=== PATIENT | female | born 1975 | race Caucasian/White ===

== ENCOUNTER 2017-06-13 23:24 | Emergency (ER) | payer SELFPAY ==
[2017-06-13 23:30] VITALS: BP 138/72; PULSE 87; RESP 20; TEMP 37.2; O2SAT 96; BMI 51.5
--- NOTE | 2017-06-14 00:02 | HMH.EDHA ---
ED Disposition Clinical Impression: Migraine Qualifiers: Migraine type: unspecified Status migrainosus presence: with status migrainosus Intractability: intractable Qualified Code(s): G43.911 - Migraine, unspecified, intractable, with status migrainosus Disposition: Home, Self-Care Condition on Discharge: Good Instructions: DI for Migraine Additional Instructions: Additional instructions for HEADACHE: See your physician as soon as possible for further evaluation. Return immediately if worsening headache, vomiting, problems with vision or speech, fever, numbness or weakness of the extremities, neck pain or stiffness. - Critical Care Critical Care Time: No Attestation: On 06/13/17, the high probability of a clinically significant, sudden or life threatening deterioration of the following system(s) required my full and direct attention, intervention and personal management. The time I documented below is in addition to time spent performing reported procedures but includes the following listed in this critical care notation. Medical Decision Making Vital Signs: 06/13/17 23:30 Temperature 98.9 F Temperature Source Oral Pulse Rate [Left Radial] 87 Respiratory Rate 20 Blood Pressure [Left Arm] 138/72 Blood Pressure Mean [Left Arm] 94 02 Sat by Pulse Oximetry 96 Oxygen Delivery Method Room Air Orders (Tests/Meds): ED MEDICATIONS Discontinued Medications Generic Name Dose Route Start Last Admin Trade Name Freq PRN Reason Stop Dose Admin Hydromorphone HCl 2 mg 06/14/17 00:12 06/14/17 00:22 Dilaudid 2mg/Ml Syringe IM 06/14/17 00:13 2 mg ONCE ONE Administration Promethazine HCl 25 mg 06/14/17 00:12 06/14/17 00:22 Phenergan 25mg/Ml 1ml Vial IM 06/14/17 00:13 25 mg ONCE ONE Administration - Noble Inquiry Pt receiving controlled substance: Yes Noble was queried for this patient: Yes Reference #:: [id number] Risks and benefits of using a controlled substance: were not discussed with pt by me (no rx given) Comment: 9 rxs. last rx xanax on 05/24/17. Medical Decision Making Narrative: CTs of brain 2016 and 2015X2. MRI brain 2015. All negative. 1:00 AM: Patient states the medicine has worked she feels better and would like to be discharged. Headache HPI - General Chief Complaint: Headache Stated Complaint: Migraine Headache Mode of Arrival: Wheelchair Limitations: No Limitations Description of Symptoms (Recalled from ER Triage Doc. by RN): Pt reports migraine, with nausea and blurred vision - History of Present Illness HPI Narrative: She has a long history of migraines since the age of 16. She now presents with what she describes as a typical migraine that started yesterday. She describes pain that goes from the back of her head all the way up to both temples and the top of her head. She has nausea, but took Phenergan and therefore has not had any vomiting. She has blurred vision and photophobia. She says when she comes to the emergency room she gets a shot of Dilaudid and Phenergan, which is the only thing that works. She says that she has had other medications such as Toradol and Compazine and others which do not work. She is on Inderal. She does not have any rescue medications at home. She has been on medications that have caused interactions with her other meds. She says she took 800 mg ibuprofen yesterday evening without improvement. - Related Data Home Medications Medication Instructions Recorded Confirmed Duloxetine HCl 20 mg PO BID 06/13/17 06/13/17 Furosemide [Lasix 20mg tab] 20 mg PO DAILY 06/13/17 06/13/17 Levothyroxine Sodium [Synthroid 125 mcg PO DAILY 06/13/17 06/13/17 125mcg (0.125mg) tablet] Promethazine HCl [Phenergan 25mg 25 mg PO NEEDED PRN 06/13/17 06/13/17 tab] Propranolol HCl 10 mg PO BID 06/13/17 06/13/17 Allergies Allergy/AdvReac Type Severity Reaction Status Date / Time sulfamethazine Allergy Mild I-HIVES Verifie
[2017-06-14 01:05] VITALS: BP 138/84
== END 2017-06-14 01:07 | disposition home or self-care (01) ==
PROVIDERS: Emergency Provider Emergency Medicine; Family Provider Internal Medicine Adolescent Medicine
DX: G43.911 Migraine, unspecified, intractable, with status migrainosus (principal); F17.210 Nicotine dependence, cigarettes, uncomplicated; E11.9 Type 2 diabetes mellitus without complications; Z91.041 Radiographic dye allergy status; Z88.5 Allergy status to narcotic agent; Z88.2 Allergy status to sulfonamides; Z79.899 Other long term (current) drug therapy; Z91.09 Other allergy status, other than to drugs and biological substances
CPT/HCPCS: 96372; 99282

== ENCOUNTER 2017-06-30 10:04 | Emergency (ER) | payer OTHER, SELFPAY ==
[2017-06-30 10:04] VITALS: BP 113/64; PULSE 90; RESP 24; TEMP 36.4; O2SAT 98; BMI 51.5
[2017-06-30 10:37] LABS: POC Glucose,Bedside 226 mg/dL
--- NOTE | 2017-06-30 10:40 | HMH.EDGENADL ---
ED Disposition Clinical Impression: Anxiety state, Muscle spasms of both lower extremities Migraine Qualifiers: Migraine type: unspecified Status migrainosus presence: with status migrainosus Intractability: not intractable Qualified Code(s): G43.901 - Migraine, unspecified, not intractable, with status migrainosus Disposition: Home, Self-Care Condition on Discharge: Good Instructions: Migraine -- Adult, DI for Anxiety -- Adult Additional Instructions: Follow-up with Dr. Bass for refill of Xanax. Additional instructions for HEADACHE: See your physician as soon as possible for further evaluation. Return immediately if worsening headache, vomiting, problems with vision or speech, fever, numbness or weakness of the extremities, neck pain or stiffness. Prescriptions: Cyclobenzaprine HCl [Flexeril 10mg tablet] 10 mg PO TIDP PRN #10 tab PRN Reason: Muscle Spasm Referrals: Conrad Bass MD [Primary Care Provider] - Forms: Work/School Release - Critical Care Critical Care Time: No Attestation: On 06/30/17, the high probability of a clinically significant, sudden or life threatening deterioration of the following system(s) required my full and direct attention, intervention and personal management. The time I documented below is in addition to time spent performing reported procedures but includes the following listed in this critical care notation. Medical Decision Making Vital Signs: 06/30/17 10:04 Temperature 97.6 F Temperature Source Temporal Artery Scan Pulse Rate [Right Radial] 90 Respiratory Rate 24 Blood Pressure [Right Arm] 113/64 Blood Pressure Mean [Right Arm] 80 Blood Pressure Source [Right Arm] Automatic Cuff Blood Pressure Position [Right Arm] Sitting 02 Sat by Pulse Oximetry 98 Oxygen Delivery Method Room Air - Lab Data Lab Results 06/30/17 10:29: POC Glucose 226 06/30/17 10:33: Influenza Type A Ag Negative, Influenza Type B Ag Negative 06/30/17 11:10: WBC 11.2 H, RBC 4.90, Hgb 14.1, Hct 42.5, MCV 86.7, MCH 28.7, MCHC 33.2, RDW 14.1, Plt Count 288, MPV 9.6, Neut % (Auto) 72.4, Lymph % (Auto) 19.7, [place] % (Auto) 5.0, Eos % (Auto) 2.4, Baso % (Auto) 0.5, Neut # (Auto) 8.1 H, Lymph # (Auto) 2.2, [place] # (Auto) 0.6, Eos # (Auto) 0.3, Baso # (Auto) 0.1 06/30/17 11:10: Sodium 138, Potassium 3.7, Chloride 101, Carbon Dioxide 28, Anion Gap 12.7, BUN 13, Creatinine 0.94, Estimated Creat Clear 66, Estimated GFR 65, Est GFR ( Amer) 78, Glucose 197 H, Calcium 8.7, Total Bilirubin 0.6, AST 27, ALT 41, Alkaline Phosphatase 107, Total Protein 7.2, Albumin 3.1 L, Globulin 4.1 H, Albumin/Globulin Ratio 0.8 L Result diagrams: 06/30/17 11:10 06/30/17 11:10 Orders (Tests/Meds): ED MEDICATIONS Discontinued Medications Generic Name Dose Route Start Last Admin Trade Name Freq PRN Reason Stop Dose Admin Alprazolam 2 mg 06/30/17 11:00 06/30/17 11:50 Xanax 1mg Tablet PO 06/30/17 11:01 2 mg ONCE ONE Administration Morphine Sulfate 4 mg 06/30/17 10:57 06/30/17 11:20 Morphine 4mg/Ml Syringe IV 06/30/17 10:58 4 mg ONCE ONE Administration Promethazine HCl 12.5 mg 06/30/17 10:58 06/30/17 11:20 Phenergan 25mg/Ml 1ml Vial IV 06/30/17 10:59 12.5 mg ONCE ONE Administration Sodium Chloride 25 ml 06/30/17 10:58 06/30/17 12:08 Sod Chlor 0.9% 25ml Bag IV 06/30/17 10:59 25 ml ONCE ONE Administration ORDERS Category Date Time Status POC Glucose,Bedside Stat Lab 06/30/17 10:22 Ordered - CT Data CT Scan: Head Time Received: 12:[address] Reviewed: Yes: I have viewed the radiologist's interpretation Preliminary Findings: Normal/NAD - Noble Inquiry Pt receiving controlled substance: Yes Noble was queried for this patient: Yes Reference #:: [id number] Risks and benefits of using a controlled substance: were not discussed with pt by me (not given rx for home) Comment: 9 rxs. last rx 30 xanax 2 mg on 05/24/17 Medical Decision Making N
--- NOTE | 2017-06-30 10:57 | CT_ITS ---
CT head/brain wo con HISTORY: ITS.REASON: headache, dizziness ORDERING PHYSICIAN: Josemanuel Patrick MD PATIENT AGE: 42 years COMPARISON: None TECHNIQUE: Axial images obtained without contrast. Brain and bone windows reviewed. FINDINGS: No midline shift, mass effect, intracranial hemorrhage, hydrocephalus, or extra-axial fluid collection is evident. There is a mildly prominent cisterna magna as a normal variant The calvarium has an unremarkable appearance. No mastoid effusion. No sinus air-fluid levels.. IMPRESSION: No acute intracranial findings.
[2017-06-30 11:27] LABS: Basophils # 0.1 K/mm3 (0-0.2); Basophils % 0.5 % (0.1-2.0); Eosinophils # 0.3 K/mm3 (0.0-0.4); Eosinophils % 2.4 % (0.1-12.0); Hematocrit 42.5 % (37.0-47.0); Hemoglobin 14.1 g/dL (12.2-16.2); Lymphocytes # 2.2 K/mm3 (0.7-4.5); Lymphocytes % 19.7 K/mm3 (10-50); Mean Corpuscular HGB Conc 33.2 g/dL (31.8-35.4); Mean Corpuscular Hemoglobin 28.7 pg (27.0-31.2); Mean Corpuscular Volume 86.7 fl (81-99); Mean Platelet Volume 9.6 fl (7.4-10.4); Monocytes # 0.6 K/mm3 (0.1-1.0); Neutrophils # 8.1 K/mm3 (1.8-7.8); Neutrophils % 72.4 % (37.0-80.0); Platelet Count 288 K/mm3 (142-424); Red Cell Distribution Width 14.1 % (11.5-17.5); White Blood Count 11.2 K/mm3 (4.8-10.8)
[2017-06-30 11:32] LABS: Alanine Aminotransferase 41 U/L (12-78); Albumin Level 3.1 gm/dL (3.4-5.0); Albumin/Globulin Ratio 0.8 (1.1-1.8); Alkaline Phosphatase 107 U/L (46-116); Anion Gap 12.7 mEq/L (5-15); Aspartate Amino Transferase 27 U/L (15-37); Bilirubin,Total 0.6 mg/dL (0.2-1.0); Blood Urea Nitrogen 13 mg/dL (7-18); Calcium 8.7 mg/dL (8.5-10.1); Carbon Dioxide 28 mmol/L (21.0-32.0); Chloride 101 mmol/L (98-107); Creatinine Clearance Estimated 66 mL/min (0-300); Creatinine,Serum 0.94 mg/dL (0.55-1.02); Estimated Glomerular Filt Rate 65 ml/min (>60); GFR (African American) 78 ML/MIN (>60); Globulin 4.1 gm/dl (1.3-3.2); Glucose 197 mg/dL (74-106); Potassium 3.7 mmoL/L (3.5-5.1); Sodium 138 mmol/L (136-145); Total Protein,Serum 7.2 gm/dL (6.4-8.2)
[2017-06-30 12:52] VITALS: BP 122/75; PULSE 65; RESP 18; TEMP 36.7; O2SAT 99
== END 2017-06-30 12:52 | disposition home or self-care (01) ==
PROVIDERS: Emergency Provider Emergency Medicine; Family Provider Internal Medicine Adolescent Medicine; PCP Internal Medicine Adolescent Medicine
DX: M62.838 Other muscle spasm (principal); F41.9 Anxiety disorder, unspecified; G43.901 Migraine, unspecified, not intractable, with status migrainosus; Z79.899 Other long term (current) drug therapy; Z88.2 Allergy status to sulfonamides; Z88.6 Allergy status to analgesic agent; E11.9 Type 2 diabetes mellitus without complications; F17.210 Nicotine dependence, cigarettes, uncomplicated
CPT/HCPCS: 70450; 80053; 82962; 85025; 87275; 87276; 99282

== ENCOUNTER → 2017-07-23 11:43 | Outpatient (CLI) | payer OTHER, SELFPAY ==
[2017-07-23 12:14] LABS: Basophils # 0.1 K/mm3 (0-0.2); Basophils % 0.6 % (0.1-2.0); Eosinophils # 0.3 K/mm3 (0.0-0.4); Hematocrit 44.7 % (37.0-47.0); Hemoglobin 14.9 g/dL (12.2-16.2); Lymphocytes # 2.4 K/mm3 (0.7-4.5); Lymphocytes % 21.3 K/mm3 (10-50); Mean Corpuscular HGB Conc 33.3 g/dL (31.8-35.4); Mean Corpuscular Hemoglobin 29.8 pg (27.0-31.2); Mean Corpuscular Volume 89.5 fl (81-99); Mean Platelet Volume 10.1 fl (7.4-10.4); Monocytes # 0.5 K/mm3 (0.1-1.0); Monocytes % 4.4 % (1.7-9.3); Neutrophils # 7.8 K/mm3 (1.8-7.8); Neutrophils % 70.7 % (37.0-80.0); Platelet Count 324 K/mm3 (142-424); Red Blood Count 4.99 M/mm3 (4.20-5.40); Red Cell Distribution Width 14.3 % (11.5-17.5)
[2017-07-23 12:46] LABS: Alanine Aminotransferase 38 U/L (12-78); Albumin Level 3.2 gm/dL (3.4-5.0); Albumin/Globulin Ratio 0.7 (1.1-1.8); Alkaline Phosphatase 135 U/L (46-116); Aspartate Amino Transferase 24 U/L (15-37); Bilirubin,Total 0.3 mg/dL (0.2-1.0); Blood Urea Nitrogen 18 mg/dL (7-18); Calcium 8.8 mg/dL (8.5-10.1); Carbon Dioxide 27 mmol/L (21.0-32.0); Chloride 102 mmol/L (98-107); Creatine Kinase 36 U/L (26-192); Creatinine,Serum 1.16 mg/dL (0.55-1.02); Estimated Glomerular Filt Rate 51 ml/min (>60); GFR (African American) 61 ML/MIN (>60); Globulin 4.5 gm/dl (1.3-3.2); Glucose 246 mg/dL (74-106); Magnesium 1.6 mg/dL (1.4-2.2); Sodium 136 mmol/L (136-145); Thyroid Stimulating Hormone 4.57 uIU/ml (0.358-3.740); Total Protein,Serum 7.7 gm/dL (6.4-8.2)
[2017-07-23 12:49] LABS: Hemoglobin A1C 7.6 % (0.0-7.0)
[2017-07-23 12:56] LABS: Erythrocyte Sedimentation Rate 29 mm/hr (0-20)
[2017-07-24 18:36] LABS: Vitamin D 25 Hydroxy 15.6 ng/mL (30.0-100.0)
[2017-07-27 06:06] LABS: Antinuclear Antibodies, IFA Negative (.)
== END ==
PROVIDERS: Visit Provider Nurse Practitioner Family
DX: M79.1 Myalgia (principal); E03.9 Hypothyroidism, unspecified; E55.9 Vitamin D deficiency, unspecified; E11.69 Type 2 diabetes mellitus with other specified complication
CPT/HCPCS: 36415; 80053; 82550; 82652; 83036; 83735; 84443; 85025; 85651; 86038

== ENCOUNTER 2017-08-11 18:39 | Emergency (ER) | payer OTHER, SELFPAY ==
[2017-08-11 19:11] VITALS: BP 142/93; PULSE 96; RESP 20; TEMP 36.9; O2SAT 96; BMI 51.5
--- NOTE | 2017-08-11 19:52 | HMH.EDUTC ---
[facility] [place] Impression: Sinusitis Qualifiers: Sinusitis location: other Chronicity: unspecified Qualified Code(s): J32.9 - Chronic sinusitis, unspecified Disposition: Home, Self-Care Condition on Discharge: Good Instructions: Sinusitis, Sinus Headache, DI for Sinusitis Additional Instructions: Start antibiotic. Sinus infections may take 2-3 days to notice much improvement so be sure to use conservative measures as discussed for symptoms Flonase 2 spray in each nostril daily to help with nasal congestion, sinus an ear pressure/inflammation Lots of Fluids Sleep elevated Humidifer/vaporizer Augmentin can cause GI effects. Probiotics may help to prevent these symptoms * Monitor Temp. Tylenol and/or Ibuprofen as needed. ER if fever is no less than 101 despite alternating Tylenol and Ibuprofen * Encourage fluids, water, Gatorade, powerade, pedialyte if /toddler/or child * Warm salt water gargles for throat irritation *Warm fluids *Sore throat lozenges *Sleep elevated *humidifier or vaporizer Lots of rest Increase fluids, water, Gatorade, powerade Prescriptions: Azithromycin [Z-Pierre 250mg Tab] 250 mg PO UD DOSE PK #6 tab Dextromethorphan Polistirex [Delsym] 10 ml PO Q12 PRN #350 unruly.er.12h PRN Reason: Cough Fluticasone Propionate [Flonase 50mcg nasal spray 16gm] 2 spr NS DAILY #1 bottle Referrals: Conrad Bass MD [Primary Care Provider] - Time of Disposition: 19:58 Medical Decision Making - Medical Records Medical records reviewed: Yes: I reviewed the patient's medical records. - Noble Inquiry Pt receiving controlled substance: No Noble was queried for this patient: No Vital Signs: 08/11/17 19:11 Temperature 98.5 F Temperature Source Temporal Artery Scan Pulse Rate [Right] 96 H Respiratory Rate 20 Blood Pressure [Right Arm] 142/93 Blood Pressure Mean [Right Arm] 109 Blood Pressure Source [Right Arm] Automatic Cuff Blood Pressure Position [Right Arm] Sitting 02 Sat by Pulse Oximetry 96 Oxygen Delivery Method Room Air - Lab Data Lab results reviewed: Yes: I reviewed the patient's lab results. [facility] [place] - General Stated complaint: left ear,abd pain Time Seen by Provider: 08/11/17 19:35 Mode of Arrival: Ambulatory Source of Information: Patient Limitations: No Limitations Description of Symptoms (Recalled from Triage Doc. by RN): EAR ACHE, CONGESTION HEENT Symptoms (Recalled from RN notes): Yes Resp Symptoms (Recalled from RN notes): No Skin Symptoms (Recalled from RN notes): No MS Symptoms (Recalled from RN notes): No Functional Status (Recalled from RN notes): N - History of Present Illness Provider Complaint: Patient states that she has been having sinus pain and pressure along with pain in her ears States that earlier today she had some nausea however did not have any vomiting State that she feel pressure like feeling in her teeth and feels like her nose is stopped all the way up - Related Data Home Medications Medication Instructions Recorded Confirmed Duloxetine HCl 20 mg PO BID 06/13/17 06/30/17 Furosemide [Lasix 20mg tab] 20 mg PO DAILY PRN 06/13/17 06/30/17 Levothyroxine Sodium [Synthroid 125 mcg PO DAILY 06/13/17 06/30/17 125mcg (0.125mg) tablet] Promethazine HCl [Phenergan 25mg 25 mg PO NEEDED PRN 06/13/17 06/30/17 tab] Propranolol HCl 10 mg PO BID 06/13/17 06/30/17 ALPRAZolam [Xanax 0.5mg tab] 0.5 mg PO DAILY PRN 06/30/17 06/30/17 Glimepiride 4 mg PO BID 06/30/17 06/30/17 Previous Rx's Medication Instructions Recorded Cyclobenzaprine HCl [Flexeril 10mg 10 mg PO TIDP PRN #10 tab 06/30/17 tablet] Azithromycin [Z-Pierre 250mg Tab] 250 mg PO UD DOSE PK #6 tab 08/11/17 Dextromethorphan Polistirex 10 ml PO Q12 PRN #350 unruly.er.12h 08/11/17 [Delsym] Fluticasone Propionate [Flonase 2 spr NS DAILY #1 bottle 08/11/17 50mcg nasal spray 16gm] Allergies Allergy/AdvReac Type Severity Reaction Status Date / Time sulf
--- NOTE | 2017-08-11 19:55 | ED_ITS ---
[facility] [place] Disposition Clinical Impression: Sinusitis Qualifiers: Sinusitis location: other Chronicity: unspecified Qualified Code(s): J32.9 - Chronic sinusitis, unspecified Disposition: Home, Self-Care Condition on Discharge: Good Instructions: Sinusitis, Sinus Headache, DI for Sinusitis Additional Instructions: Start antibiotic. Sinus infections may take 2-3 days to notice much improvement so be sure to use conservative measures as discussed for symptoms Flonase 2 spray in each nostril daily to help with nasal congestion, sinus an ear pressure/inflammation Lots of Fluids Sleep elevated Humidifer/vaporizer Augmentin can cause GI effects. Probiotics may help to prevent these symptoms * Monitor Temp. Tylenol and/or Ibuprofen as needed. ER if fever is no less than 101 despite alternating Tylenol and Ibuprofen * Encourage fluids, water, Gatorade, powerade, pedialyte if /toddler/or child * Warm salt water gargles for throat irritation *Warm fluids *Sore throat lozenges *Sleep elevated *humidifier or vaporizer Lots of rest Increase fluids, water, Gatorade, powerade Prescriptions: Azithromycin [Z-Pierre 250mg Tab] 250 mg PO UD DOSE PK #6 tab Dextromethorphan Polistirex [Delsym] 10 ml PO Q12 PRN #350 unruly.er.12h PRN Reason: Cough Fluticasone Propionate [Flonase 50mcg nasal spray 16gm] 2 spr NS DAILY #1 bottle Referrals: Conrad Bass MD [Primary Care Provider] - Time of Disposition: 19:58 Medical Decision Making - Medical Records Medical records reviewed: Yes: I reviewed the patient's medical records. - Noble Inquiry Pt receiving controlled substance: No Noble was queried for this patient: No Vital Signs: 08/11/17 19:11 Temperature 98.5 F Temperature Source Temporal Artery Scan Pulse Rate [Right] 96 H Respiratory Rate 20 Blood Pressure [Right Arm] 142/93 Blood Pressure Mean [Right Arm] 109 Blood Pressure Source [Right Arm] Automatic Cuff Blood Pressure Position [Right Arm] Sitting 02 Sat by Pulse Oximetry 96 Oxygen Delivery Method Room Air - Lab Data Lab results reviewed: Yes: I reviewed the patient's lab results. [facility] [place] HPI - General Stated complaint: left ear,abd pain Time Seen by Provider: 08/11/17 19:35 Mode of Arrival: Ambulatory Source of Information: Patient Limitations: No Limitations Description of Symptoms (Recalled from Triage Doc. by RN): EAR ACHE, CONGESTION HEENT Symptoms (Recalled from RN notes): Yes Resp Symptoms (Recalled from RN notes): No Skin Symptoms (Recalled from RN notes): No MS Symptoms (Recalled from RN notes): No Functional Status (Recalled from RN notes): N - History of Present Illness Provider Complaint: Patient states that she has been having sinus pain and pressure along with pain in her ears States that earlier today she had some nausea however did not have any vomiting State that she feel pressure like feeling in her teeth and feels like her nose is stopped all the way up - Related Data Home Medications Medication Instructions Recorded Confirmed Duloxetine HCl 20 mg PO BID 06/13/17 06/30/17 Furosemide [Lasix 20mg tab] 20 mg PO DAILY PRN 06/13/17 06/30/17 Levothyroxine Sodium [Synthroid 125 mcg PO DAILY 06/13/17 06/30/17 125mcg (0.125mg) tablet] Promethazine HCl [Phenergan 25mg 25 mg PO NEEDED PRN 06/13/17 06/30/17 tab] Propranolol HCl 10 mg PO BID 06/13/17 06/30/17 ALP
[2017-08-11 19:59] VITALS: BP 140/90; PULSE 90; RESP 20; TEMP 36.9
== END 2017-08-11 20:08 | disposition home or self-care (01) ==
PROVIDERS: Emergency Provider Nurse Practitioner; Family Provider Internal Medicine Adolescent Medicine; PCP Internal Medicine Adolescent Medicine
DX: J32.9 Chronic sinusitis, unspecified (principal); E11.9 Type 2 diabetes mellitus without complications; F17.210 Nicotine dependence, cigarettes, uncomplicated; Z88.2 Allergy status to sulfonamides; Z88.6 Allergy status to analgesic agent
CPT/HCPCS: 99201

== ENCOUNTER → 2018-04-21 11:28 | Outpatient (CLI) | payer MEDICAID, SELFPAY ==
[2018-04-21 12:11] LABS: Basophils % 0.3 % (0.1-2.0); Eosinophils # 0.2 K/mm3 (0.0-0.4); Eosinophils % 1.7 % (0.1-12.0); Hematocrit 42.6 % (37.0-47.0); Hemoglobin 13.7 g/dL (12.2-16.2); Lymphocytes # 1.9 K/mm3 (0.7-4.5); Lymphocytes % 16.2 % (10-50); Mean Corpuscular HGB Conc 32.1 g/dL (31.8-35.4); Mean Corpuscular Hemoglobin 28.1 pg (27.0-31.2); Mean Corpuscular Volume 87.5 fl (81-99); Mean Platelet Volume 9.1 fl (7.4-10.4); Monocytes # 0.6 K/mm3 (0.1-1.0); Monocytes % 4.8 % (1.7-9.3); Neutrophils # 9.1 K/mm3 (1.8-7.8); Neutrophils % 76.8 % (37.0-80.0); Platelet Count 298 K/mm3 (142-424); Red Blood Count 4.87 M/mm3 (4.20-5.40); Red Cell Distribution Width 14.3 % (11.5-17.5); White Blood Count 11.8 K/mm3 (4.8-10.8)
[2018-04-21 12:32] LABS: Hemoglobin A1C 6.9 % (0.0-7.0)
[2018-04-21 14:16] LABS: Alanine Aminotransferase 33 U/L (12-78); Albumin Level 3.6 gm/dL (3.4-5.0); Albumin/Globulin Ratio 0.9 (1.1-1.8); Alkaline Phosphatase 126 U/L (46-116); Anion Gap 17.4 mEq/L (5-15); Aspartate Amino Transferase 17 U/L (15-37); Bilirubin,Total 0.3 mg/dL (0.2-1.0); Blood Urea Nitrogen 15 mg/dL (7-18); Calcium 8.8 mg/dL (8.5-10.1); Carbon Dioxide 23 mmol/L (21.0-32.0); Chloride 101 mmol/L (98-107); Chol/HDL Ratio 3.8 (1-3.5); Cholesterol 141 mg/dL (140-200); Creatinine,Serum 0.83 mg/dL (0.55-1.02); Estimated Glomerular Filt Rate 74 ml/min (>60); Free Thyroxine Index 2.8 ug/dL (5.93-13.13); GFR (African American) 90 ML/MIN (>60); Globulin 3.8 gm/dl (1.3-3.2); Glucose 153 mg/dL (74-106); HDL Cholesterol 37 mg/dL (29-89); LDL Cholesterol 78 mg/dL (0-130); Potassium 4.4 mmoL/L (3.5-5.1); Sodium 137 mmol/L (136-145); T4 (Thyroxine) 8.8 ug/dl (4.7-13.3); Thyroid Stimulating Hormone 9.44 uIU/ml (0.358-3.740); Total Protein,Serum 7.4 gm/dL (6.4-8.2); Triglycerides 128 mg/dL (30-200); Triiodothryronine (T3) Uptake 32 % (31-39); VLDL Cholesterol 26 mg/dL (0-40)
== END ==
PROVIDERS: PCP Internal Medicine Adolescent Medicine; Visit Provider Internal Medicine Adolescent Medicine
DX: E11.69 Type 2 diabetes mellitus with other specified complication (principal); E03.9 Hypothyroidism, unspecified; E55.9 Vitamin D deficiency, unspecified
CPT/HCPCS: 36415; 80053; 80061; 83036; 84436; 84443; 84479; 85025

== ENCOUNTER → 2018-10-05 11:54 | Outpatient (CLI) | payer MEDICAID, SELFPAY ==
[2018-10-05 12:28] LABS: Basophils # 0.1 K/mm3 (0-0.2); Basophils % 0.7 % (0.1-2.0); Eosinophils # 0.4 K/mm3 (0.0-0.4); Eosinophils % 2.9 % (0.1-12.0); Hemoglobin 15.5 g/dL (12.2-16.2); Lymphocytes # 1.8 K/mm3 (0.7-4.5); Lymphocytes % 15.2 % (10-50); Mean Corpuscular HGB Conc 33.6 g/dL (31.8-35.4); Mean Corpuscular Hemoglobin 29.4 pg (27.0-31.2); Mean Corpuscular Volume 87.4 fl (81-99); Mean Platelet Volume 9.7 fl (7.4-10.4); Monocytes # 0.6 K/mm3 (0.1-1.0); Monocytes % 4.9 % (1.7-9.3); Neutrophils # 9.1 K/mm3 (1.8-7.8); Neutrophils % 76.3 % (37.0-80.0); Platelet Count 305 K/mm3 (142-424); Red Blood Count 5.26 M/mm3 (4.20-5.40); Red Cell Distribution Width 13.5 % (11.5-17.5)
[2018-10-05 12:43] LABS: Hemoglobin A1C 10.2 % (0.0-7.0)
[2018-10-05 13:04] LABS: Alanine Aminotransferase 61 U/L (12-78); Albumin Level 3.5 gm/dL (3.4-5.0); Albumin/Globulin Ratio 1.1 (1.1-1.8); Alkaline Phosphatase 127 U/L (46-116); Anion Gap 15.2 mEq/L (5-15); Aspartate Amino Transferase 46 U/L (15-37); Bilirubin,Total 0.8 mg/dL (0.2-1.0); Blood Urea Nitrogen 12 mg/dL (7-18); Calcium 8.5 mg/dL (8.5-10.1); Carbon Dioxide 24 mmol/L (21.0-32.0); Chloride 99 mmol/L (98-107); Chol/HDL Ratio 5.1 (1-3.5); Cholesterol 149 mg/dL (140-200); Creatinine,Serum 0.75 mg/dL (0.55-1.02); Estimated Glomerular Filt Rate 84 ml/min (>60); Free Thyroxine Index 3.8 ug/dL (5.93-13.13); GFR (African American) 101 ML/MIN (>60); Globulin 3.3 gm/dl (1.3-3.2); Glucose 242 mg/dL (74-106); HDL Cholesterol 29 mg/dL (29-89); LDL Cholesterol 89 mg/dL (0-130); Potassium 4.2 mmoL/L (3.5-5.1); Sodium 134 mmol/L (136-145); T4 (Thyroxine) 11.5 ug/dl (4.7-13.3); Thyroid Stimulating Hormone 3.96 uIU/ml (0.358-3.740); Total Protein,Serum 6.8 gm/dL (6.4-8.2); Triglycerides 157 mg/dL (30-200); Triiodothryronine (T3) Uptake 33 % (31-39); VLDL Cholesterol 31 mg/dL (0-40)
[2018-10-06 12:34] LABS: Rapid Plasma Reagin Ab Titer Non Reactive (NonRea<1:1)
[2018-10-06 12:35] LABS: Vitamin B12 710 pg/mL (232-1245); Vitamin D 25 Hydroxy 9.7 ng/mL (30.0-100.0)
== END ==
PROVIDERS: PCP Internal Medicine Adolescent Medicine; Visit Provider Internal Medicine Adolescent Medicine
DX: E11.69 Type 2 diabetes mellitus with other specified complication (principal); E03.9 Hypothyroidism, unspecified; G62.9 Polyneuropathy, unspecified; E55.9 Vitamin D deficiency, unspecified
CPT/HCPCS: 36415; 80053; 80061; 82607; 82652; 83036; 84436; 84443; 84479; 85025; 86592

== ENCOUNTER → 2018-12-13 12:33 | Outpatient (CLI) | payer MEDICAID, SELFPAY ==
--- NOTE | 2018-12-13 12:37 | MR_ITS ---
MR orbits face neck wo/w con CLINICAL INDICATION: ITS.REASON: CONSTANT EXOPHTHALMOS, HEADACHE DISORDER ORDERING PHYSICIAN: Conrad Bass MD PATIENT AGE: 43 years Comparison: 12/06/2018 TECHNIQUE: Coronal T2 STIR, axial 5 T1 pre- and postenhanced and sagittal T2-weighted images. FINDINGS: There is bilateral exophthalmos slightly greater on the left. No retro-orbital mass evident. The extraocular muscles are symmetric and normal in size.. The optic nerves VII unremarkable appearance. No obvious ocular mass. No enhancing lesions are evident. IMPRESSION: Bilateral exophthalmos otherwise negative MRI of the orbits
--- NOTE | 2018-12-13 12:38 | MR_ITS ---
MR head/brain wo/w con HISTORY: ITS.REASON: CONSTANT EXOPHTHALMOS, HEADACHE DISORDER ORDERING PHYSICIAN: Conrad Bass MD PATIENT AGE: 43 years Comparison: 12/06/2018 TECHNIQUE: Standard multiplanar multiecho sequences are performed without and with gadolinium enhancement . FINDINGS: No midline shift, mass effect, intracranial hemorrhage, or hydrocephalus. The cerebellopontine angles, cerebellum, and brainstem have an unremarkable appearance. No evidence of acute infarction. There is normal dow-white matter differentiation. No enhancing lesions are evident. The optic chiasm, pituitary, corpus callosum, and craniocervical junction have an unremarkable appearance. There is mild bilateral exophthalmos left more so than right. Please see MRI of the orbits for further description. No obvious retrobulbar mass. No sinus air-fluid level or mastoid effusion. IMPRESSION: 1. No acute intracranial findings. 2. Mild bilateral exophthalmos left more so than right.
--- NOTE | 2018-12-13 14:45 | XR_ITS ---
XR tibia fibula RT 2V CLINICAL INDICATION: ITS.REASON: RT HIP AND LEG PAIN ORDERING PHYSICIAN: Conrad Bass MD PATIENT AGE: 43 years Comparison: None FINDINGS: No fracture or dislocation. No lytic or blastic change. There are mild osteoarthritic changes of the knee and ankle. Soft tissue calcifications noted in the pretibial region. IMPRESSION: No acute finding
--- NOTE | 2018-12-13 14:45 | XR_ITS ---
XR hip RT 2-3V w/pelvis HISTORY: ITS.REASON: RT HIP AND LEG PAIN ORDERING PHYSICIAN: Conrad Bass MD PATIENT AGE: 43 years COMPARISON: None FINDINGS: An AP view of the pelvis shows mild to moderate osteoarthritic changes of the hips right greater than left. No fracture or dislocation. No lytic or blastic change. IMPRESSION Osteoarthritis of the hips
== END ==
PROVIDERS: PCP Internal Medicine Adolescent Medicine; Visit Provider Internal Medicine Adolescent Medicine
DX: R51 Headache (principal); H05.242 Constant exophthalmos, left eye; M79.604 Pain in right leg; M25.551 Pain in right hip
CPT/HCPCS: 70543; 70553; 73502; 73590; A9576

== ENCOUNTER → 2019-04-27 10:06 | Outpatient (CLI) | payer MEDICAID, SELFPAY ==
[2019-04-27 12:05] LABS: Free Thyroxine Index 3.4 ug/dL (5.93-13.13); T4 (Thyroxine) 11.1 ug/dl (4.7-13.3); Thyroid Stimulating Hormone 9.72 uIU/ml (0.358-3.740); Triiodothryronine (T3) Uptake 31 % (31-39)
[2019-04-27 18:45] LABS: Hemoglobin A1C 8.5 % (0.0-7.0)
[2019-04-28 11:40] LABS: Thyroid Peroxidase Antibodies 30 IU/mL (0-34)
== END ==
PROVIDERS: Visit Provider Internal Medicine Adolescent Medicine
DX: H05.20 Unspecified exophthalmos (principal); E11.69 Type 2 diabetes mellitus with other specified complication; Z79.84 Long term (current) use of oral hypoglycemic drugs
CPT/HCPCS: 36415; 83036; 84436; 84443; 84479; 86376

== ENCOUNTER 2019-09-15 23:24 | Emergency (ER) | payer OTHER, SELFPAY ==
--- NOTE | 2019-09-15 23:14 | ECG_ITS ---
APPROVED REPORT Exam: Resting ECG HR:93 bpm ECG Measurements Heart Rate 93 AXES SD 176 P 45 QRSd 96 QRS -46 QT 374 T 52 QTc 465 <Conclusion> Normal sinus rhythm Incomplete right bundle branch block Left anterior fascicular block Minimal voltage criteria for LVH, may be normal variant Abnormal ECG Electronically signed by : Blaise Spann, 09/16/2019 12:42:58
[2019-09-15 23:24] VITALS: BP 125/75; PULSE 92; RESP 15; TEMP 36.8; O2SAT 95; BMI 51.5
--- NOTE | 2019-09-15 23:38 | XR_ITS ---
PROCEDURE: XR CHEST PORTABLE CLINICAL HISTORY: chest pain Chest pain, smoker COMPARISON: [facility] CT CHEST W/O CONTRAST from 07/05/2016 CXR1 CHEST-PORTABLE from 07/05/2016 CXR CHEST(2 VIEWS-NOT PORTABLE) from 07/09/2016 XR CHEST 2V from 07/20/2019 FINDINGS: The cardiomediastinal silhouette and pulmonary vascularity are within normal limits. The lungs are clear without infiltrates, suspicious nodules, or pleural effusions. No acute bony abnormalities. IMPRESSION: No acute findings. Dictated by: Nehemiah Bryan MD 09/16/2019 07:23 Electronically signed by Nehemiah Bryan MD in [place] 09/16/2019 07:23
[2019-09-15 23:46] LABS: Appearance,Urine CLEAR (Clear); Bilirubin,Urine Negative (Negative); Blood, Urine Negative (Negative); Color,Urine YELLOW (Yellow); Glucose,Urine (UA) Negative (Negative); Ketones,Urine Negative (Negative); Leukocyte Esterase,Urine Negative (Negative); Microscopic, Urine URINE MICROSCOPIC (MICROSCOPIC); Nitrate,Urine Negative (Negative); PH,Urine 6.5 (5.0-8.5); Protein,Urine Negative (Negative); Specific Gravity, Urine 1.025 (1.005-1.030); Urobilinogen,Urine 0.2 EU/dl (0.2)
[2019-09-15 23:47] LABS: Basophils # 0.1 K/mm3 (0-0.2); Basophils % 0.7 % (0.1-2.0); Eosinophils # 0.4 K/mm3 (0.0-0.4); Eosinophils % 3.6 % (0.1-12.0); Hematocrit 42.1 % (37.0-47.0); Hemoglobin 14.1 g/dL (12.2-16.2); Lymphocytes # 1.8 K/mm3 (0.7-4.5); Lymphocytes % 16.7 % (10-50); Mean Corpuscular HGB Conc 33.4 g/dL (31.8-35.4); Mean Corpuscular Hemoglobin 28.7 pg (27.0-31.2); Mean Corpuscular Volume 86.1 fl (81-99); Mean Platelet Volume 9.8 fl (7.4-10.4); Monocytes # 0.6 K/mm3 (0.1-1.0); Monocytes % 5.2 % (1.7-9.3); Neutrophils # 8.1 K/mm3 (1.8-7.8); Neutrophils % 73.8 % (37.0-80.0); Platelet Count 327 K/mm3 (142-424); Red Blood Count 4.89 M/mm3 (4.20-5.40); Red Cell Distribution Width 13.7 % (11.5-17.5)
[2019-09-15 23:50] LABS: Chloride 98 mmol/L (98-107); Sodium 135 mmol/L (136-145)
[2019-09-15 23:53] LABS: Blood Urea Nitrogen 16 mg/dl (7-17); Calcium 9.7 mg/dl (8.4-10.2); Carbon Dioxide 27 mmol/L (22.0-30.0); Creatinine Clearance Estimated 67 mL/min (50-200); Estimated Glomerular Filt Rate 67 ml/min (>60); GFR (African American) 82 ML/MIN (>60); Glucose 230 mg/dl (74-100)
[2019-09-16 00:06] LABS: Troponin I < 0.01 ng/ml (0.00-0.034)
[2019-09-16 00:24] VITALS: BP 117/79; PULSE 81; RESP 16; O2SAT 95
--- NOTE | 2019-09-16 00:24 | HMH.EDCP ---
ED Disposition Clinical Impression: Atypical chest pain Disposition: Home, Self-Care Condition on Discharge: Good Instructions: DI for Atypical Chest Pain Additional Instructions: see pcp for follow up Prescriptions: Ketorolac Tromethamine [Toradol 10mg tablet] 10 mg PO TID 5 Days #9 tab Transmission Status: Pending to [facility] #[id number] Referrals: Jasen Muhammad MD [Primary Care Provider] - - Critical Care Critical Care Time: No Attestation: On 09/15/19, the high probability of a clinically significant, sudden or life threatening deterioration of the following system(s) required my full and direct attention, intervention and personal management. The time I documented below is in addition to time spent performing reported procedures but includes the following listed in this critical care notation. Medical Decision Making - Medical Records Medical records reviewed: Yes: I reviewed the patient's medical records. - Noble Inquiry Pt receiving controlled substance: No Vital Signs: 09/15/19 23:24 Temperature 98.2 F Temperature Source Oral Pulse Rate [Left Radial] 92 H Respiratory Rate 15 Blood Pressure [Right Arm] 125/75 Blood Pressure Mean [Right Arm] 91 Blood Pressure Source [Right Arm] Automatic Cuff Blood Pressure Position [Right Arm] Sitting 02 Sat by Pulse Oximetry 95 Oxygen Delivery Method Room Air - Lab Data Lab results reviewed: Yes: I reviewed the patient's lab results. Lab Results 09/15/19 23:36: Urine Color Yellow, Urine Appearance Clear, Urine pH 6.5, Ur Specific Fisher 1.025, Urine Protein Negative, Urine Glucose (UA) Negative, Urine Ketones Negative, Urine Blood Negative, Urine Nitrate Negative, Urine Bilirubin Negative, Urine Urobilinogen 0.2, Ur Leukocyte Esterase Negative, Ur Squamous Epith Cells 10-20 09/15/19 23:36: Troponin I < 0.01 09/15/19 23:36: WBC 11.0 H, RBC 4.89, Hgb 14.1, Hct 42.1, MCV 86.1, MCH 28.7, MCHC 33.4, RDW 13.7, Plt Count 327, MPV 9.8, Neut % (Auto) 73.8, Lymph % (Auto) 16.7, [place] % (Auto) 5.2, Eos % (Auto) 3.6, Baso % (Auto) 0.7, Neut # (Auto) 8.1 H, Lymph # (Auto) 1.8, [place] # (Auto) 0.6, Eos # (Auto) 0.4, Baso # (Auto) 0.1 09/15/19 23:36: Sodium 135 L, Potassium 4.0, Chloride 98, Carbon Dioxide 27, Anion Gap 14.0, BUN 16, Creatinine 0.90, Estimated Creat Clear 67, Estimated GFR 67, Est GFR ( Amer) 82, Glucose 230 H, Calcium 9.7 09/16/19 01:30: Troponin I < 0.01 Result diagrams: 09/15/19 23:36 09/15/19 23:36 Orders (Tests/Meds): ED MEDICATIONS Generic Name Dose Route Start Last Admin Trade Name Freq PRN Reason Stop Dose Admin Aspirin 243 mg 09/16/19 23:30 Aspirin 81mg Chewable Tablet PO 09/16/19 23:31 ONCE ONE Sodium Chloride 1,000 mls @ 999 mls/hr 09/16/19 23:30 Sod Chlor 0.9% 1000ml Bag IV 09/17/19 00:30 .Q1H1M GRETCHEN Sodium Chloride 1,000 mls @ 999 mls/hr 09/15/19 23:30 09/15/19 23:32 Sod Chlor 0.9% 1000ml Bag IV 09/16/19 00:30 999 mls/hr .Q1H1M GRETCHEN Administration Ketorolac Tromethamine 30 mg 09/16/19 23:30 Toradol 30mg/Ml Vial IV 09/16/19 23:31 ONCE ONE Ondansetron HCl 4 mg 09/16/19 23:30 Zofran 4mg/2ml Vial IV 09/16/19 23:31 ONCE ONE Discontinued Medications Generic Name Dose Route Start Last Admin Trade Name Freq PRN Reason Stop Dose Admin Aspirin 243 mg 09/15/19 23:30 09/15/19 23:32 Aspirin 81mg Chewable Tablet PO 09/15/19 23:31 243 mg ONCE ONE Administration Ketorolac Tromethamine 30 mg 09/15/19 23:30 09/15/19 23:32 Toradol 30mg/Ml Vial IV 09/15/19 23:31 30 mg ONCE ONE Administration Methylprednisolone Sodium Succinate 125 mg 09/16/19 01:05 09/16/19 01:22 Solu-Medrol 125mg/2ml Vial IV 09/16/19 01:06 125 mg ONCE ONE Administration Morphine Sulfate 4 mg 09/16/19 01:05 09/16/19 01:22 Morphine 4mg/Ml Syringe IV 09/16/19 01:06 4 mg ONCE ONE Administration Ondansetron HCl 4 mg 09/15/19 23:30 09/15/19 23:32 Z
[2019-09-16 01:54] VITALS: BP 103/72; PULSE 79; RESP 15; O2SAT 96
[2019-09-16 01:55] LABS: Troponin I < 0.01 ng/ml (0.00-0.034)
[2019-09-16 02:40] VITALS: BP 93/61; PULSE 77; RESP 15; TEMP 36.7; O2SAT 93
== END 2019-09-16 02:44 | disposition home or self-care (01) ==
PROVIDERS: Emergency Provider Emergency Medicine; PCP Emergency Medicine
DX: R07.89 Other chest pain (principal); E11.65 Type 2 diabetes mellitus with hyperglycemia; Z79.84 Long term (current) use of oral hypoglycemic drugs; F17.210 Nicotine dependence, cigarettes, uncomplicated; Z90.49 Acquired absence of other specified parts of digestive tract; Z88.2 Allergy status to sulfonamides; Z88.5 Allergy status to narcotic agent; Z79.899 Other long term (current) drug therapy
CPT/HCPCS: 71045; 80048; 81001; 84484; 85025; 93005; 96365; 96375; 99284; J2405

== ENCOUNTER → 2019-10-16 07:55 | Outpatient (POV) | payer OTHER, SELFPAY | PROVIDERS: PCP Emergency Medicine; Visit Provider Specialist | DX: M79.605 Pain in left leg (principal); M79.604 Pain in right leg; R20.0 Anesthesia of skin; R20.2 Paresthesia of skin | CPT/HCPCS: 95886; 95909 ==

== ENCOUNTER 2019-10-28 22:56 | Emergency (ER) | payer OTHER, SELFPAY ==
--- NOTE | 2019-10-28 23:06 | HMH.EDGENADL ---
ED Disposition Clinical Impression: Left otitis media Qualifiers: Otitis media type: unspecified Qualified Code(s): H66.92 - Otitis media, unspecified, left ear Disposition: Home, Self-Care Condition on Discharge: Good Instructions: DI for Middle Ear Infection-Adult Additional Instructions: Augmentin as prescribed. Clair[place] as needed for pain. Follow-up with primary care provider next week. Additional instructions for CONTROLLED SUBSTANCES: You have been prescribed a medication that is a controlled substance. Controlled substances include pain medications known as opiates and sedative nerve medications known as benzodiazepines. Tramadol, fioricet, and gabapentin are also controlled substances. Some common opiates include: Codeine (such as Tylenol #3) Hydrocodone (Vicodin, Lortab, Lorcet, Clair[place]) Oxycodone (Percocet, Percodan, Oxycodone, Oxy IR) Some common benzodiazepines include: Diazepam (Valium) Lorazepam (Ativan) Alprazolam (Xanax) Clonazepam (Klonopin) Oxazepam (Serax) All of these controlled substances are highly addictive and frequently abused. Misuse can and frequently does lead to addiction as well as overdose and . Medication should be stored in a locked cabinet or other secure storage unit. Do not store the medication in a motor vehicle. Short term supplies, 3 days or less, are prescribed because of the highly addictive nature of the medication. Any of the controlled substance medication NOT taken should be disposed of properly and NOT SAVED. The recommended method of disposing of unused medications is: Place the medicines in a sealable plastic bag. If the medicine is a solid, crush it or add water to dissolve it. Add something undesirable (cat litter, coffee grounds, etc.) Dispose of sealed bag in household trash Do not flush or pour unused medicines down a sink or drain. Controlled substances should not be shared, given away or sold. Because of the addictive nature and frequent abuse, these medications are sometimes stolen. These medications should be kept in a safe place where they cannot be stolen. Do not keep them in your car or purse. Lost or stolen prescriptions for controlled substances WILL NOT BE REFILLED in this emergency department, regardless of whether a police report was filed. Prescriptions: Hydrocod/Acet 5/325 mg [Clair[place] 5/325mg tablet] 1 tab PO Q6HP PRN #8 tab PRN Reason: Pain Transmission Status: Sent to [facility] # Amoxicillin/Potassium Clav [Augmentin 875-125 Tablet] 1 tab PO Q12H #20 tab Transmission Status: Pending to [facility] # Referrals: Conrad Bass MD [Primary Care Provider] - - Critical Care Critical Care Time: No Attestation: On 10/28/19, the high probability of a clinically significant, sudden or life threatening deterioration of the following system(s) required my full and direct attention, intervention and personal management. The time I documented below is in addition to time spent performing reported procedures but includes the following listed in this critical care notation. Medical Decision Making - Noble Inquiry Pt receiving controlled substance: Yes Noble was queried for this patient: Yes Reference #:: [id number] Risks and benefits of using a controlled substance: were discussed with pt by me Comment: 8 rxs. last rx alprazolam Orders (Tests/Meds): ED MEDICATIONS Discontinued Medications Generic Name Dose Route Start Last Admin Trade Name Freq PRN Reason Stop Dose Admin Hydrocodone Bitart/Acetaminophen 1 tab 10/28/19 23:14 [place]air[place] 5/325mg Tablet PO 10/28/19 23:15 ONCE ONE Amoxicillin/Clavulanate Potassium 1 each 10/28/19 23:14 Augmentin 500mg Tablet PO 10/28/19 23:15 ONCE ONE Protocol General Adult HPI - General Stated complaint: lEFT EAR AND jAW PAIN,suazo Time Seen by Provider: 10/28/19 23:10 - History of Present Illness HPI narrative: 3-day
[2019-10-28 23:08] VITALS: BP 154/98; PULSE 98; RESP 20; TEMP 36.9; O2SAT 97; BMI 44.3
[2019-10-28 23:34] VITALS: BP 154/88; PULSE 92; RESP 18; TEMP 36.9; O2SAT 99
== END 2019-10-28 23:36 | disposition home or self-care (01) ==
PROVIDERS: Emergency Provider Emergency Medicine; PCP Internal Medicine Adolescent Medicine
DX: H92.02 Otalgia, left ear (principal); E11.9 Type 2 diabetes mellitus without complications; Z79.899 Other long term (current) drug therapy; F17.210 Nicotine dependence, cigarettes, uncomplicated; Z90.49 Acquired absence of other specified parts of digestive tract; Z88.2 Allergy status to sulfonamides; Z88.5 Allergy status to narcotic agent
CPT/HCPCS: 99281

== ENCOUNTER 2020-04-21 17:28 | Emergency (ER) | payer OTHER, SELFPAY ==
[2020-04-21] VITALS (7 sets, daily range): BP systolic 121–142; BP diastolic 85–100; PULSE 89–116; RESP 17–18; TEMP 36.5–36.7; O2SAT 95–98; BMI 54.9
--- NOTE | 2020-04-21 17:52 | ECG_ITS ---
APPROVED REPORT Exam: Resting ECG HR:106 bpm ECG Measurements Heart Rate 106 AXES ME 168 P 46 QRSd 98 QRS -49 QT 344 T 48 QTc 456 Conclusion Sinus tachycardia Possible Left atrial enlargement Incomplete right bundle branch block Left anterior fascicular block Left ventricular hypertrophy Abnormal ECG Electronically signed by : Conrad Bass, 04/21/2020 19:53:41
--- NOTE | 2020-04-21 17:52 | XR_ITS ---
PROCEDURE: XR CHEST 2V CLINICAL HISTORY: chest donato Chest pain COMPARISON: CT [facility] CT CHEST W/O CONTRAST from 07/05/2016 CR CXR CHEST(2 VIEWS-NOT PORTABLE) from 07/09/2016 CR XR CHEST 2V from 07/20/2019 CR XR CHEST PORTABLE from 09/16/2019 FINDINGS: The cardiomediastinal silhouette and pulmonary vascularity are within normal limits. The lungs are clear without infiltrates, suspicious nodules, or pleural effusions. Degenerative changes in the AC joints and thoracic spine. IMPRESSION: No acute findings. Dictated by: Nehemiah Bryan MD 04/22/2020 05:01 Nehemiah Bryan MD in [facility] 04/22/2020 05:01
[2020-04-21 18:00] LABS: Basophils # 0.2 K/mm3 (0-0.2); Basophils % 1.7 % (0.1-2.0); Eosinophils # 0.4 K/mm3 (0.0-0.4); Eosinophils % 3.6 % (0.1-12.0); Hematocrit 46.6 % (37.0-47.0); Lymphocytes # 1.5 K/mm3 (0.7-4.5); Lymphocytes % 14.8 % (10-50); Mean Corpuscular HGB Conc 32.2 g/dL (31.8-35.4); Mean Corpuscular Hemoglobin 29.9 pg (27.0-31.2); Mean Corpuscular Volume 92.8 fl (81-99); Mean Platelet Volume 9.9 fl (7.4-10.4); Monocytes # 0.5 K/mm3 (0.1-1.0); Monocytes % 4.8 % (1.7-9.3); Neutrophils # 7.5 K/mm3 (1.8-7.8); Neutrophils % 75.1 % (37.0-80.0); Platelet Count 290 K/mm3 (142-424); Red Blood Count 5.02 M/mm3 (4.20-5.40); Red Cell Distribution Width 13.9 % (11.5-17.5)
[2020-04-21 18:02] LABS: Chloride 96 mmol/L (98-107); Potassium 4.3 mmoL/L (3.5-5.1); Sodium 133 mmol/L (136-145)
[2020-04-21 18:05] LABS: Alanine Aminotransferase 56 U/L (12-78); Albumin Level 4.4 g/dl (3.5-5.0); Albumin/Globulin Ratio 1.3 (1.1-1.8); Alkaline Phosphatase 198 U/L (38-126); Anion Gap 14.3 mEq/L (5-15); Aspartate Amino Transferase 59 U/L (14-36); Bilirubin,Total 0.5 mg/dl (0.2-1.3); Blood Urea Nitrogen 18 mg/dl (7-17); Carbon Dioxide 27 mmol/L (22.0-30.0); Creatinine Clearance Estimated 67 mL/min (50-200); Estimated Glomerular Filt Rate 67 ml/min (>60); GFR (African American) 81 ML/MIN (>60); Globulin 3.3 g/dL (1.3-3.2); Total Protein,Serum 7.7 g/dl (6.3-8.2)
[2020-04-21 18:06] LABS: Calcium 9.9 mg/dl (8.4-10.2)
[2020-04-21 18:07] LABS: Glucose 525 mg/dl (74-100)
[2020-04-21 18:20] LABS: Troponin I < 0.01 ng/ml (0.00-0.034)
[2020-04-21 18:21] LABS: VBG Base Excess -1.5 mmol/L (-2.4-2.3); VBG HCO3 23.5 mmol/L (23-30); VBG Oxygen Saturation 76.4 % (50-70); VBG PCO2 40.1 mmol/L (35-51); VBG PH 7.39 mmol/L (7.31-7.41); VBG PO2 39.3 mmol/L (28-40); VBG Total CO2 24.7 mmol/L (23-27)
[2020-04-21 18:27] LABS: Acetone, Serum (Rapid) None Detected (None Detect)
[2020-04-21 18:42] LABS: Microscopic, Urine URINE MICROSCOPIC (MICROSCOPIC)
[2020-04-21 18:55] LABS: Appearance,Urine CLEAR (Clear); Bilirubin,Urine Negative (Negative); Blood, Urine Negative (Negative); Color,Urine YELLOW (Yellow); Glucose,Urine (UA) 3+ (Negative); Ketones,Urine Negative (Negative); Leukocyte Esterase,Urine Negative (Negative); Nitrate,Urine Negative (Negative); Protein,Urine Negative (Negative); Specific Gravity, Urine 1.015 (1.005-1.030); Urobilinogen,Urine 0.2 EU/dl (0.2)
--- NOTE | 2020-04-21 19:24 | PC.NURSE ---
report received from day nurse. pt up in . no complaints offered at this time.
--- NOTE | 2020-04-21 19:29 | HMH.EDGENADL ---
ED Disposition Condition on Discharge: Fair - Critical Care Critical Care Time: No <Josemanuel Patrick - Last Filed: 04/21/20 20:36> <Jasen Muhammad - Last Filed: 04/21/20 21:52> Clinical Impression: Atypical chest pain, Hyperglycemia, Anxiety state Obesity Qualifiers: Obesity type: due to excess calories Obesity classification: adult class 3 (BMI >= 40) Serious obesity comorbidity presence: with serious comorbidity Body mass index: BMI 50.0-59.9 Qualified Code(s): E66.01 - Morbid (severe) obesity due to excess calories; Z68.43 - Body mass index [BMI] 50.0-59.9, adult Disposition: Home, Self-Care Instructions: DI for Acute Pain -- Adult Additional Instructions: call pcp in am for follow up Referrals: Conrad Bass MD [Primary Care Provider] - Attestation: On 04/21/20, the high probability of a clinically significant, sudden or life threatening deterioration of the following system(s) required my full and direct attention, intervention and personal management. The time I documented below is in addition to time spent performing reported procedures but includes the following listed in this critical care notation. Medical Decision Making - Medical Records Medical records reviewed: Yes: I reviewed the patient's medical records. MR Comment: Reviewed prior cardiac catheter result, below - Noble Inquiry Pt receiving controlled substance: Yes Noble was queried for this patient: No Reason not queried -: Emergent pt cond-no time Risks and benefits of using a controlled substance: were not discussed with pt by me - Lab Data Result diagrams: 04/21/20 17:45 04/21/20 17:45 <Josemanuel Patrick - Last Filed: 04/21/20 20:36> - Lab Data Result diagrams: 04/21/20 17:45 04/21/20 17:45 <Jasen Muhammad - Last Filed: 04/21/20 21:52> Vital Signs: 04/21/20 17:45 04/21/20 19:29 04/21/20 20:00 Temperature 97.7 F Temperature Source Oral Pulse Rate [Right Radial] 116 H 98 H 101 H Respiratory Rate 18 17 Blood Pressure [Right Arm] 142/100 H 121/92 H 142/85 H Blood Pressure Mean [Right Arm] 114 101 104 Blood Pressure Source [Right Arm] Automatic Cuff Blood Pressure Position [Right Arm] Sitting Sitting 02 Sat by Pulse Oximetry 95 96 95 Oxygen Delivery Method Room Air Room Air Room Air 04/21/20 20:30 04/21/20 21:00 04/21/20 21:30 Temperature Temperature Source Pulse Rate [Right Radial] 107 H 108 H 104 H Respiratory Rate Blood Pressure [Right Arm] 139/90 138/93 H 132/95 H Blood Pressure Mean [Right Arm] 106 108 107 Blood Pressure Source [Right Arm] Automatic Cuff Automatic Cuff Automatic Cuff Blood Pressure Position [Right Arm] Sitting Sitting Sitting 02 Sat by Pulse Oximetry 95 Oxygen Delivery Method - Lab Data Lab Results 04/21/20 17:45: WBC 10.0, RBC 5.02, Hgb 15.0, Hct 46.6, MCV 92.8, MCH 29.9, MCHC 32.2, RDW 13.9, Plt Count 290, MPV 9.9, Neut % (Auto) 75.1, Lymph % (Auto) 14.8, Ritchie % (Auto) 4.8, Eos % (Auto) 3.6, Baso % (Auto) 1.7, Neut # (Auto) 7.5, Lymph # (Auto) 1.5, Ritchie # (Auto) 0.5, Eos # (Auto) 0.4, Baso # (Auto) 0.2 04/21/20 17:45: Sodium 133 L, Potassium 4.3, Chloride 96 L, Carbon Dioxide 27, Anion Gap 14.3, BUN 18 H, Creatinine 0.90, Estimated Creat Clear 67, Estimated GFR 67, Est GFR ( Amer) 81, Glucose 525 H*, Calcium 9.9, Total Bilirubin 0.5, AST 59 H, ALT 56, Alkaline Phosphatase 198 H, Troponin I < 0.01, Total Protein 7.7, Albumin 4.4, Globulin 3.3 H, Albumin/Globulin Ratio 1.3 04/21/20 17:45: Acetone Level None detected 04/21/20 17:45: D-Dimer 0.57 04/21/20 17:45: Hemoglobin A1c 10.9 H 04/21/20 18:20: Urine Color Yellow, Urine Appearance Clear, Urine pH 6.0, Ur Specific [place] 1.015, Urine Protein Negative, Urine Glucose (UA) 3+, Urine Ketones Negative, Urine Blood Negative, Urine Nitrate Negative, Urine Bilirubin Negative, Urine Urobilinogen 0.2, Ur Leukocyte Esterase Negative, Urine WBC 3-5, Ur Squamous Epith Cells 3-5 04/21/20 18:20: VBG pH 7.39, VBG pCO2
[2020-04-21 20:03] LABS: D-Dimer 0.57 ug/mL (0.15-8.0)
[2020-04-21 20:08] LABS: Hemoglobin A1C 10.9 % (4.0-6.0)
[2020-04-21 21:11] LABS: POC Glucose,Bedside 474 (70-110)
[2020-04-21 21:11] LABS: POC Glucose,Bedside 312 (70-110)
[2020-04-21 21:46] LABS: Troponin I < 0.01 ng/ml (0.00-0.034)
== END 2020-04-21 22:03 | disposition home or self-care (01) ==
PROVIDERS: Emergency Medicine; Emergency Provider Emergency Medicine; PCP Internal Medicine Adolescent Medicine
DX: R07.89 Other chest pain (principal); E66.01 Morbid (severe) obesity due to excess calories; Z68.43 Body mass index [BMI] 50.0-59.9, adult; E11.65 Type 2 diabetes mellitus with hyperglycemia; F17.210 Nicotine dependence, cigarettes, uncomplicated; Z79.899 Other long term (current) drug therapy; Z88.2 Allergy status to sulfonamides; Z88.8 Allergy status to other drugs, medicaments and biological substances
CPT/HCPCS: 36415; 71046; 80053; 81001; 82009; 82803; 82962; 83036; 84484; 85025; 85378; 93005; 96365; 96375; 99283; J2405

== ENCOUNTER → 2020-07-16 09:39 | Outpatient (CLI) | payer OTHER, SELFPAY ==
[2020-07-16 10:19] LABS: Basophils # 0.1 K/mm3 (0-0.2); Basophils % 0.7 % (0.1-2.0); Eosinophils # 0.4 K/mm3 (0.0-0.4); Eosinophils % 3.1 % (0.1-12.0); Hemoglobin 14.3 g/dL (12.2-16.2); Lymphocytes # 2.2 K/mm3 (0.7-4.5); Lymphocytes % 18.9 % (10-50); Mean Corpuscular HGB Conc 32.4 g/dL (31.8-35.4); Mean Corpuscular Hemoglobin 28.9 pg (27.0-31.2); Mean Corpuscular Volume 89.2 fl (81-99); Mean Platelet Volume 9.9 fl (7.4-10.4); Monocytes # 0.6 K/mm3 (0.1-1.0); Monocytes % 5.5 % (1.7-9.3); Neutrophils # 8.3 K/mm3 (1.8-7.8); Neutrophils % 71.8 % (37.0-80.0); Platelet Count 273 K/mm3 (142-424); Red Blood Count 4.93 M/mm3 (4.20-5.40); Red Cell Distribution Width 14.6 % (11.5-17.5); White Blood Count 11.6 K/mm3 (4.8-10.8)
[2020-07-16 11:31] LABS: Alanine Aminotransferase 40 U/L (12-78); Albumin Level 3.8 g/dl (3.5-5.0); Albumin/Globulin Ratio 1.2 (1.1-1.8); Alkaline Phosphatase 130 U/L (38-126); Anion Gap 9.8 mEq/L (5-15); Aspartate Amino Transferase 48 U/L (14-36); Bilirubin,Total 0.3 mg/dl (0.2-1.3); Blood Urea Nitrogen 28 mg/dl (7-17); Calcium 9.5 mg/dl (8.4-10.2); Carbon Dioxide 28 mmol/L (22.0-30.0); Chloride 102 mmol/L (98-107); Chol/HDL Ratio 5.4 (1-3.5); Cholesterol 163 mg/dl (140-200); Estimated Glomerular Filt Rate 53 ml/min (>60); GFR (African American) 64 ML/MIN (>60); Globulin 3.1 g/dL (1.3-3.2); Glucose 282 mg/dl (74-100); HDL Cholesterol 30 mg/dl (40-60); Potassium 4.8 mmoL/L (3.5-5.1); Sodium 135 mmol/L (136-145); Total Protein,Serum 6.9 g/dl (6.3-8.2); Triglycerides 339 mg/dl (30-150); VLDL Cholesterol 68 mg/dL (0-40)
[2020-07-16 11:41] LABS: Direct LDL Cholesterol 77.33 mg/dL (100-129)
[2020-07-16 11:58] LABS: Hemoglobin A1C 10.6 % (4.0-6.0)
[2020-07-16 12:01] LABS: Thyroid Stimulating Hormone 5.61 uIU/mL (0.465-4.68)
== END ==
PROVIDERS: Visit Provider Internal Medicine Adolescent Medicine
DX: E11.69 Type 2 diabetes mellitus with other specified complication (principal); E03.9 Hypothyroidism, unspecified; Z79.84 Long term (current) use of oral hypoglycemic drugs
CPT/HCPCS: 36415; 80053; 80061; 83036; 84443; 85025

== ENCOUNTER 2021-01-24 19:09 | Emergency (ER) | payer OTHER, SELFPAY ==
[2021-01-24 20:31] VITALS: PULSE 119; RESP 18; TEMP 36.4; O2SAT 100; BMI 51.5
--- NOTE | 2021-01-24 20:50 | HMH.EDUTC ---
[facility] [place] Disposition Clinical Impression: Sinusitis Qualifiers: Sinusitis location: unspecified location Chronicity: acute Recurrence: non-recurrent Qualified Code(s): J01.90 - Acute sinusitis, unspecified Otitis media Qualifiers: Otitis media type: suppurative Chronicity: acute Laterality: right Recurrence: non-recurrent Spontaneous tympanic membrane rupture: without spontaneous rupture Qualified Code(s): H66.001 - Acute suppurative otitis media without spontaneous rupture of ear drum, right ear Disposition: Home, Self-Care Condition on Discharge: Good Instructions: Middle Ear Infection, Shoulder Tendinopathy, DI for Sinusitis, DI for Shoulder Tendinopathy Additional Instructions: Drink plenty of fluids. Take tylenol or ibuprofen for pain or fever. Take the medications as directed. Follow up with your regular doctor. GO TO THE ER FOR ANY WORSENING SYMPTOMS Quarantine until you know the results of your covid-19 test. If it is positive, the health department should call you and give you further instructions about your length of Quarantine and other things. Notify your school or workplace of your results and follow their instructions regarding return to work/school. Rest your shoulder and arm. Follow up with orthopedics or your primary care physician if this keeps hurting you. I put in a referral to Dr. Marley for orthopedics. He would be very good for you to follow up with have your arm pain evaluated further if it continues. His office number will be on this paperwork. I put in a referral to him, but you would still need to call his office and schedule an appointment. Prescriptions: Amoxicillin/Potassium Clav [Augmentin 875-125 Tablet] 1 tab PO Q12H 10 Days #20 tab Transmission Status: Received by [facility] #[id number] Ciprofloxacin HCl/Dexameth [Cipro 0.3%-Dex 0.1% Otic Susp 7.5mL] 2 drops EAR-RIGHT BID 7 Days #1 ml Transmission Status: Received by [facility] #[id number] Referrals: Conrad Bass MD [Primary Care Provider] - Arron Marley MD [Staff Physician] - Time of Disposition: 21:13 Medical Decision Making - Medical Records Medical records reviewed: No: I reviewed the patient's medical records. - Noble Inquiry Pt receiving controlled substance: No Vital Signs: 01/24/21 20:31 01/24/21 21:20 Temperature 97.6 F 0 F L Temperature Source Oral Pulse Rate 0 L Pulse Rate [Left] 119 H Respiratory Rate 18 0 L Blood Pressure 0/0 L 02 Sat by Pulse Oximetry 100 [facility] UTC HPI - General Stated complaint: possible sinus and ear infection inured L arm Time Seen by Provider: 01/24/21 20:50 Mode of Arrival: Ambulatory Source of Information: Patient Limitations: No Limitations Description of Symptoms (Recalled from Triage Doc. by RN): pt c/o R ear infection and sinus infection HEENT Symptoms (Recalled from RN notes): Yes (ear and sinus pressure/pain) Resp Symptoms (Recalled from RN notes): No Skin Symptoms (Recalled from RN notes): No MS Symptoms (Recalled from RN notes): No Functional Status (Recalled from RN notes): na - History of Present Illness Provider Complaint: She has had right ear pain and right sided facial swelling and pressure. She has a history of getting sinus and ear infections kind of often. She denies any exposure to covid. She also has some left arm pain when she raises her right arm up. Her pain is located in her mid humerus region on the arm. She does not have pain unless she is trying to raise her arm up. She denies other mucsculoskelatal pain. - Related Data Home Medications Medication Instructions Recorded Confirmed Furosemide [Lasix 20mg tab] 20 mg PO DAILY PRN 06/13/17 07/20/19 Levothyroxine Sodium [Synthroid 125 mcg PO DAILY 06/13/17 07/20/19 125mcg (0.125mg) tablet] Promethazine HCl [Phenergan 25mg 25 mg PO NEEDED PRN 06/13/17 07/20/19 tab] Propranolol HCl 10 mg PO BID 06/13/17 07/20/19 Glimepiride 4 mg PO BID 06/30/17
[2021-01-24 21:20] VITALS: BP 0/0; PULSE 0; RESP 0; TEMP -17.7; TEMP 0
== END 2021-01-24 21:20 | disposition home or self-care (01) ==
LOC: UTC 19:14
PROVIDERS: Emergency Provider Nurse Practitioner Family; PCP Internal Medicine Adolescent Medicine
DX: J01.90 Acute sinusitis, unspecified (principal); H66.001 Acute suppurative otitis media without spontaneous rupture of ear drum, right ear; E11.9 Type 2 diabetes mellitus without complications; F17.210 Nicotine dependence, cigarettes, uncomplicated
CPT/HCPCS: 99202; G0463

== ENCOUNTER 2021-02-23 15:16 | Emergency (ER) | payer OTHER, SELFPAY ==
[2021-02-23 15:18] VITALS: BP 139/103; PULSE 96; RESP 18; TEMP 36.7; O2SAT 97; BMI 45.6
--- NOTE | 2021-02-23 15:37 | XR_ITS ---
PROCEDURE INFORMATION: Exam: XR Left Shoulder Exam date and time: 02/23/2021 3:37 PM Age: 46 years old Clinical indication: Shoulder; Left; Patient HX: Pain for 2 days, no known injury. TECHNIQUE: Imaging protocol: XR Left shoulder. Views: 2 or more views. COMPARISON: ADI SHOU3L [id number] VIEWS 07/01/2016 7:47 PM FINDINGS: Bones/joints: No acute fracture or dislocation. Normal bone mineralization. Spurring at the margins of the AC joint. Glenohumeral joint is normal. Included ribs are unremarkable. Soft tissues: No soft tissue swelling or radiopaque foreign body. IMPRESSION: AC joint degenerative change.
--- NOTE | 2021-02-23 15:37 | XR_ITS ---
PROCEDURE INFORMATION: Exam: XR Left Humerus Exam date and time: 02/23/2021 3:37 PM Age: 46 years old Clinical indication: Pain; Upper arm; Left TECHNIQUE: Imaging protocol: XR Left humerus. Views: 2 or more views. COMPARISON: CR XR SHOULDER LT MIN 2V 02/23/2021 3:38 PM FINDINGS: Bones/joints: No acute fracture or dislocation. Bone mineralization is normal. No lytic or sclerotic osseous lesions. Soft tissues: Normal. IMPRESSION: No acute findings.
[2021-02-23 15:43] VITALS: BP 135/102; PULSE 103; RESP 18; O2SAT 93
--- NOTE | 2021-02-23 16:01 | HMH.EDGENADL ---
ED Disposition Clinical Impression: Migraine Qualifiers: Migraine type: unspecified Status migrainosus presence: without status migrainosus Intractability: not intractable Qualified Code(s): G43.909 - Migraine, unspecified, not intractable, without status migrainosus Rotator cuff strain Qualifiers: Encounter type: initial encounter Laterality: left Qualified Code(s): S46.012A - Strain of muscle(s) and tendon(s) of the rotator cuff of left shoulder, initial encounter Disposition: Home, Self-Care Condition on Discharge: Good Instructions: Migraine -- Adult Referrals: Conrad Bass MD [Primary Care Provider] - - Critical Care Critical Care Time: No Attestation: On 02/23/21, the high probability of a clinically significant, sudden or life threatening deterioration of the following system(s) required my full and direct attention, intervention and personal management. The time I documented below is in addition to time spent performing reported procedures but includes the following listed in this critical care notation. Medical Decision Making - Medical Records Medical records reviewed: Yes: I reviewed the patient's medical records. - Noble Inquiry Pt receiving controlled substance: No Vital Signs: 02/23/21 15:18 02/23/21 15:43 Temperature 98.1 F Temperature Source Oral Pulse Rate 103 H Pulse Rate [Right Radial] 96 H Respiratory Rate 18 18 Blood Pressure 135/102 H Blood Pressure [Right Arm] 139/103 H Blood Pressure Mean [Right Arm] 115 Blood Pressure Source [Right Arm] Automatic Cuff Blood Pressure Position [Right Arm] Sitting 02 Sat by Pulse Oximetry 97 93 L Oxygen Delivery Method Room Air Room Air Orders (Tests/Meds): ED MEDICATIONS Generic Name Dose Route Start Last Admin Trade Name Freq PRN Reason Stop Dose Admin Sodium Chloride 1,000 mls @ 999 mls/hr 02/23/21 15:45 02/23/21 15:53 Sod Chlor 0.9% 1000ml Bag IV 02/23/21 16:45 999 mls/hr .Q1H1M GRETCHEN Administration Discontinued Medications Generic Name Dose Route Start Last Admin Trade Name Freq PRN Reason Stop Dose Admin Diphenhydramine HCl 25 mg 02/23/21 15:37 02/23/21 15:53 Diphenhydramine 50mg/Ml Vial IV 02/23/21 15:38 25 mg ONCE ONE Administration Ketorolac Tromethamine 30 mg 02/23/21 15:37 02/23/21 15:53 Ketorolac 30mg/Ml Vial IV 02/23/21 15:38 30 mg ONCE ONE Administration Ondansetron HCl 4 mg 02/23/21 15:53 02/23/21 15:55 Ondansetron 4mg/2ml Vial IV 02/23/21 15:54 4 mg ONCE ONE Administration ORDERS Category Date Time Status XR humerus LT Stat Exams 02/23/21 15:37 Taken XR shoulder LT min 2V Stat Exams 02/23/21 15:37 Taken - Radiology Data #1 Image(s): Shoulder, Humerus Image Reviewed: Yes I reviewed the patient's radiology results, Yes I reviewed the patient's radiology image Preliminary Findings: Normal/NAD, No Fracture Seen - Reevaluation(s) Time: 17:10 Reevaluation #1: On reevaluation, patient is feeling much better. Headache is improved. Patient is tolerating oral intake without any significant difficulties. Repeat examination of the upper arm did not show any abnormality. Patient is to follow-up with PCP in 48 hours. Given strict return precautions. Verbalized understanding. Medical Decision Narrative: 46-year-old female presented to the emergency department with some left shoulder discomfort. Symptoms consistent with a rotator cuff sprain. Patient has full range of motion. Symptoms are also consistent with a migraine. Work-up initiated. General Adult HPI - General Chief complaint: Headache Stated complaint: [id number] l arm injured WITT Time Seen by Provider: 02/23/21 15:30 Mode of Arrival: Wheelchair Limitations: No Limitations Description of Symptoms (Recalled from ER Triage Doc. by RN): pt to ed per pvt car. Pt states approx 2 weeks ago she fell into her fridge at home and caught her body weight with her left arm. Pt states being evaluate
[2021-02-23 18:04] VITALS: BP 141/91; PULSE 89; RESP 18; TEMP 36.9; O2SAT 93
== END 2021-02-23 18:06 | disposition home or self-care (01) ==
PROVIDERS: Emergency Provider Emergency Medicine; PCP Internal Medicine Adolescent Medicine
DX: G43.909 Migraine, unspecified, not intractable, without status migrainosus (principal); S46.012A Strain of muscle(s) and tendon(s) of the rotator cuff of left shoulder, initial encounter
CPT/HCPCS: 73030; 73060; 96365; 96375; 99282; J2405

== ENCOUNTER 2021-03-14 10:43 | Outpatient (RCR) | payer OTHER, SELFPAY ==
--- NOTE | 2021-03-14 11:30 | HMH.OTOPEV ---
OT Inpatient Evaluation Rehab OT Outpatient Eval Start: 03/14/21 11:15 Freq: Status: Active Protocol: Document 03/14/21 11:19 RMJOSHUA (Rec: 03/14/21 11:30 [id number] Electronically Signed By Sekou Pendleton OT 03/14/21 11:19 Outpatient Therapy Subjective History Subjective History Pt is a 46 year old female who reports to therapy for initial evaluation to left shoulder. Pt has a past medical history of Migraines, HTN, Anxiety, Fibromyalgia, Neuropathy, and DM type 2. Pt reports ~2 months ago she fell and tried to catch herself with L arm. Since this accident she has had constant pain and limited AROM /strength. At this time, she has not had a MRI. She did have x-rays with no acute findings. Pt does demonstrate with significant decline in AROM and strength. Pt will continue to be seen to address deficits. Chief Complaint Pain,Stiff,Weakness Symptom Type Ache,Throb,Sharp,Dull Symptoms Relieved By Nothing Symptoms Aggravated By Physical Activity,Lifting Prior Functional Limitations None Current Functional Limitations Reaching,Lifting,Housework, Dressing,Sleeping,Recreation Activity Symptom Description Constant but Variable Level of pain today (0-10) 6 Pain scale - at its best (0-10) 5 Pain scale - at its worst (0-10) 10 Shoulder/Elbow Eval Shoulder Objective Measurements Shoulder ROM Left Shoulder Abduction Active Range of 70 degrees Motion (degrees) Shoulder Flexion Active Range of Motion 80 degrees (degrees) Query Text: Shoulder External Rotation Active Range 25 degrees of Motion (degrees) Shoulder Internal Rotation Active Range 30 degrees of Motion (degrees) pain with active ROM shoulder exam left standard pain with passive ROM shoulder exam left standard decreased ROM shoulder exam standard left Shoulder MMT Shoulder Abduction Strength Grade 2 Poor Shoulder Extension Strength Grade 2 Poor Shoulder Flexion Strength Grade 2 Poor Shoulder External Rotation Strength 2 Poor Grade Shoulder Internal Rota
== END 2021-03-14 10:45 | disposition home or self-care (01) ==
LOC: OT 10:43
PROVIDERS: PCP Internal Medicine Adolescent Medicine; Visit Provider Nurse Practitioner Family
DX: M25.512 Pain in left shoulder (principal)
CPT/HCPCS: 97166

== ENCOUNTER 2021-06-23 16:53 | Emergency (ER) | payer OTHER, SELFPAY ==
--- NOTE | 2021-06-23 16:47 | ECG_ITS ---
APPROVED REPORT Exam: Resting ECG HR:98 bpm ECG Measurements Heart Rate 98 AXES AK 179 P 56 QRSd 92 QRS -54 QT 342 T 58 QTc 398 Conclusion SINUS RHYTHM POSSIBLE LEFT ATRIAL ENLARGEMENT [-0.1mV P-WAVE IN V1/V2] PATTERN CONSISTENT WITH PULMONARY DISEASE INCOMPLETE RIGHT BUNDLE BRANCH BLOCK [90+ ms QRS DURATION, TERMINAL R IN V1/V2, 40+ ms S IN I/aVL/V4/V5/V6] LEFT ANTERIOR FASCICULAR BLOCK [QRS AXIS <= -45, QR IN I, RS IN II] POSSIBLE LEFT VENTRICULAR HYPERTROPHY [VOLTAGE CRITERIA PLUS LAE OR QRS WIDENING] MINIMAL ST DEPRESSION [0.025+ mV ST DEPRESSION] ABNORMAL ECG UNCONFIRMED REPORT Electronically signed by : Conrad Bass MD 06/23/2021 20:33:03
[2021-06-23 16:53] VITALS: BP 136/91; PULSE 104; RESP 22; TEMP 36.8; O2SAT 98; BMI 51.5
--- NOTE | 2021-06-23 17:02 | XR_ITS ---
PROCEDURE INFORMATION: Exam: XR Chest Exam date and time: 06/23/2021 5:02 PM Age: 46 years old Clinical indication: Pain; Chest pressure; Patient HX: Smoker; Additional info: Cp TECHNIQUE: Imaging protocol: XR of the chest. Views: 1 view. Other contrast: Oral; COMPARISON: CR XR CHEST 2V 04/21/2020 6:12 PM FINDINGS: Lungs: Unremarkable. No consolidation. Pleural spaces: Unremarkable. No pleural effusion. No pneumothorax. Heart/Mediastinum: Unremarkable. No cardiomegaly. Diaphragm: Slight elevation of the right hemidiaphragm. Bones/joints: Unremarkable. IMPRESSION: No acute process.
--- NOTE | 2021-06-23 17:03 | HMH.EDGENADL ---
ED Disposition Condition on Discharge: Good - Critical Care Critical Care Time: No <Adria Sen - Last Filed: 06/23/21 17:55> Condition on Discharge: Good - Critical Care Critical Care Time: No <Swathi Downey - Last Filed: 06/23/21 18:43> Clinical Impression: Panic attack Chest pain Qualifiers: Chest pain type: other chest pain Qualified Code(s): R07.89 - Other chest pain Disposition: Home, Self-Care Instructions: DI for Atypical Chest Pain Additional Instructions: You have been evaluated for chest pain and panic attack. Your work-up today does not show evidence of a heart attack. It is very important that you take all medications as prescribed. Follow-up with your primary care doctor in 1 to 2 days for symptom recheck. Return to the emergency department Referrals: Provider,Referral, [Referring] - Attestation: On 06/23/21, the high probability of a clinically significant, sudden or life threatening deterioration of the following system(s) required my full and direct attention, intervention and personal management. The time I documented below is in addition to time spent performing reported procedures but includes the following listed in this critical care notation. Medical Decision Making - Medical Records Medical records reviewed: Yes: I reviewed the patient's medical records. - Noble Inquiry Pt receiving controlled substance: No - Lab Data Result diagrams: 06/23/21 17:02 06/23/21 17:02 <Adria Sen - Last Filed: 06/23/21 17:55> - Lab Data Result diagrams: 06/23/21 17:02 06/23/21 17:02 <Swathi Downey - Last Filed: 06/23/21 18:43> Vital Signs: 06/23/21 16:53 06/23/21 17:15 Temperature 98.3 F Temperature Source Oral Pulse Rate 94 H Pulse Rate [Right Radial] 104 H Respiratory Rate 22 Blood Pressure 111/87 Blood Pressure [Right Arm] 136/91 H Blood Pressure Mean [Right Arm] 106 Blood Pressure Source [Right Arm] Automatic Cuff Blood Pressure Position [Right Arm] Sitting 02 Sat by Pulse Oximetry 98 95 Oxygen Delivery Method Room Air - Lab Data Lab Results 06/23/21 17:02: WBC 11.5 H, RBC 5.65 H, Hgb 16.0, Hct 48.7 H, MCV 86.2, MCH 28.4, MCHC 32.9, RDW 13.9, Plt Count 358, MPV 11.1 H, Neut % (Auto) 69.2, Lymph % (Auto) 20.1, Wythe % (Auto) 6.7, Eos % (Auto) 2.3, Baso % (Auto) 1.7, Neut # (Auto) 7.9 H, Lymph # (Auto) 2.3, Wythe # (Auto) 0.8, Eos # (Auto) 0.3, Baso # (Auto) 0.2 06/23/21 17:02: Sodium 132 L, Potassium 4.5, Chloride 102, Carbon Dioxide 20 L, Anion Gap 14.5, BUN 20 H, Creatinine 1.00, Estimated Creat Clear 59, Estimated GFR 59, Est GFR ( Amer) 72, Glucose 247 H, Calcium 11.0 H, Total Bilirubin 0.7, AST 65 H, ALT 48, Alkaline Phosphatase 131 H, Troponin I < 0.01, Total Protein 7.6, Albumin 4.1, Globulin 3.5 H, Albumin/Globulin Ratio 1.2 Orders (Tests/Meds): ED MEDICATIONS Generic Name Dose Route Start Last Admin Trade Name Freq PRN Reason Stop Dose Admin Sodium Chloride 10 ml 06/23/21 17:02 Sodium Chloride 0.9% 10ml Vial IV 07/23/21 17:01 NEEDED PRN to Dilute Lorazepam inj Discontinued Medications Generic Name Dose Route Start Last Admin Trade Name Freq PRN Reason Stop Dose Admin Aspirin 325 mg 06/23/21 17:01 06/23/21 17:14 Aspirin 325mg Tablet PO 06/23/21 17:02 325 mg ONCE ONE Administration Lorazepam 0.5 mg 06/23/21 17:02 06/23/21 17:13 Lorazepam 2mg/Ml Vial IV 06/23/21 17:03 0.5 mg ONCE ONE Administration ORDERS Category Date Time Status Troponin I Q3H Lab 06/23/21 20:15 Ordered Troponin I Q3H Lab 06/23/21 23:15 Ordered Medical Decision Narrative: ekg by me nsr, lae, baseline artifactual, no st elev (Adria Sen) I took over care of this patient at shift change at 6:00pm. I was asked to follow up on second troponin and help disposition accordingly. Initial troponin was undetectable. EKG shows sinus rhythm without ST segment elevations. On my initi
--- NOTE | 2021-06-23 17:14 | PC.NURSE ---
Rad at bedside
[2021-06-23 17:15] VITALS: BP 111/87; PULSE 94; O2SAT 95
[2021-06-23 17:28] LABS: Basophils # 0.2 K/mm3 (0-0.2); Basophils % 1.7 % (0.1-2.0); Chloride 102 mmol/L (98-107); Eosinophils # 0.3 K/mm3 (0.0-0.4); Eosinophils % 2.3 % (0.1-12.0); Hematocrit 48.7 % (37.0-47.0); Lymphocytes # 2.3 K/mm3 (0.7-4.5); Lymphocytes % 20.1 % (10-50); Mean Corpuscular HGB Conc 32.9 g/dL (31.8-35.4); Mean Corpuscular Hemoglobin 28.4 pg (27.0-31.2); Mean Corpuscular Volume 86.2 fl (81-99); Mean Platelet Volume 11.1 fl (7.4-10.4); Monocytes # 0.8 K/mm3 (0.1-1.0); Monocytes % 6.7 % (1.7-9.3); Neutrophils # 7.9 K/mm3 (1.8-7.8); Neutrophils % 69.2 % (37.0-80.0); Platelet Count 358 K/mm3 (142-424); Red Blood Count 5.65 M/mm3 (4.20-5.40); Red Cell Distribution Width 13.9 % (11.5-17.5); White Blood Count 11.5 K/mm3 (4.8-10.8)
[2021-06-23 17:29] LABS: Potassium 4.5 mmoL/L (3.5-5.1); Sodium 132 mmol/L (136-145)
[2021-06-23 17:31] LABS: Alanine Aminotransferase 48 U/L (12-78); Aspartate Amino Transferase 65 U/L (14-36); Blood Urea Nitrogen 20 mg/dl (7-17); Creatinine Clearance Estimated 59 mL/min (50-200); Estimated Glomerular Filt Rate 59 ml/min (>60); GFR (African American) 72 ML/MIN (>60)
[2021-06-23 17:32] LABS: Albumin Level 4.1 g/dl (3.5-5.0); Albumin/Globulin Ratio 1.2 (1.1-1.8); Alkaline Phosphatase 131 U/L (38-126); Anion Gap 14.5 mEq/L (5-15); Bilirubin,Total 0.7 mg/dl (0.2-1.3); Carbon Dioxide 20 mmol/L (22.0-30.0); Globulin 3.5 g/dL (1.3-3.2); Glucose 247 mg/dl (74-100); Total Protein,Serum 7.6 g/dl (6.3-8.2)
[2021-06-23 17:52] LABS: Troponin I < 0.01 ng/ml (0.00-0.034)
[2021-06-23 19:37] LABS: Troponin I < 0.01 ng/ml (0.00-0.034)
[2021-06-23 20:12] VITALS: BP 121/72; PULSE 89; RESP 18; TEMP 36.8; O2SAT 97
== END 2021-06-23 20:13 | disposition home or self-care (01) ==
PROVIDERS: Emergency Provider Emergency Medicine; PCP Internal Medicine Adolescent Medicine
DX: F41.0 Panic disorder [episodic paroxysmal anxiety] (principal); R07.89 Other chest pain; E11.65 Type 2 diabetes mellitus with hyperglycemia; F17.210 Nicotine dependence, cigarettes, uncomplicated; Z88.2 Allergy status to sulfonamides
CPT/HCPCS: 71045; 80053; 84484; 85025; 93005; 96375; 99282

== ENCOUNTER 2021-08-10 17:00 | Emergency (ER) | payer OTHER, SELFPAY ==
[2021-08-10 17:23] VITALS: BP 112/66; PULSE 121; RESP 16; TEMP 36.7; O2SAT 96; BMI 49.8
[2021-08-10 17:37] VITALS: BMI 49.8
--- NOTE | 2021-08-10 17:39 | CT_ITS ---
PROCEDURE INFORMATION: Exam: CT Head Without Contrast Exam date and time: 08/10/2021 6:43 PM Age: 46 years old Clinical indication: Dizziness; Additional info: Migraine, with vomiting and nausea and dizziness TECHNIQUE: Imaging protocol: Computed tomography of the head without contrast. Radiation optimization: All CT scans at this facility use at least one of these dose optimization techniques: automated exposure control; mA and/or kV adjustment per patient size (includes targeted exams where dose is matched to clinical indication); or iterative reconstruction. COMPARISON: FINDINGS: Brain: Normal. No hemorrhage. Unremarkable white matter. No mass effect. Cerebral ventricles: No ventriculomegaly. Paranasal sinuses: Visualized sinuses are unremarkable. No fluid levels. Mastoid air cells: Visualized mastoid air cells are well aerated. Bones/joints: Unremarkable. No acute fracture. Soft tissues: Unremarkable. IMPRESSION: No acute intracranial abnormality.
--- NOTE | 2021-08-10 17:54 | HMH.ITSTN ---
called the ER and spoke to Marcie and advised I need a test on this patient before we can do the CT scan
--- NOTE | 2021-08-10 18:04 | PC.NURSE ---
SEnt urine for UPT
--- NOTE | 2021-08-10 18:20 | HMH.EDGENADL ---
ED Disposition Clinical Impression: Status migrainosus Disposition: Home, Self-Care Condition on Discharge: Good Additional Instructions: Go home to rest in a dark room. Continue Tylenol, Phenergan, and Benadryl as needed. Additional instructions for HEADACHE: See your physician as soon as possible for further evaluation. Return immediately if worsening headache, vomiting, problems with vision or speech, fever, numbness or weakness of the extremities, neck pain or stiffness. Referrals: Conrad Bass MD [Primary Care Provider] - - Critical Care Critical Care Time: No Attestation: On 08/10/21, the high probability of a clinically significant, sudden or life threatening deterioration of the following system(s) required my full and direct attention, intervention and personal management. The time I documented below is in addition to time spent performing reported procedures but includes the following listed in this critical care notation. Medical Decision Making - Noble Inquiry Pt receiving controlled substance: Yes Noble was queried for this patient: Yes Risks and benefits of using a controlled substance: were not discussed with pt by me Vital Signs: 08/10/21 17:23 Temperature 98.1 F Temperature Source Oral Pulse Rate [Right Radial] 121 H Respiratory Rate 16 Blood Pressure [Right Arm] 112/66 Blood Pressure Mean [Right Arm] 81 02 Sat by Pulse Oximetry 96 - Lab Data Lab Results 08/10/21 17:45: WBC 12.2 H, RBC 5.29, Hgb 15.2, Hct 45.2, MCV 85.5, MCH 28.7, MCHC 33.6, RDW 14.6, Plt Count 346, MPV 9.9, Neut % (Auto) 74.4, Lymph % (Auto) 15.5, Carter % (Auto) 6.0, Eos % (Auto) 2.5, Baso % (Auto) 1.6, Neut # (Auto) 9.1 H, Lymph # (Auto) 1.9, Carter # (Auto) 0.7, Eos # (Auto) 0.3, Baso # (Auto) 0.2 08/10/21 17:45: Sodium 135 L, Potassium 4.5, Chloride 107, Carbon Dioxide 19 L, Anion Gap 13.5, BUN 22 H, Creatinine 1.00, Estimated Creat Clear 59, Estimated GFR 59, Est GFR ( Amer) 72, Glucose 225 H, Calcium 9.0, Total Bilirubin 0.9, AST 55 H, ALT 38, Alkaline Phosphatase 132 H, Total Protein 7.5, Albumin 3.9, Globulin 3.6 H, Albumin/Globulin Ratio 1.1 08/10/21 17:55: Urine HCG, Qual Negative Result diagrams: 08/10/21 17:45 08/10/21 17:45 Orders (Tests/Meds): ED MEDICATIONS Generic Name Dose Route Start Last Admin Trade Name Freq PRN Reason Stop Dose Admin Sodium Chloride 1,000 mls @ 999 mls/hr 08/10/21 17:45 08/10/21 17:50 Sod Chlor 0.9% 1000ml Bag IV 08/10/21 18:45 999 mls/hr .Q1H1M GRETCHEN Administration Sodium Chloride 10 ml 08/10/21 17:38 Sodium Chloride 0.9% 10ml Flush Syringe IV 09/09/21 17:37 NEEDED PRN Maintain IV Site Discontinued Medications Generic Name Dose Route Start Last Admin Trade Name Freq PRN Reason Stop Dose Admin Butorphanol Tartrate 1 mg 08/10/21 18:40 08/10/21 18:57 Butorphanol Tartrate 1 Mg/Ml Vial IV 08/10/21 18:41 1 mg ONCE ONE Administration Ketorolac Tromethamine 30 mg 08/10/21 17:40 08/10/21 17:50 Ketorolac 30mg/Ml Vial IV 08/10/21 17:41 30 mg ONCE ONE Administration Ondansetron HCl 4 mg 08/10/21 17:40 08/10/21 17:49 Ondansetron 4mg/2ml Vial IV 08/10/21 17:41 4 mg ONCE ONE Administration Prochlorperazine Edisylate 5 mg 08/10/21 18:40 08/10/21 18:57 Prochlorperazine 10mg/2ml Vial IV 08/10/21 18:41 5 mg ONCE ONE Administration - CT Data CT Scan: Head Time Received: 19:[address] Reviewed: Yes: I have viewed the radiologist's interpretation Findings Narrative: PROCEDURE INFORMATION: Exam: CT Head Without Contrast Exam date and time: 08/10/2021 6:43 PM Age: 46 years old Clinical indication: Dizziness; Additional info: Migraine, with vomiting and nausea and dizziness TECHNIQUE: Imaging protocol: Computed tomography of the head without contrast. Radiation optimization: All CT scans at this facility use at least one of these dose optimization techniques: automated expos
[2021-08-10 18:21] LABS: Basophils # 0.2 K/mm3 (0-0.2); Basophils % 1.6 % (0.1-2.0); Eosinophils # 0.3 K/mm3 (0.0-0.4); Eosinophils % 2.5 % (0.1-12.0); Hematocrit 45.2 % (37.0-47.0); Hemoglobin 15.2 g/dL (12.2-16.2); Lymphocytes # 1.9 K/mm3 (0.7-4.5); Lymphocytes % 15.5 % (10-50); Mean Corpuscular HGB Conc 33.6 g/dL (31.8-35.4); Mean Corpuscular Hemoglobin 28.7 pg (27.0-31.2); Mean Corpuscular Volume 85.5 fl (81-99); Mean Platelet Volume 9.9 fl (7.4-10.4); Monocytes # 0.7 K/mm3 (0.1-1.0); Neutrophils # 9.1 K/mm3 (1.8-7.8); Neutrophils % 74.4 % (37.0-80.0); Platelet Count 346 K/mm3 (142-424); Red Blood Count 5.29 M/mm3 (4.20-5.40); Red Cell Distribution Width 14.6 % (11.5-17.5); White Blood Count 12.2 K/mm3 (4.8-10.8)
[2021-08-10 18:22] LABS: Chloride 107 mmol/L (98-107); Sodium 135 mmol/L (136-145)
[2021-08-10 18:23] LABS: Potassium 4.5 mmoL/L (3.5-5.1)
[2021-08-10 18:25] LABS: Alanine Aminotransferase 38 U/L (12-78); Alkaline Phosphatase 132 U/L (38-126); Anion Gap 13.5 mEq/L (5-15); Aspartate Amino Transferase 55 U/L (14-36); Bilirubin,Total 0.9 mg/dl (0.2-1.3); Blood Urea Nitrogen 22 mg/dl (7-17); Carbon Dioxide 19 mmol/L (22.0-30.0); Creatinine Clearance Estimated 59 mL/min (50-200); Estimated Glomerular Filt Rate 59 ml/min (>60); GFR (African American) 72 ML/MIN (>60)
[2021-08-10 18:26] LABS: Albumin Level 3.9 g/dl (3.5-5.0); Albumin/Globulin Ratio 1.1 (1.1-1.8); Globulin 3.6 g/dL (1.3-3.2); Glucose 225 mg/dl (74-100); Total Protein,Serum 7.5 g/dl (6.3-8.2)
[2021-08-10 18:37] LABS: Urine Pregnancy, HCG Qual. Negative (Negative)
[2021-08-10 19:01] VITALS: BP 108/69; PULSE 99; O2SAT 94
[2021-08-10 19:30] VITALS: BP 117/79; PULSE 100; O2SAT 95
[2021-08-10 20:09] VITALS: BP 123/77; PULSE 104; RESP 18; TEMP 36.7; O2SAT 97
== END 2021-08-10 20:11 | disposition home or self-care (01) ==
PROVIDERS: Emergency Provider Emergency Medicine; PCP Internal Medicine Adolescent Medicine
DX: G43.111 Migraine with aura, intractable, with status migrainosus (principal); E11.9 Type 2 diabetes mellitus without complications; Z88.2 Allergy status to sulfonamides
CPT/HCPCS: 70450; 80053; 81025; 85025; 96365; 96375; 99284; J0595; J2405

== ENCOUNTER → 2022-08-20 14:17 | Outpatient (CLI) | payer OTHER, SELFPAY ==
--- NOTE | 2022-08-20 14:26 | XR_ITS ---
FINAL REPORT CLINICAL HISTORY: Low back and hip pain COMPARISON: None FINDINGS: LUMBOSACRAL SPINE SERIES Five views of the lumbosacral spine were obtained. There is no fracture present. There is no malalignment. There is moderate anterior osteophyte formation at L3-4. IMPRESSION: No acute bony abnormality. Reviewed, Interpreted and Dictated by Modesto Lou MD Transcribed by Caitlin Luke Authenticated and [facility]
--- NOTE | 2022-08-20 14:27 | XR_ITS ---
FINAL REPORT CLINICAL HISTORY: Right hip pain COMPARISON: None FINDINGS: RIGHT HIP Two views of the right hip demonstrate no acute fracture or dislocation. There are advanced hypertrophic changes of osteoarthritis at the right hip. There is moderate joint space narrowing. There is moderate acetabular hypertrophy. IMPRESSION: Moderately advanced osteoarthritis. Reviewed, Interpreted and Dictated by Modesto Lou MD Transcribed by Caitlin Luke Authenticated and . [facility]
--- NOTE | 2022-08-20 14:35 | XR_ITS ---
FINAL REPORT CLINICAL HISTORY: Left hip pain COMPARISON: None FINDINGS: LEFT HIP: Two views of the left hip demonstrate no acute fracture or dislocation. Advanced hypertrophic changes of osteoarthritis at the left hip. There is mild hip joint space narrowing. Femoral head has a smooth contour. There is mild osteophyte along the lateral acetabular margin. IMPRESSION: Mild to moderate osteoarthritis. Reviewed, Interpreted and Dictated by Modesto Lou MD Transcribed by Caitlin Luke Authenticated and [facility]
== END ==
PROVIDERS: PCP Internal Medicine Adolescent Medicine; Visit Provider Internal Medicine Adolescent Medicine
DX: M54.50 Low back pain, unspecified (principal); M25.551 Pain in right hip; M25.552 Pain in left hip; M79.651 Pain in right thigh
CPT/HCPCS: 72110; 73502

== ENCOUNTER 2022-10-14 08:09 | Day surgery (SDC) | payer OTHER, SELFPAY ==
--- NOTE | 2022-10-14 | FL_ITS ---
FINAL REPORT CLINICAL HISTORY: rt hip injection in OR FINDINGS: FLUOROSCOPY LESS THAN 1 HOUR HISTORY: Fluoroscopy guided injection. FINDINGS: Fluoroscopic guidance was provided for right hip injection. A single spot film was obtained. Six seconds of fluoroscopy time were used. IMPRESSION: As above. Reviewed, Interpreted and Dictated by Modesto Lou MD Transcribed by Caitlin Luke Authenticated and [facility]
[2022-10-14 08:10] VITALS: BP 137/80; PULSE 98; RESP 18; TEMP 36.4; O2SAT 98; BMI 47.9
[2022-10-14 08:17] VITALS: BMI 47.9
[2022-10-14 08:31] LABS: HCG Qualitative, Serum Negative (Negative)
[2022-10-14 09:11] VITALS: BP 111/69; PULSE 101; RESP 14; TEMP 36.6; O2SAT 95
--- NOTE | 2022-10-14 09:17 | EXP.OP.NOTE ---
Date of procedure: 10/14/22 Pre-op Diagnosis:: Right hip osteoarthritis Post-op Diagnosis:: Same Procedure performed:: Right hip injection with x-ray guidance for needle placement Surgeon:: Juan Francisco Hilton DO Anesthesia: other Estimated blood loss (mL): 0 Operative findings:: See dictation Operative note:: Patient was identified preoperatively. Right hip marked with yes my initials. Taken to operating suite. Placed upon on the radiolucent operating table. Given sedation. Right hip was prepped and draped normal sterile fashion. Once prepped and draped final operative timeout performed to identify proper patient procedure and extremity. Everyone involved the case agreed. No counter indications to beginning. X-ray was brought in to identify the hip joint. Because of her allergy of contrast media we did not do arthrogram but did use the x-ray machine for confirmation of needle placement within the hip capsule. 18-gauge spinal needle was introduced into the hip capsule and confirmed on the x-ray. And then injection of 80 mg of triamcinolone 3 cc of 1% lidocaine injected to the hip patient tolerated procedure well was awakened from sedation taken recovery in stable condition. Condition: stable Disposition: PACU Complications:: None apparent
[2022-10-14 09:21] VITALS: BP 108/74; PULSE 108; RESP 16; O2SAT 93
[2022-10-14 09:31] VITALS: BP 120/74; PULSE 104; RESP 16; O2SAT 95
[2022-10-14 09:52] VITALS: BP 103/52; PULSE 99; RESP 17; O2SAT 95
--- NOTE | 2022-10-14 09:58 | P.PN_ITS ---
[facility] Disclaimer: The information contained in this section may have been updated after the patient was seen, as this information can be updated by other users. Medical History (Updated 10/14/22 @ 08:09 by Brice Ruiz RN) Anxiety Depression Diabetes Fibromyalgia Hypothyroid IBS (irritable bowel syndrome) Migraines Surgical History (Updated 10/14/22 @ 08:08 by Brice Ruiz RN) History of section History of D&C History of tubal ligation Family History (Updated 10/14/22 @ 08:09 by Brice Ruiz RN) Other Family history of cardiac disorder Family history of depression Family history of diabetes mellitus Family history of liver disease Social History (Updated 10/14/22 @ 08:10 by Brice Ruiz RN) Smoking Status: Current every day smoker tobacco type: cigarettes packs per day: 1 second hand exposure: Yes alcohol intake: never substance use type: denies use current occupational status: employed Travel in the last 8 weeks: None household members: spouse housing: house [facility] Anesthesia Checklist Patient Identification Patient Identification: Verbal (Name & ) Structural Data Admitted From: Home Planned Operative Procedure/s: r hip injection Consent for Planned Operative Procedure(s) Verified: Yes NPO Status Verified Time NPO: 00:00 Additional verifications Anesthesia Reactions: No ( mean ) Hx Blood Transfusions: No Blood Transfusion Reaction: No Airway Assessment C-Spine Mobility Assessed: Yes TMJ Mobility Assessed: Yes Dentition: Good Dentition Neurological Assessment Level of Consciousness: Awake, Alert and Appropriate Anesthesia Plan Anesthesia Risk discussed: Yes Anesthesia Plan: Verified ASA Class: III Anesthesia Type: MAC
== END 2022-10-14 09:55 | disposition home or self-care (01) ==
PROVIDERS: PCP Internal Medicine Adolescent Medicine; Visit Provider Orthopaedic Surgery
PROC: (CPT 20610; principal; 2022-10-14 13:00)
DX: M16.11 Unilateral primary osteoarthritis, right hip (principal); F17.210 Nicotine dependence, cigarettes, uncomplicated
CPT/HCPCS: 20610; 77002; 84703

== ENCOUNTER 2022-11-18 09:15 | Day surgery (SDC) | payer OTHER, SELFPAY ==
--- NOTE | 2022-11-18 | XR_ITS ---
FINAL REPORT CLINICAL HISTORY: LEFT HIP INJECTION IN OR fluoro time: .6 FINDINGS: FLUOROSCOPY LESS THAN 1 HOUR HISTORY: Fluoroscopy guided injection. FINDINGS: Fluoroscopic guidance was provided for left hip injection. A single spot film was obtained. 6 seconds of fluoroscopy time were used. IMPRESSION: As above. Reviewed, Interpreted and Dictated by Soni Augustine MD Transcribed by Caitlin Luke Authenticated and [facility]
[2022-11-18 09:37] VITALS: BP 118/79; PULSE 66; RESP 18; TEMP 36.5; O2SAT 95; BMI 43.3
--- NOTE | 2022-11-18 09:39 | EXP.ANES.CKL ---
[facility] Disclaimer: The information contained in this section may have been updated after the patient was seen, as this information can be updated by other users. Medical History Anxiety Depression Diabetes Fibromyalgia Hypothyroid IBS (irritable bowel syndrome) Migraines Surgical History History of section History of D&C History of tubal ligation Family History Other Family history of cardiac disorder Family history of depression Family history of diabetes mellitus Family history of liver disease Social History Smoking Status: Current every day smoker tobacco type: cigarettes packs per day: 1 second hand exposure: Yes alcohol intake: never substance use type: denies use current occupational status: employed Travel in the last 8 weeks: None household members: spouse housing: house [facility] Anesthesia Checklist Patient Identification Patient Identification: Arm Band and Verbal (Name & ) Structural Data Planned Operative Procedure/s: left hip injection Verified Documents: Surgical Consent and History and Physical Additional verifications Anesthesia Reactions: No ( mean ) Hx Blood Transfusions: No Blood Transfusion Reaction: No Airway Assessment C-Spine Mobility Assessed: Yes TMJ Mobility Assessed: Yes Dentition: Good Dentition Neurological Assessment Level of Consciousness: Awake and Alert Anesthesia Plan Anesthesia Risk discussed: Yes Anesthesia Type: IV sedation Preoperative Comments Pre-Operative Comments: poss GA
[2022-11-18 09:52] VITALS: BMI 43.6
[2022-11-18 10:00] LABS: Urine Pregnancy, HCG Qual. Negative (Negative)
[2022-11-18 10:13] LABS: POC Glucose,Bedside 155 (70-110)
--- NOTE | 2022-11-18 10:33 | EXP.OP.NOTE ---
Date of procedure: 11/18/22 Pre-op Diagnosis:: Left hip osteoarthritis Post-op Diagnosis:: Same Procedure performed:: Left hip injection with x-ray guidance for needle placement Surgeon:: Juan Francisco Hilton DO INFORMATION SPECIALIST:: Other Anesthesia: other Estimated blood loss (mL): 0 Clinical Note:: 47-year-old female with concomitant lumbar spine issues hip osteoarthritis had previous right hip injection and got reasonably good results wished undergo left hip injection presents today for such. Operative findings:: See dictation Operative note:: Patient is identified preoperatively left hip marked yes my initials transported operative suite placed upon the in the radiolucent bed. Left hip prepped and draped normal sterile fashion. Once prepped and draped final operative timeout performed to identify proper patient procedure and extremity. Everyone involved the case agreed. No counter indications to beginning. X-rays brought into identify the hip joint. 18-gauge spinal needle was directed into the neck and the femoral head. Patient was allergic to contrast therefore no contrast was used during the procedure. Needle was placed into the capsule there is a palpable entrance into the capsule x-ray confirmed needle within the capsule and then hip was injected with 80 mg Kenalog 3 cc of lidocaine. Needle removed. Band-Aid placed. Patient waken for sedation taken recovery stable condition. Condition: stable Disposition: PACU Complications:: None apparent
[2022-11-18 10:40] VITALS: BP 125/79; PULSE 77; RESP 18; TEMP 36.3; O2SAT 94
[2022-11-18 10:50] VITALS: BP 126/74; PULSE 72; RESP 18; O2SAT 96
[2022-11-18 11:10] VITALS: BP 139/79; PULSE 74; RESP 17; O2SAT 98
== END 2022-11-18 11:10 | disposition home or self-care (01) ==
PROVIDERS: PCP Internal Medicine Adolescent Medicine; Visit Provider Orthopaedic Surgery
PROC: (CPT 20610; principal; 2022-11-18 10:45)
DX: M16.12 Unilateral primary osteoarthritis, left hip (principal); F17.210 Nicotine dependence, cigarettes, uncomplicated
CPT/HCPCS: 20610; 73502; 81025; 82962

== ENCOUNTER → 2022-11-30 16:30 | Outpatient (CLI) | payer OTHER, SELFPAY ==
[2022-11-30 17:26] LABS: Basophils # 0.1 K/mm3 (0-0.2); Basophils % 0.9 % (0.1-2.0); Eosinophils # 0.4 K/mm3 (0.0-0.4); Eosinophils % 2.4 % (0.1-12.0); Hematocrit 51.6 % (37.0-47.0); Hemoglobin 16.7 g/dL (12.2-16.2); Lymphocytes # 2.1 K/mm3 (0.7-4.5); Lymphocytes % 14.3 % (10-50); Mean Corpuscular HGB Conc 32.4 g/dL (31.8-35.4); Mean Corpuscular Hemoglobin 28.2 pg (27.0-31.2); Mean Platelet Volume 8.7 fl (7.4-10.4); Monocytes # 0.8 K/mm3 (0.1-1.0); Monocytes % 5.4 % (1.7-9.3); Neutrophils # 11.3 K/mm3 (1.8-7.8); Platelet Count 340 K/mm3 (142-424); Red Blood Count 5.93 M/mm3 (4.20-5.40); Red Cell Distribution Width 15.4 % (11.5-17.5); White Blood Count 14.7 K/mm3 (4.8-10.8)
[2022-11-30 17:41] LABS: Alanine Aminotransferase 29 U/L (12-78); Albumin Level 4.3 g/dl (3.5-5.0); Albumin/Globulin Ratio 1.5 (1.1-1.8); Alkaline Phosphatase 120 U/L (38-126); Anion Gap 12.7 mEq/L (5-15); Aspartate Amino Transferase 28 U/L (14-36); Bilirubin,Total 0.4 mg/dl (0.2-1.3); Blood Urea Nitrogen 16 mg/dl (7-17); Calcium 9.4 mg/dl (8.4-10.2); Carbon Dioxide 22 mmol/L (22.0-30.0); Chloride 106 mmol/L (98-107); Chol/HDL Ratio 3.7 (1-3.5); Cholesterol 217 mg/dl (140-200); Estimated Glomerular Filt Rate 76 ml/min (>60); GFR (African American) 92 ML/MIN (>60); Globulin 2.9 g/dL (1.3-3.2); Glucose 200 mg/dl (74-100); HDL Cholesterol 58 mg/dl (40-60); Potassium 4.7 mmoL/L (3.5-5.1); Sodium 136 mmol/L (136-145); Total Protein,Serum 7.2 g/dl (6.3-8.2); Triglycerides 244 mg/dl (30-150); VLDL Cholesterol 49 mg/dL (0-40)
[2022-11-30 17:53] LABS: Hemoglobin A1C 7.4 % (4.0-6.0)
[2022-11-30 17:58] LABS: Direct LDL Cholesterol 108.66 mg/dL (100-129)
[2022-11-30 17:59] LABS: 25-OH Vitamin D, Total 34.7 ng/mL (30-100)
[2022-11-30 18:12] LABS: Thyroid Stimulating Hormone 9.55 uIU/mL (0.465-4.68)
== END ==
PROVIDERS: PCP Internal Medicine Adolescent Medicine; Visit Provider Internal Medicine Adolescent Medicine
DX: E03.9 Hypothyroidism, unspecified (principal); E55.9 Vitamin D deficiency, unspecified; E11.69 Type 2 diabetes mellitus with other specified complication; Z79.84 Long term (current) use of oral hypoglycemic drugs
CPT/HCPCS: 36415; 80053; 80061; 82306; 83036; 84443; 85025

== ENCOUNTER → 2023-03-04 12:53 | Outpatient (POV) | payer OTHER, SELFPAY ==
--- NOTE | 2023-03-04 13:08 | EXP.PAIN.OV ---
HPI Data of Consult Patient: new to practice Consult date: 03/04/23 Requesting Physician: Merry Hilton APRN Primary Care Provider: Conrad Bass MD Consult Narrative Reason for consult: Neck pain, low back pain, right leg pain, bilateral hip pain History of present illness: Ms. Thomson is a 48 year old female who presents today as a new patient. She is a referral from Harvey Hilton's office. Today she rates her pain an 8 out of 10. Patient states her pain is all in higher bilateral hips, low back with radiating symptoms down her entire right leg as well as neck pain that goes into her shoulders. Patient does state these pains have been going on for more than a year and progressively worsened over time. Patient states that there was not any specific trauma or injury that she recalls that initially started the symptoms however she has had multiple injuries in the past including broken bones and falling through a floor. Patient does describe her pain as an aching, throbbing sensation that is worse with increased activity. Patient does state the pain interferes with her ability to perform activities of daily living such as cooking and cleaning. Patient does state that she is seeing Dr. Hilton for her hip pain and that he has done bilateral intra-articular hip injections and they did provide significant improvement. Patient does state today that her low back and right leg pain is causing the majority of her symptoms currently. Patient denies any prior imaging. Patient states she has tried [id number] Tylenol and ibuprofen along with heat and ice and topicals with minimal relief. She does state that she is currently managed with tizanidine 4 mg 3 times a day, gabapentin 300 mg 3 times daily and Tylenol. She states this combination does seem to help somewhat with her pain symptoms. Patient states she has had physical therapy in the past however it caused significant worsening of her pain. Patient denies any prior back surgery. Patient is a diabetic and states that she has to be cautious with steroid use. Patient does state that one of her current medications prohibits her from taking any NSAIDs. She does state that her daughter is currently on bedrest for and show she is trying to take care of her grandchild who has cerebral palsy. Her Noble has been reviewed and is appropriate. [id number] CC: Merry Hilton APRN [facility] Disclaimer: The information contained in this section may have been updated after the patient was seen, as this information can be updated by other users. Medical History (Updated 03/04/23 @ 13:28 by Merry Hilton APRN) Allergies Anxiety Arthritis Bronchitis Depression Diabetes Fibromyalgia History of anemia History of COVID-19 History of gastroesophageal reflux (GERD) History of stroke Hives Hypertension Hypothyroid IBS (irritable bowel syndrome) Kidney stone Migraine Migraines Pneumonia Urinary tract infection Surgical History (Updated 11/18/22 @ 09:43 by Madeline Jackson RN) History of section History of cholecystectomy History of D&C History of surgery History of tubal ligation Family History (Updated 11/18/22 @ 09:43 by Madeline Jackson RN) Other Cancer Family history of cardiac disorder Family history of depression Family history of diabetes mellitus Family history of liver disease Social History (Updated 11/18/22 @ 09:44 by Madeline Jackson RN) Smoking Status: Current every day smoker tobacco type: cigarettes packs per day: 1 second hand exposure: Yes alcohol intake: never substance use type: denies use current occupational status: employed Travel in the last 8 weeks: None household members: spouse housing: house Review of Systems Review of Systems Review of systems:: pertinent systems reviewed and negative unless documented below Review of systems (narrative): Review of Systems: General: No recent weight changes, no fever,
[2023-03-04 14:05] VITALS: BP 138/93; PULSE 125; RESP 20; O2SAT 94; BMI 44.4
== END ==
PROVIDERS: PCP Internal Medicine Adolescent Medicine; Visit Provider Nurse Practitioner Family
DX: M54.50 Low back pain, unspecified (principal); G89.29 Other chronic pain; M79.604 Pain in right leg; M54.2 Cervicalgia; M25.551 Pain in right hip; M25.552 Pain in left hip
CPT/HCPCS: 99202; G0463

== ENCOUNTER → 2023-04-29 11:01 | Outpatient (CLI) | payer OTHER, SELFPAY ==
--- NOTE | 2023-04-29 | MR_ITS ---
FINAL REPORT CLINICAL HISTORY: low back pain with radiculopathy. COMPARISON: None FINDINGS: Multiplanar MR imaging of the lumbar spine was performed without contrast. On the sagittal T2-weighted images, there is abnormal decreased signal at L2-3, L3-4, L4-5. The vertebrae are of normal height. The vertebral alignment is normal. L1-2: There is no significant canal stenosis or neural foraminal narrowing. L2-3: There is no significant canal stenosis or neural foraminal narrowing. L3-4: There is no significant canal stenosis or neural foraminal narrowing. L4-5: Mild diffuse disc bulge. Mild bilateral facet hypertrophy. Mild bilateral neuroforaminal narrowing. L5-S1: There is no significant canal stenosis or neural foraminal narrowing. IMPRESSION: Disc bulge at L4-5 with mild bilateral neuroforaminal narrowing. Reviewed, Interpreted and Dictated by Modesto Lou MD Transcribed by Caitlin Luke Authenticated and [facility]
--- NOTE | 2023-04-29 12:26 | XR_ITS ---
FINAL REPORT CLINICAL HISTORY: Neck and low back pain COMPARISON: None FINDINGS: CERVICAL SPINE 2 views of the cervical spine were obtained. There is no evidence of fracture or dislocation. Vertebrae are normal in height and alignment. There is moderate anterior osteophyte formation at C5-6. LUMBOSACRAL SPINE 3 views of the lumbar spine were obtained. There is no evidence of fracture or dislocation. The vertebral alignment is normal. There is moderate anterior osteophyte formation at L3-4. There are mild hypertrophic changes in the lower thoracic spine. No paraspinous soft tissue abnormalities identified. IMPRESSION: Degenerative changes without acute bony abnormality. Reviewed, Interpreted and Dictated by Modesto Lou MD Transcribed by Caitlin Luke Authenticated and [facility]
[2023-04-29 12:33] LABS: Basophils # 0.1 K/mm3 (0-0.2); Basophils % 0.9 % (0.1-2.0); Eosinophils # 0.4 K/mm3 (0.0-0.4); Eosinophils % 4.7 % (0.1-12.0); Hematocrit 49.1 % (37.0-47.0); Hemoglobin 16.4 g/dL (12.2-16.2); Lymphocytes # 1.7 K/mm3 (0.7-4.5); Lymphocytes % 22.3 % (10-50); Mean Corpuscular HGB Conc 33.3 g/dL (31.8-35.4); Mean Corpuscular Hemoglobin 28.7 pg (27.0-31.2); Mean Platelet Volume 9.5 fl (7.4-10.4); Monocytes # 0.6 K/mm3 (0.1-1.0); Monocytes % 7.7 % (1.7-9.3); Neutrophils # 4.8 K/mm3 (1.8-7.8); Neutrophils % 64.4 % (37.0-80.0); Platelet Count 271 K/mm3 (142-424); Red Blood Count 5.71 M/mm3 (4.20-5.40); Red Cell Distribution Width 14.1 % (11.5-17.5); White Blood Count 7.5 K/mm3 (4.8-10.8)
[2023-04-29 13:45] LABS: Alanine Aminotransferase 28 U/L (12-78); Albumin Level 4.1 g/dl (3.5-5.0); Albumin/Globulin Ratio 1.3 (1.1-1.8); Alkaline Phosphatase 95 U/L (38-126); Anion Gap 12.8 mEq/L (5-15); Aspartate Amino Transferase 35 U/L (14-36); Bilirubin,Total 0.5 mg/dl (0.2-1.3); Blood Urea Nitrogen 23 mg/dl (7-17); Calcium 9.1 mg/dl (8.4-10.2); Carbon Dioxide 24 mmol/L (22.0-30.0); Chloride 102 mmol/L (98-107); Estimated Glomerular Filt Rate 59 ml/min (>60); GFR (African American) 71 ML/MIN (>60); Globulin 3.2 g/dL (1.3-3.2); Glucose 191 mg/dl (74-100); Potassium 4.8 mmoL/L (3.5-5.1); Sodium 134 mmol/L (136-145); Total Protein,Serum 7.3 g/dl (6.3-8.2)
[2023-04-29 14:16] LABS: Thyroid Stimulating Hormone < 0.02 uIU/mL (0.465-4.68)
[2023-04-29 15:28] LABS: Hemoglobin A1C 6.8 % (4.0-6.0)
[2023-04-29 16:42] LABS: Amphetamine/Metha Screen,Urine Negative ng/ml (<1000)
[2023-04-29 16:43] LABS: Cannabinoid Screen,Urine Negative ng/ml (<50)
[2023-04-29 16:44] LABS: Barbiturates Screen,Urine Negative ng/ml (<200)
[2023-04-29 16:45] LABS: Benzodiazepines Screen,Urine Positive ng/ml (<200); Opiate Screen,Urine Negative ng/ml (<300)
[2023-04-29 16:46] LABS: Cocaine Screen,Urine Negative ng/ml (<300)
[2023-04-29 16:47] LABS: Methadone Screen,Urine Negative ng/ml (<300); Phencyclidine Screen,Urine Negative ng/ml (<25)
[2023-04-29 17:45] LABS: Vitamin B12 784 pg/mL (239-931)
[2023-04-29 17:50] LABS: Folate 8.32 ng/mL
== END ==
PROVIDERS: Nurse Practitioner Family; PCP Internal Medicine Adolescent Medicine; Visit Provider Nurse Practitioner Family
DX: G43.719 Chronic migraine without aura, intractable, without status migrainosus (principal); E11.9 Type 2 diabetes mellitus without complications; G44.86 Cervicogenic headache; Q67.0 Congenital facial asymmetry; R45.1 Restlessness and agitation; E66.9 Obesity, unspecified; Z68.42 Body mass index [BMI] 45.0-49.9, adult; Z86.69 Personal history of other diseases of the nervous system and sense organs; Z79.84 Long term (current) use of oral hypoglycemic drugs
CPT/HCPCS: 36415; 72084; 72148; 76376; 80053; 80305; 82607; 82746; 83036; 84443; 85025

== ENCOUNTER 2023-07-07 08:16 | Emergency (ER) | payer OTHER, SELFPAY ==
[2023-07-07] VITALS (9 sets, daily range): BP systolic 100–147; BP diastolic 52–96; PULSE 81–102; RESP 15–20; TEMP 36.6–36.7; O2SAT 89–100; BMI 45.4
[2023-07-07 08:49] LABS: Basophils % 0.3 % (0.1-2.0); Eosinophils # 0.3 K/mm3 (0.0-0.4); Eosinophils % 2.3 % (0.1-12.0); Hematocrit 50.4 % (37.0-47.0); Hemoglobin 16.5 g/dL (12.2-16.2); Lymphocytes # 1.9 K/mm3 (0.7-4.5); Lymphocytes % 14.3 % (10-50); Mean Corpuscular HGB Conc 32.8 g/dL (31.8-35.4); Mean Corpuscular Hemoglobin 28.9 pg (27.0-31.2); Mean Corpuscular Volume 88.3 fl (81-99); Mean Platelet Volume 8.5 fl (7.4-10.4); Monocytes # 0.7 K/mm3 (0.1-1.0); Monocytes % 5.2 % (1.7-9.3); Neutrophils # 10.3 K/mm3 (1.8-7.8); Neutrophils % 77.8 % (37.0-80.0); Platelet Count 399 K/mm3 (142-424); Red Blood Count 5.71 M/mm3 (4.20-5.40); Red Cell Distribution Width 14.7 % (11.5-17.5); White Blood Count 13.2 K/mm3 (4.8-10.8)
--- NOTE | 2023-07-07 08:52 | ED_ITS ---
Discharge Plan Disposition Patient Disposition: Home, Self-Care Prescriptions Prescriptions: New ondansetron 4 mg tablet,disintegrating 4 mg PO Q6H PRN (Reason: nausea and vomiting) Qty: 10 0RF No Action buspirone 10 mg tablet PO tizanidine 4 mg tablet PO levothyroxine 100 mcg tablet PO duloxetine 30 mg capsule,delayed release(DR/EC) PO Patient Comments: TAKE 1 CAPSULE BY MOUTH ONCE DAILY WITH 60MG DOSE Ajovy Autoinjector 225 mg/1.5 mL auto-injector 225 mg SQ QMONTH Qty: 1.5 5RF Rx Instructions: First injection to be given in office with nurse Ubrelvy 100 mg tablet 100 mg PO ONCE PRN (Reason: migraine ) Qty: 10 5RF Rx Instructions: Take 1 tablet immediately at first symptom of headache, may repeat 1 tablet after 2 hours if symptoms persist. Max dose 2 tablets in 24 hours. metformin 1,000 mg tablet 1,000 mg PO DAILY meloxicam 15 mg tablet 15 mg PO DAILY gabapentin 300 mg capsule 300 mg PO TID Farxiga 10 mg tablet 10 mg PO DAILY duloxetine 60 mg capsule,delayed release(DR/EC) 60 mg PO DAILY levothyroxine 300 mcg tablet 300 mcg PO DAILY promethazine 25 MG tablet 25 mg PO NEEDED PRN (Reason: Nausea And Vomiting) amitriptyline 50 mg tablet 25 mg PO DAILY propranolol 20 mg tablet 10 mg PO DAILY glimepiride 4 MG tablet 4 mg PO BID alprazolam 0.5 mg tablet 2 mg PO DAILY PRN (Reason: Anxiety) dulaglutide 0.75 MG/0.5 ML pen injector 0.75 mg SQ WEEKLY diphenhydramine HCl [Benadryl] 25 mg Capsule 25 mg PO HS PRN (Reason: hives) Referrals Follow up/Referrals: Conrad Bass MD [Primary Care Provider] - See instructions Activity Restrictions/Add. Instructions Additional Instructions/Restrictions: Call your family doctor to establish care for this visit to the emergency department and schedule follow-up within 48 hours to ensure improvement. If you have any worsening of your condition or any other concerning signs or symptoms, return to the emergency department or your primary care doctor for further evaluation. Devin sent to pharmacy Clinical Impressions Clinical Impression: Migraine, Vomiting Instructions Patient Instructions: DI for Diarrhea and Traveler's Diarrhea -- Adult, DI for Diarrhea and Traveler's Diarrhea -- Child, DI for Nausea -- Adult, DI for Nausea -- Child Discharge ED Provider: Kirk White General Adult [facility] General Chief complaint: Nausea/Vomiting/Diarrhea Stated complaint: vomiting, dizziness, headache Time Seen by Provider: 07/07/23 08:23 Mode of Arrival: Wheelchair Source of Information: Patient Limitations: No Limitations Description of Symptoms (Recalled from ER Triage Doc. by RN): Patient complaints of nausea and vomiting that started around 3 am. Reports 2 days ago she had severe neck pain and migraine. Headache has resolved but now feels dizziness and right side of her face is tingling which usually accompanies her migraine. Patient reports history of vertigo but states her dizziness feels different this time. History of Present Illness HPI narrative: 48-year-old female history of anxiety, depression, mild, restless leg syndrome, migraines, diabetes, cholecystectomy presenting with nausea and vomiting. Patient states that all of her symptoms started with a headache 2 days ago that feels like her typical migraine. Comprised of headache, neck pain on the right side. Also associated facial tingling which is normal for her. She took injectable abortive medication, this helped, migraine returned. She is now having similar symptoms again. Right-sided migraine that radiates down the right side of her neck. Photophobia, phonophobia. No fevers or chills. Patient states that shortly thereafter, she started developing nausea and vomiting is nonbloody, nonbilious. She does have 1 sick contact, her grandson, who was vomiting a couple days prior to this visit. His symptoms have since resolved. Related Data Home Medications Medication Instructions Recorded Confirmed promethazine 25 mg tablet 25 mg PO NEEDED PRN Nausea And 06/13/17 03/04/23 Vomiting glimepiride 4 mg tablet 4 mg PO BID Diabetes 06/30/17 03/04/23 dulaglutide 0.75 mg/0.5 mL 0.75 mg SQ WEEKLY Diabetes 11/11/18 03/04/23 subcutaneous pen injector alprazolam 0.5 mg tablet 2 mg PO DAILY PRN Anxiety 07/20/19 03/04/23 dapagliflozin propanediol 10 mg 10 mg PO DAILY Diabetes 10/01/22 03/04/23 tablet (Farxiga) duloxetine 60 mg capsule,delayed 60 mg PO DAILY Pain 10/01/22 03/04/23 release gabapentin 300 mg capsule 300 mg PO TID Pain 10/01/22 03/04/23 levothyroxine 300 mcg tablet 300 mcg PO DAILY thyroid 10/01/22 03/04/23 meloxicam 15 mg tablet 15 mg PO DAILY Pain 10/01/22 03/04/23 metformin 1,000 mg tablet 1,000 mg PO DAILY Diabetes 10/01/22 03/04/23 diphenhydramine HCl 25 mg capsule 25 mg PO HS PRN hives 10/14/22 03/04/23 (Benadryl) amitriptyline 50 mg tablet 25 mg PO DAILY . 11/18/22 03/04/23 propranolol 20 mg tablet 10 mg PO DAILY HEARTRATE 11/18/22 03/04/23 buspirone 10 mg tablet mg PO 03/15/23 03/15/23 duloxetine 30 mg capsule,delayed mg PO 03/15/23 03/15/23 release levothyroxine 100 mcg tablet mcg PO 03/15/23 03/15/23 tizanidine 4 mg tablet mg PO 03/15/23 03/15/23 Previous Rx's Medication Instructions Recorded fremanezumab-vfrm 225 mg/1.5 mL 225 mg (1.5 mL) SQ QMONTH #1.5 mL 03/15/23 subcutaneous auto-injector (Ajovy) ubrogepant 100 mg tablet (Ubrelvy) 100 mg PO ONCE PRN migraine 03/15/23 #10 tabs ondansetron 4 mg disintegrating 4 mg PO Q6H PRN nausea and 07/07/23 tablet vomiting #10 tabs Allergies Allergy/AdvReac Type Severity Reaction Status Date / Time sulfamethazine Allergy Mild I-HIVES Verified 03/15/23 15:05 [SULFAMETHAZINE] tramadol [TRAMADOL] Allergy Mild Verified 03/15/23 15:05 trimethoprim [TRIMETHOPRIM] Allergy Mild I-HIVES Verified 03/15/23 15:05 codeine [CODEINE] Allergy Unknown Verified 03/15/23 15:05 CEPHALOSPORINS Allergy Mild I-HIVES Uncoded 03/15/23 [facility] Disclaimer: The information contained in this section may have been updated after the patient was seen, as this information can be updated by other users. Medical History (Updated 07/07/23 @ 11:45 by Kirk White MD) Allergies Anxiety Arthritis Bronchitis Depression Diabetes Fibromyalgia History of anemia History of COVID-19 History of gastroesophageal reflux (GERD) History of stroke Hives Hypertension Hypothyroid IBS (irritable bowel syndrome) Kidney stone Migraine Migraines Pneumonia Urinary tract infection Surgical History History of section History of cholecystectomy History of D&C History of surgery History of tubal ligation Family History Other Cancer Family history of cardiac disorder Family history of depression Family history of diabetes mellitus Family history of liver disease Social History (Updated 03/04/23 @ 14:06 by Emily Ortiz RN) Smoking Status: Current every day smoker tobacco type: cigarettes packs per day: 1 second hand exposure: Yes alcohol intake: never substance use type: denies use current occupational status: employed Travel in the last 8 weeks: None household members: spouse housing: house ROS Obtained: Yes All systems reviewed & no additional complaints except as documented Physical Exam General General appearance: alert and in no apparent distress Head Head exam: atraumatic and normocephalic Eye Eye exam: Present normal appearance, PERRL and EOMI ENT ENT exam: Present mucous membranes moist Neck Neck exam: Present normal inspection, full ROM and trachea midline Respiratory Respiratory exam: Present normal lung sounds bilaterally; Absent respiratory distress, wheezes, stridor, accessory muscle use or prolonged expiratory phase Cardiovascular Cardiovascular exam: Present regular rate and normal rhythm Abdominal Exam Abdominal exam: Present soft; Absent distention, tenderness, guarding, rebound or rigidity Extremities Exam Extremities exam: Absent edema Neurological Exam Neurological exam: Present alert, oriented X3, CN II-XII intact and normal gait; Absent motor sensory deficit Skin Skin exam: Present warm and dry; Absent diaphoresis or erythema Medical Decision Making Medical Records Medical records reviewed: Yes I reviewed the patient's medical records. Noble Inquiry Pt receiving controlled substance: No Noble was queried for this patient: No Vital Signs: 07/07/23 08:16 07/07/23 08:30 07/07/23 09:00 Temperature 97.9 F Temperature Source Tympanic Pulse Rate 94 H 94 H Pulse Rate [Right] 97 H Respiratory Rate 20 20 20 Blood Pressure 129/96 H 131/85 Blood Pressure [Right Arm] 147/94 H Blood Pressure Mean 104 97 Blood Pressure Mean [Right Arm] 111 Blood Pressure Source [Right Arm] Automatic Cuff 02 Sat by Pulse Oximetry 99 99 96 Oxygen Delivery Method Room Air 07/07/23 09:30 07/07/23 10:00 07/07/23 10:30 Temperature Temperature Source Pulse Rate 81 89 101 H Pulse Rate [Right] Respiratory Rate 20 20 20 Blood Pressure 140/86 115/61 108/59 L Blood Pressure [Right Arm] Blood Pressure Mean 101 79 75 Blood Pressure Mean [Right Arm] Blood Pressure Source [Right Arm] 02 Sat by Pulse Oximetry 98 95 95 Oxygen Delivery Method 07/07/23 11:00 Temperature Temperature Source Pulse Rate 102 H Pulse Rate [Right] Respiratory Rate 18 Blood Pressure 100/52 L Blood Pressure [Right Arm] Blood Pressure Mean 74 Blood Pressure Mean [Right Arm] Blood Pressure Source [Right Arm] 02 Sat by Pulse Oximetry 90 L Oxygen Delivery Method Lab Data Lab Results 07/07/23 08:34: WBC 13.2 H, RBC 5.71 H, Hgb 16.5 H, Hct 50.4 H, MCV 88.3, MCH 28.9, MCHC 32.8, RDW 14.7, Plt Count 399, MPV 8.5, Neut % (Auto) 77.8, Lymph % (Auto) 14.3, Crane % (Auto) 5.2, Eos % (Auto) 2.3, Baso % (Auto) 0.3, Neut # (Auto) 10.3 H, Lymph # (Auto) 1.9, Crane # (Auto) 0.7, Eos # (Auto) 0.3, Baso # (Auto) 0.0, Sodium 133 L, Potassium 4.5, Chloride 101, Carbon Dioxide 26, Anion Gap 10.5, BUN 22 H, Creatinine 1.00, Estimated Creat Clear 58, Estimated GFR 59, Est GFR ( Amer) 71, Glucose 240 H, Calcium 9.5, Total Bilirubin 1.1, AST 34, ALT 22, Alkaline Phosphatase 118, Total Protein 8.1, Albumin 4.1, Globulin 4.0 H, Albumin/Globulin Ratio 1.0 L, Lipase 70, HCG, Quant < 2 07/07/23 08:34 07/07/23 08:34 Orders (Tests/Meds): ED MEDICATIONS Generic Name Dose Route Start Last Admin Trade Name Harshil PRN Reason Stop Dose Admin Sodium Chloride 10 ml 07/07/23 09:10 07/07/23 09:29 Sodium Chloride 0.9% 10ml Vial IV 08/06/23 09:09 10 ml NEEDED PRN Administration to Dilute Lorazepam inj Discontinued Medications Generic Name Dose Route Start Last Admin Trade Name Harshil PRN Reason Stop Dose Admin Acetaminophen 1,000 mg 07/07/23 09:32 07/07/23 10:19 Acetaminophen 1,000mg/100ml Vial IV 07/07/23 09:33 1,000 mg ONCE ONE Administration Diphenhydramine HCl 50 mg 07/07/23 09:10 07/07/23 09:28 Diphenhydramine 50mg/Ml Vial IV 07/07/23 09:11 50 mg ONCE ONE Administration Lactated Ringer's 1,000 mls @ 999 mls/hr 07/07/23 08:23 07/07/23 09:07 Lactated Ringer's 1000 Ml Bag IV 07/07/23 09:23 999 mls/hr .Q1H1M ONE Administration Sodium Chloride 500 mls @ 250 mls/hr 07/07/23 09:32 Sod Chlor 0.9% 1000ml Bag IV 07/07/23 11:31 .Q2H ONE Iopamidol 100 ml 07/07/23 09:57 07/07/23 09:58 Iopamidol-370 (76%);100ml Bottle IV 07/07/23 09:58 100 ml ONCE ONE Administration Ketorolac Tromethamine 15 mg 07/07/23 09:32 07/07/23 10:08 Ketorolac 30mg/Ml Vial IV 07/07/23 09:33 15 mg ONCE ONE Administration Lorazepam 2 mg 07/07/23 09:10 07/07/23 09:28 Lorazepam 2mg/Ml Vial IV 07/07/23 09:11 2 mg ONCE ONE Administration Ondansetron HCl 4 mg 07/07/23 08:23 07/07/23 09:08 Ondansetron 4mg/2ml Vial IV 07/07/23 08:24 4 mg ONCE ONE Administration Prochlorperazine Edisylate 10 mg 07/07/23 09:32 07/07/23 10:08 Prochlorperazine 10mg/2ml Vial IV 07/07/23 09:33 10 mg ONCE ONE Administration Sodium Chloride 50 ml 07/07/23 09:57 07/07/23 09:58 0.9 % Sodium Chloride 50 Ml Vial IV 07/07/23 09:58 50 ml ONCE ONE Administration Sodium Chloride 10 ml 07/07/23 09:57 07/07/23 09:58 Sodium Chloride 0.9% 10ml Syr (Rad Only) IV 07/07/23 09:58 10 ml ONCE ONE Administration ORDERS Category Date Time Status CT angio head Stat Cat Scan 07/07/23 08:[address] angio neck Stat Cat Scan 07/07/23 08:[address] head/brain wo con Stat Cat Scan 07/07/23 08:58 Taken CBC w/Auto Diff [Complete Blood Count Auto Diff] Stat Lab 07/07/23 08:34 Completed CMP [Comprehensive Metabolic Panel] Stat Lab 07/07/23 08:34 Completed HCG,Quantitative Stat Lab 07/07/23 08:34 Completed Lipase Stat Lab 07/07/23 08:34 Completed UA [Urinalysis and Microscopic] Stat Lab 07/07/23 08:23 Ordered Medical Decision Narrative: 48-year-old female history of anxiety, depression, mild, restless leg syndrome, migraines, diabetes, cholecystectomy presenting with nausea and vomiting. Patient states that all of her symptoms started with a headache 2 days ago that feels like her typical migraine. Comprised of headache, neck pain on the right side. Also associated facial tingling which is normal for her. She took injectable abortive medication, this helped, migraine returned. She is now having similar symptoms again. Right-sided migraine that radiates down the right side of her neck. Photophobia, phonophobia. No fevers or chills. Patient states that shortly thereafter, she started developing nausea and vomiting is nonbloody, nonbilious. She thinks this is secondary to vertigo, which she has also struggled with in the past. She states with any changes in position, she is becoming vertiginous. She does have 1 sick contact, her grandson, who was vomiting a couple days prior to this visit. His symptoms have since resolved. History was obtained via conversation with patient and significant other. On arrival, patient hemodynamically stable, alert, oriented x4, appropriate, GCS 15, moving all extremities spontaneously, pupils equal and reactive to light. Full physical exam performed and significant for well-appearing female no acute distress. Intermittently retching when rolling back to the room, not retching anymore on my exam. Abdomen soft, nontender, nondistended. Patient afebrile, hemodynamically stable, normotensive, nontachycardic. Neurologically intact. Differential includes migraine, tension headache, dissection, CVA, metabolic abnormality, peripheral vertigo, among others. Patient was given acetaminophen, Toradol, LR bolus, Zofran, Compazine, Benadryl for symptomatic management and correction of underlying abnormalities. It should be noted patient states she has contrast allergy, this is not true. She has panic attacs. Tolerated contrast with 50 of IV Benadryl and 1 mg IV Ativan without issue. workup independently interpreted and significant for mild leukocytosis 13.2, likely stress degranulation. Nonactionable chemistry. Hyperglycemia 240. Lipase negative, hCG negative. CTA of the head and neck without acute vascular abnormality. CT head without acute intracranial bleed or other abnormality. See radiology read for full review of final results. On reevaluation, patient sleeping comfortably and when woken up states that she no longer has any symptoms. Given patient presentation, workup, history, this most likely represents acute migraine in the setting of dehydration secondary to vomiting illness. Because patient at baseline without signs or symptoms of clinical decompensation, deemed appropriate for discharge. Results were relayed to patient who voiced understanding and were agreeable to outpatient management and follow up. At the time of discharge the patient was hemodynamically stable, tolerating PO, and mobilizing appropriately. Critical Care Critical Care Time Critical Care Time: No
--- NOTE | 2023-07-07 08:58 | CT_ITS ---
FINAL REPORT TECHNIQUE: Axial CT images were performed through the head. Coronal reformatted images were submitted. This study was performed with techniques to keep radiation doses as low as reasonably achievable (ALARA). Individualized dose reduction techniques using automated exposure control or adjustment of mA and/or kV according to the patient's size were employed. CLINICAL HISTORY: Right sided acte WITT and dizziness FINDINGS: The ventricles are normal in size. There is no evidence of hemorrhage. There is no mass or edema identified. There is no abnormal extra-axial fluid seen. The sinuses are well aerated. IMPRESSION: No acute intracranial process. Reviewed, Interpreted and Dictated by Modesto Lou MD Transcribed by Mayelin Eagle Authenticated and [facility]
--- NOTE | 2023-07-07 08:58 | CT_ITS ---
FINAL REPORT TECHNIQUE: NASCET technique utilized for stenosis evaluation. CLINICAL HISTORY: Right sided acte WITT and dizziness FINDINGS: There is moderate mediastinal adenopathy. A right paratracheal lymph node measures up to 2.2 cm in greatest dimension. RIGHT CAROTID: No significant stenosis is seen of the cervical common or internal carotid artery. LEFT CAROTID: No significant stenosis seen of the cervical common or internal carotid artery. VERTEBRALS: The vertebrals are patent. No significant stenosis is present. IMPRESSION: No significant arterial abnormality. Mediastinal adenopathy. Dedicated chest CT is recommended for further evaluation. Reviewed, Interpreted and Dictated by Modesto Lou MD Transcribed by Mayelin Eagle Authenticated and [facility]
--- NOTE | 2023-07-07 08:58 | CT_ITS ---
FINAL REPORT TECHNIQUE: thin section axial CT with and without IV contrast supplemented with multiplanar 3-D reconstruction of the head. This study was performed with techniques to keep radiation doses as low as reasonably achievable, (ALARA)individualized dose reduction techniques using automated exposure control or adjustment of mA and/or kV according to the patient's size were employed. CLINICAL HISTORY: Right sided acte WITT and dizziness FINDINGS: HEAD CT: The ventricles are normal in size. There is no evidence of hemorrhage. No masses are identified. No extra-axial fluid is seen. The sinuses are normal. CTA: The cranial circulation is unremarkable. There is no significant stenosis, aneurysm or occlusion. IMPRESSION: No acute process. Reviewed, Interpreted and Dictated by Modesto Lou MD Transcribed by Mayelin Eagle Authenticated and [facility]
[2023-07-07 09:03] LABS: Chloride 101 mmol/L (98-107); Potassium 4.5 mmoL/L (3.5-5.1); Sodium 133 mmol/L (136-145)
[2023-07-07 09:05] LABS: Alanine Aminotransferase 22 U/L (12-78); Alkaline Phosphatase 118 U/L (38-126); Anion Gap 10.5 mEq/L (5-15); Aspartate Amino Transferase 34 U/L (14-36); Bilirubin,Total 1.1 mg/dl (0.2-1.3); Blood Urea Nitrogen 22 mg/dl (7-17); Carbon Dioxide 26 mmol/L (22.0-30.0); Creatinine Clearance Estimated 58 mL/min (50-200); Estimated Glomerular Filt Rate 59 ml/min (>60); GFR (African American) 71 ML/MIN (>60); Lipase 70 U/L (23-300)
[2023-07-07 09:06] LABS: Albumin Level 4.1 g/dl (3.5-5.0); Calcium 9.5 mg/dl (8.4-10.2); Glucose 240 mg/dl (74-100); Total Protein,Serum 8.1 g/dl (6.3-8.2)
[2023-07-07] MEDS: LACTATED RINGERS 1000ML 1,000 ML 999 ML IV (09:07)
[2023-07-07] MEDS: ONDANSETRON 4MG/2ML VIAL 4 MG IV (09:08)
[2023-07-07 09:23] LABS: HCG,Quantitative < 2 mIU/ml (0-5.42)
[2023-07-07] MEDS: LORazepam 2MG/ML VIAL 2 MG IV (09:28)
[2023-07-07] MEDS: diphenhydrAMINE 50MG/ML VIAL 50 MG IV (09:28)
[2023-07-07] MEDS: SODIUM CHLORIDE 0.9% 10ML VIAL 10 ML IV (09:29)
[2023-07-07] MEDS: SODIUM CHLORIDE 0.9% 10ML SYR (RAD ONLY) 10 ML IV (09:58)
[2023-07-07] MEDS: 0.9 % SODIUM CHLORIDE 50 ML VIAL IV (09:58)
[2023-07-07] MEDS: IOPAMIDOL-370 (76%);100ML BOTTLE 100 ML IV (09:58)
[2023-07-07] MEDS: KETOROLAC 30MG/ML VIAL 15 MG IV (10:08)
[2023-07-07] MEDS: PROCHLORPERAZINE 10MG/2ML VIAL 10 MG IV (10:08)
--- NOTE | 2023-07-07 10:10 | PC.NURSE ---
Rounded on Pt to see if they had any needs. Pt stated that she had no needs at this time.
[2023-07-07] MEDS: ACETAMINOPHEN 1,000MG/100ML VIAL 1000 MG IV (10:19)
== END 2023-07-07 12:25 | disposition home or self-care (01) ==
PROVIDERS: Emergency Provider Emergency Medicine; PCP Internal Medicine Adolescent Medicine
DX: G43.909 Migraine, unspecified, not intractable, without status migrainosus (principal); R11.2 Nausea with vomiting, unspecified; R42 Dizziness and giddiness; R20.2 Paresthesia of skin; D72.829 Elevated white blood cell count, unspecified; I10 Essential (primary) hypertension; E03.9 Hypothyroidism, unspecified; E11.9 Type 2 diabetes mellitus without complications; F17.210 Nicotine dependence, cigarettes, uncomplicated; Z86.73 Personal history of transient ischemic attack (TIA), and cerebral infarction without residual deficits
CPT/HCPCS: 70450; 70496; 70498; 80053; 83690; 84702; 85025; 96361; 96374; 96375; 99285; J0131; J2405; Q9967

== ENCOUNTER 2023-09-08 16:55 | Emergency (ER) | payer OTHER, SELFPAY ==
[2023-09-08 17:20] VITALS: BP 129/97; PULSE 124; RESP 18; TEMP 36.8; O2SAT 94; BMI 44.4
[2023-09-08 17:35] LABS: Color,Urine Orange (Yellow)
[2023-09-08 17:36] LABS: Apearance,Urine Cloudy (Clear); Bilirubin,Urine Negative (Negative); Blood, Urine 3+ (Negative); Glucose,Urine (UA) 1000 (Negative); Ketones,Urine Negative (Negative); PH,Urine 5.5 (5.0-8.5); Protein,Urine 3+ (Negative); Specific Gravity, Urine 1.015 (1.005-1.030); UTC Leukocyte Esterase,Urine Trace (Negative); UTC Nitrate,Urine Positive (Negative); Urobilinogen,Urine 1 EU/dl (0.2)
--- NOTE | 2023-09-08 17:45 | ED_ITS ---
Discharge Plan Disposition Patient Disposition: Home, Self-Care Condition: Good Prescriptions Prescriptions: New ciprofloxacin HCl [Cipro] 500 mg tablet 500 mg PO BID 7 Days Qty: 14 0RF ondansetron 4 mg Tablet,Disintegrating 4 mg PO Q8H PRN (Reason: Nausea) Qty: 12 0RF phenazopyridine [Pyridium] 200 mg tablet 200 mg PO Q8H 2 Days Qty: 6 0RF promethazine 25 mg tablet 25 mg PO TID PRN (Reason: nausea and vomiting) Qty: 20 0RF No Action buspirone 10 mg tablet 10 mg PO DAILY tizanidine 4 mg tablet PO duloxetine 30 mg capsule,delayed release(DR/EC) 30 mg PO DAILY Patient Comments: TAKE 1 CAPSULE BY MOUTH ONCE DAILY WITH 60MG DOSE Ajovy Autoinjector 225 mg/1.5 mL auto-injector 225 mg SQ QMONTH Qty: 1.5 5RF Rx Instructions: First injection to be given in office with nurse Ubrelvy 100 mg tablet 100 mg PO ONCE PRN (Reason: migraine ) Qty: 10 5RF Rx Instructions: Take 1 tablet immediately at first symptom of headache, may repeat 1 tablet after 2 hours if symptoms persist. Max dose 2 tablets in 24 hours. metformin 1,000 mg tablet 1,000 mg PO DAILY meloxicam 15 mg tablet 15 mg PO DAILY gabapentin 300 mg capsule 300 mg PO TID Farxiga 10 mg tablet 10 mg PO DAILY duloxetine 60 mg capsule,delayed release(DR/EC) 60 mg PO DAILY levothyroxine 300 mcg tablet 300 mcg PO DAILY promethazine 25 MG tablet 25 mg PO NEEDED PRN (Reason: Nausea And Vomiting) amitriptyline 50 mg tablet 25 mg PO DAILY propranolol 20 mg tablet 10 mg PO DAILY glimepiride 4 MG tablet 4 mg PO BID alprazolam 0.5 mg tablet 2 mg PO DAILY PRN (Reason: Anxiety) dulaglutide 0.75 MG/0.5 ML pen injector 0.75 mg SQ WEEKLY diphenhydramine HCl [Benadryl] 25 mg Capsule 25 mg PO HS PRN (Reason: hives) ondansetron 4 mg tablet,disintegrating 4 mg PO Q6H PRN (Reason: nausea and vomiting) Qty: 10 0RF meclizine 25 mg tablet See Rx Instructions .ROUTE .COMPLEX Patient Comments: TAKE 1 TABLET BY MOUTH THREE TIMES DAILY FOR 10 DAYS Rx Instructions: TAKE 1 TABLET BY MOUTH THREE TIMES DAILY FOR 10 DAYS Referrals Follow up/Referrals: Conrad Bass MD [Primary Care Provider] - See instructions Activity Restrictions/Add. Instructions Additional Instructions/Restrictions: Drink plenty of fluids. Take tylenol or ibuprofen for pain or fever. Take the medications as directed. Follow up with your regular doctor. GO TO THE ER FOR ANY WORSENING SYMPTOMS The pyridium will make your urine turn orange, this is an expected side effect. It will stain your clothes if it comes into contact with them. We will culture the urine. That will tell what bacteria is causing your infection and which antibiotics will treat it best. Sometimes the first antibiotic we prescribe turns out to not work against different bacteria. So, make sure you follow up within 3 days if you are not getting better. The promethazine will make you drowsy, so don't drive or operate heavy machinery after taking it. Clinical Impressions Clinical Impression: UTI (urinary tract infection) Qualifiers: Urinary tract infection type: site unspecified Hematuria presence: without hematuria Qualified Code(s): N39.0 - Urinary tract infection, site not specified Instructions Patient Instructions: Urinary Tract Infection, Urine Culture, DI for Urinary Tract Infection (UTI), Phenazopyridine Discharge ED Provider: Daren Valera [facility] General Stated complaint: poss UTI Mode of Arrival: Ambulatory Source of Information: Patient Limitations: No Limitations Time Seen by Provider: 09/08/23 17:45 Description of Symptoms (Recalled from Triage Doc. by RN): Pt's symptoms are vomiting, diarrhea, fever, and pelvic pressure. HEENT Symptoms (Recalled from RN notes): Yes Resp Symptoms (Recalled from RN notes): No Skin Symptoms (Recalled from RN notes): No MS Symptoms (Recalled from RN notes): No Functional Status (Recalled from RN notes): n/a History of Present Illness Provider Complaint: She states that for the past 5 days she has had dysuria and urinary frequency. She states that her symptoms have been getting worse. She has ran a low grade fever for the past 2 days. Related Data Home Medications Medication Instructions Recorded Confirmed promethazine 25 mg tablet 25 mg PO NEEDED PRN Nausea And 06/13/17 09/08/23 Vomiting glimepiride 4 mg tablet 4 mg PO BID Diabetes 06/30/17 09/08/23 dulaglutide 0.75 mg/0.5 mL 0.75 mg SQ WEEKLY Diabetes 11/11/18 09/08/23 subcutaneous pen injector alprazolam 0.5 mg tablet 2 mg PO DAILY PRN Anxiety 07/20/19 09/08/23 dapagliflozin propanediol 10 mg 10 mg PO DAILY Diabetes 10/01/22 09/08/23 tablet (Farxiga) duloxetine 60 mg capsule,delayed 60 mg PO DAILY Pain 10/01/22 09/08/23 release gabapentin 300 mg capsule 300 mg PO TID Pain 10/01/22 09/08/23 levothyroxine 300 mcg tablet 300 mcg PO DAILY thyroid 10/01/22 09/08/23 meloxicam 15 mg tablet 15 mg PO DAILY Pain 10/01/22 09/08/23 metformin 1,000 mg tablet 1,000 mg PO DAILY Diabetes 10/01/22 09/08/23 diphenhydramine HCl 25 mg capsule 25 mg PO HS PRN hives 10/14/22 09/08/23 (Benadryl) amitriptyline 50 mg tablet 25 mg PO DAILY . 11/18/22 03/04/23 propranolol 20 mg tablet 10 mg PO DAILY HEARTRATE 11/18/22 09/08/23 buspirone 10 mg tablet 10 mg PO DAILY 03/15/23 09/08/23 duloxetine 30 mg capsule,delayed 30 mg PO DAILY 03/15/23 03/15/23 release tizanidine 4 mg tablet mg PO 03/15/23 03/15/23 meclizine 25 mg tablet See Rx Instructions .Route .COMPLEX 09/08/23 09/08/23 Previous Rx's Medication Instructions Recorded fremanezumab-vfrm 225 mg/1.5 mL 225 mg (1.5 mL) SQ QMONTH #1.5 mL 03/15/23 subcutaneous auto-injector (Ajovy) ubrogepant 100 mg tablet (Ubrelvy) 100 mg PO ONCE PRN migraine 03/15/23 #10 tabs ondansetron 4 mg disintegrating 4 mg PO Q6H PRN nausea and 07/07/23 tablet vomiting #10 tabs ciprofloxacin HCl 500 mg tablet 500 mg PO BID 7 days #14 tabs 09/08/23 (Cipro) ondansetron 4 mg disintegrating 4 mg PO Q8H PRN Nausea #12 tabs 09/08/23 tablet phenazopyridine 200 mg tablet 200 mg PO Q8H 2 days #6 tabs 09/08/23 (Pyridium) promethazine 25 mg tablet 25 mg PO TID PRN nausea and 09/08/23 vomiting #20 tabs Allergies Allergy/AdvReac Type Severity Reaction Status Date / Time sulfamethazine Allergy Mild I-HIVES Verified 08/18/23 08:26 [SULFAMETHAZINE] tramadol [TRAMADOL] Allergy Mild Verified 08/18/23 08:26 trimethoprim [TRIMETHOPRIM] Allergy Mild I-HIVES Verified 08/18/23 08:26 codeine [CODEINE] Allergy Unknown Verified 08/18/23 08:26 CEPHALOSPORINS Allergy Mild I-HIVES Uncoded 03/15/23 15:05 Worker's Comp Is this a Worker's Comp case?: No [facility] Disclaimer: The information contained in this section may have been updated after the patient was seen, as this information can be updated by other users. Medical History Kidney stone Urinary tract infection Pneumonia History of COVID-19 Bronchitis History of stroke Migraine Arthritis Hives History of gastroesophageal reflux (GERD) Allergies Hypertension History of anemia Fibromyalgia Migraines IBS (irritable bowel syndrome) Depression Anxiety Hypothyroid Diabetes Last A1c 7.4% 11/30/2022 Surgical History History of surgery RIGHT HIP INJECTION History of cholecystectomy History of tubal ligation History of D&C History of section Family History Other Cancer Family history of cardiac disorder Family history of depression Family history of diabetes mellitus Family history of liver disease Social History Smoking Status: Current every day smoker tobacco type: cigarettes packs per day: 1 second hand exposure: Yes alcohol intake: never substance use type: denies use current occupational status: employed Travel in the last 8 weeks: None household members: spouse housing: house ROS Obtained: Yes All systems reviewed & no additional complaints except as documented Constitutional Constitutional: Reports system reviewed and no additional complaints, except as documented, Denies chills and Denies fever(s) Eyes Eyes: Denies eye discharge ENT Ears, Nose, Mouth, and Throat: Denies dysphagia, Denies sore throat and Denies throat swelling Cardiovascular Cardiovascular: Denies chest pain and Denies dyspnea Respiratory Respiratory: Denies chest congestion, Denies cough and Denies dyspnea Gastrointestinal Gastrointestingal: Denies abdominal pain, constipation, diarrhea, dysphagia, nausea or vomiting Genitourinary Female Genitourinary: Reports as per HPI, Reports dysuria, Reports urinary frequency, Denies urinary incontinence, Reports urinary hesitancy and Reports urinary urgency Musculoskeletal Musculoskeletal: Denies arthralgias and Reports back pain Integumentary/Breasts Skin/Breast: Denies rash Neurologic Neurologic: Denies paresthesias Allergic/Immunologic Allergic/Immunologic: Denies throat swelling Physical Exam General General appearance: alert and in no apparent distress Head Head exam: atraumatic and normocephalic Eye Eye exam: Present normal appearance, PERRL and EOMI ENT ENT exam: Present normal exam, mucous membranes moist, TM's normal bilaterally and normal external ear exam Neck Neck exam: Present normal inspection, full ROM and trachea midline; Absent tenderness, meningismus or lymphadenopathy Chest Chest inspection: Present normal inspection and symmetric chest wall rise; Absent tenderness Respiratory Respiratory exam: Present normal lung sounds bilaterally; Absent respiratory d istress, wheezes or stridor Cardiovascular Cardiovascular exam: Present regular rate, normal rhythm and normal heart sounds Abdominal Exam Abdominal exam: Present soft and normal bowel sounds; Absent distention, tenderness, guarding, rebound, rigidity, incision, psoas sign, obturator sign, heel tap sign, Sawyer's sign, Rovsing's sign or tenderness at McBurney's Point Extremities Exam Extremities exam: Present normal inspection, full ROM and normal capillary refill; Absent tenderness, edema, joint swelling, calf tenderness or cyanosis Back Exam Back exam: Present normal inspection and full ROM; Absent tenderness, CVA tenderness (R) or CVA tenderness (L) Neurological Exam Neurological exam: Present alert, oriented X3 and normal gait Psychiatric Psychiatric exam: Present normal affect and normal mood Skin Skin exam: Present warm, dry, intact and normal color Lymphatic Lymphatic Findings: no adenopathy Medical Decision Making Medical Records Medical records reviewed: No I reviewed the patient's medical records. [place] Inquiry Pt receiving controlled substance: No Vital Signs: 09/08/23 17:20 Temperature 98.2 F Temperature Source Oral Pulse Rate [Right Radial] 124 H Respiratory Rate 18 Blood Pressure [Right Arm] 129/97 H Blood Pressure Mean [Right Arm] 107 Blood Pressure Source [Right Arm] Automatic Cuff Blood Pressure Position [Right Arm] Sitting 02 Sat by Pulse Oximetry 94 L Oxygen Delivery Method Room Air Lab Data Lab results reviewed: Yes I reviewed the patient's lab results. Lab Results 09/08/23 17:34: Urine Color [place], Urine Appearance Cloudy, Urine pH 5.5, Ur Specific [place] 1.015, Urine Protein 3+, Urine Glucose (UA) 1000, Urine Ketones Negative, Urine Blood 3+, Urine Nitrate Positive A, Urine Bilirubin Negative, Urine Urobilinogen 1, Ur Leukocyte Esterase Trace Orders (Tests/Meds): ORDERS Category Date Time Status Urine Culture Stat Micro 09/08/23 17:34 Ordered
[2023-09-08 18:12] VITALS: BP 129/97; PULSE 124; RESP 18; TEMP 36.8; O2SAT 94
== END 2023-09-08 18:11 | disposition home or self-care (01) ==
PROVIDERS: Emergency Provider Nurse Practitioner Family; PCP Internal Medicine Adolescent Medicine
DX: N39.0 Urinary tract infection, site not specified (principal); B96.29 Other Escherichia coli [E. coli] as the cause of diseases classified elsewhere; R50.9 Fever, unspecified; F17.210 Nicotine dependence, cigarettes, uncomplicated; E11.9 Type 2 diabetes mellitus without complications; I10 Essential (primary) hypertension; E03.9 Hypothyroidism, unspecified; Z79.84 Long term (current) use of oral hypoglycemic drugs; Z79.85 Long-term (current) use of injectable non-insulin antidiabetic drugs
CPT/HCPCS: 81003; 87086; 99212; 99214; G0463

== ENCOUNTER 2024-10-14 09:31 | Inpatient (IN) | payer SELFPAY ==
[2024-10-14] VITALS (33 sets, daily range): BP systolic 96–169; BP diastolic 37–85; PULSE 94–135; RESP 14–38; TEMP 36.7–37.8; O2SAT 92–98; BMI 46.5
--- NOTE | 2024-10-14 09:54 | ECG_ITS ---
APPROVED REPORT Exam: Resting ECG HR:129 bpm ECG Measurements Heart Rate 129 AXES PA 141 P 37 QRSd 124 QRS -68 QT 340 T 67 QTc 416 Conclusion SINUS TACHYCARDIA RIGHT BUNDLE BRANCH BLOCK [120+ ms QRS DURATION, UPRIGHT V1, 40+ ms S IN I/aVL/V4/V5/V6] LEFT ANTERIOR FASCICULAR BLOCK [QRS AXIS <= -45, QR IN I, RS IN II] ABNORMAL ECG Electronically signed by : TOSHIA ESQUIVEL, 10/14/2024 12:30:15
--- NOTE | 2024-10-14 10:12 | XR_ITS ---
PROCEDURE INFORMATION: Exam: XR Chest Exam date and time: 10/14/2024 10:31 AM Age: 49 years old Clinical indication: Cough TECHNIQUE: Imaging protocol: Radiologic exam of the chest. Views: 1 view. COMPARISON: CR XR CHEST PORTABLE 06/23/2021 5:13 PM FINDINGS: Lungs: Mild elevation right hemidiaphragm unchanged. Visualized lung brower are aerated and clear for portable chest. Pleural spaces: Unremarkable. No pleural effusion. No pneumothorax. Heart/Mediastinum: Unremarkable. No cardiomegaly. Bones/joints: No acute bony abnormalities detected. IMPRESSION: Stable chest. No active disease.
[2024-10-14 10:21] LABS: Basophils # 0.1 K/mm3 (0-0.2); Basophils % 0.3 % (0.1-2.0); Hematocrit 41.6 % (37.0-47.0); Hemoglobin 14.7 g/dL (12.2-16.2); Immature Granulocytes # 0.43 10^3uL; Immature Granulocytes % 1.5 %; Lymphocytes # 0.6 K/mm3 (0.7-4.5); Mean Corpuscular HGB Conc 35.3 g/dL (31.8-35.4); Mean Corpuscular Hemoglobin 29.5 pg (27.0-31.2); Mean Corpuscular Volume 83.4 fl (81-99); Mean Platelet Volume 12.1 fl (7.4-10.4); Monocytes # 1.7 K/mm3 (0.1-1.0); Monocytes % 5.8 % (1.7-9.3); Neutrophils # 26.2 K/mm3 (1.8-7.8); Neutrophils % 90.4 % (37.0-80.0); Nucleated Red Blood Cells # 0 10^3/uL; Nucleated Red Blood Cells % 0 %; Platelet Count 237 K/mm3 (142-424); Red Blood Count 4.99 M/mm3 (4.20-5.40); Red Cell Distribution Width 12.7 % (11.5-17.5); Red Cell Distribution Width-SD 38.4 fL; White Blood Count 28.9 K/mm3 (4.8-10.8)
[2024-10-14 10:22] LABS: Coronavirus 19, PCR Not Detected (NotDetected); Influenza A, PCR Not Detected (NotDetected); Influenza B, PCR Not Detected (NotDetected)
[2024-10-14] MEDS: ONDANSETRON 4MG/2ML VIAL 4 MG IV ×2 (10:22→16:10)
[2024-10-14] MEDS: LACTATED RINGERS 1000ML 1,000 ML 999 ML IV (10:22)
[2024-10-14 10:23] LABS: Albumin Level 3.8 g/dl (3.5-5.0); Chloride 93 mmol/L (98-107); Sodium 127 mmol/L (136-145)
--- NOTE | 2024-10-14 10:23 | HMH.EDGENADL ---
Discharge Plan Disposition Chief Complaint: Nausea/Vomiting/Diarrhea Prescriptions Prescriptions: No Action buspirone 10 mg tablet 10 mg PO DAILY tizanidine 4 mg tablet PO duloxetine 30 mg capsule,delayed release(DR/EC) 30 mg PO DAILY Patient Comments: TAKE 1 CAPSULE BY MOUTH ONCE DAILY WITH 60MG DOSE Ajovy Autoinjector 225 mg/1.5 mL auto-injector 225 mg SQ QMONTH Qty: 1.5 5RF Rx Instructions: First injection to be given in office with nurse Ubrelvy 100 mg tablet 100 mg PO ONCE PRN (Reason: migraine ) Qty: 10 5RF Rx Instructions: Take 1 tablet immediately at first symptom of headache, may repeat 1 tablet after 2 hours if symptoms persist. Max dose 2 tablets in 24 hours. metformin 1,000 mg tablet 1,000 mg PO DAILY meloxicam 15 mg tablet 15 mg PO DAILY gabapentin 300 mg capsule 300 mg PO TID Farxiga 10 mg tablet 10 mg PO DAILY duloxetine 60 mg capsule,delayed release(DR/EC) 60 mg PO DAILY levothyroxine 300 mcg tablet 300 mcg PO DAILY promethazine 25 MG tablet 25 mg PO NEEDED PRN (Reason: Nausea And Vomiting) amitriptyline 50 mg tablet 25 mg PO DAILY propranolol 20 mg tablet 10 mg PO DAILY glimepiride 4 MG tablet 4 mg PO BID alprazolam 0.5 mg tablet 2 mg PO DAILY PRN (Reason: Anxiety) dulaglutide 0.75 MG/0.5 ML pen injector 0.75 mg SQ WEEKLY diphenhydramine HCl [Benadryl] 25 mg Capsule 25 mg PO HS PRN (Reason: hives) ondansetron 4 mg tablet,disintegrating 4 mg PO Q6H PRN (Reason: nausea and vomiting) Qty: 10 0RF meclizine 25 mg tablet See Rx Instructions .ROUTE .COMPLEX Patient Comments: TAKE 1 TABLET BY MOUTH THREE TIMES DAILY FOR 10 DAYS Rx Instructions: TAKE 1 TABLET BY MOUTH THREE TIMES DAILY FOR 10 DAYS ciprofloxacin HCl [Cipro] 500 mg tablet 500 mg PO BID 7 Days Qty: 14 0RF ondansetron 4 mg Tablet,Disintegrating 4 mg PO Q8H PRN (Reason: Nausea) Qty: 12 0RF phenazopyridine [Pyridium] 200 mg tablet 200 mg PO Q8H 2 Days Qty: 6 0RF promethazine 25 mg tablet 25 mg PO TID PRN (Reason: nausea and vomiting) Qty: 20 0RF Referrals Follow up/Referrals: Provider,Referral, MD [Primary Care Provider, Medical] - See instructions Instructions Patient Instructions: DI for Diarrhea and Traveler's Diarrhea -- Adult, DI for Diarrhea and Traveler's Diarrhea -- Child, DI for Nausea -- Adult, DI for Nausea -- Child Print Language Print Language: Sami Discharge ED Provider: Amor Melendez General Adult HPI General Chief complaint: Nausea/Vomiting/Diarrhea Stated complaint: vomiting, cant eat/drink, diarrhea, fever, dizzy Time Seen by Provider: 10/14/24 09:38 Mode of Arrival: Wheelchair Source of Information: Patient Description of Symptoms (Recalled from ER Triage Doc. by RN): Pt states she has been sick for 4 days with nausea, vomiting, diarrhea. Pt states she is too weak to care for herself and everything hurts. No family at bedside, family did transport her to hospital. Hx of DM, poc glucose 376. History of Present Illness HPI narrative: Patient is a 49-year-old female with past medical history of [id number] diabetes, fibromyalgia, irritable bowel syndrome who presents to the emergency department for evaluation of multiple complaints. Over the last 4 days she has had nausea, vomiting, diarrhea. Vomiting diarrhea are nonbloody. She has diffuse myalgias. She has been unable to tolerate her medications at home or p.o. intake causing her to come here for continued evaluation. No chest pain. There is an associated cough. No dysuria reported. She is complaining of muscle tension in her back that is radiating up into her head causing her to have a headache which she has had previously. Please note that above description of symptoms, in this electronic medical record under categorization of recalled from ER triage doctor by RN are reflective of an initial nursing assessment, however, is not reflective of my full history and physical exam that was personally taken and clarified. Consequentially, this preceding description of symptoms, which may include the patient's categorized chief complaint in the EMR, do not reflect my personal clinical impression, and the ultimate description of history of present illness and patient stated complaints should be deferred to this section of the note. Unless stated otherwise or congruent with this section of the note, additional signs, symptoms, or incongruence should be interpreted as inaccurate with my clinical impression. Related Data Home Medications ?Medication ?Instructions ?Recorded ?Confirmed promethazine 25 mg tablet 25 mg PO NEEDED PRN Nausea And 06/13/17 09/08/23 Vomiting glimepiride 4 mg tablet 4 mg PO BID Diabetes 06/30/17 09/08/23 dulaglutide 0.75 mg/0.5 mL 0.75 mg SQ WEEKLY Diabetes 11/11/18 09/08/23 subcutaneous pen injector alprazolam 0.5 mg tablet 2 mg PO DAILY PRN Anxiety 07/20/19 09/08/23 dapagliflozin propanediol 10 mg 10 mg PO DAILY Diabetes 10/01/22 09/08/23 tablet (Farxiga) duloxetine 60 mg capsule,delayed 60 mg PO DAILY Pain 10/01/22 09/08/23 release gabapentin 300 mg capsule 300 mg PO TID Pain 10/01/22 10/14/24 levothyroxine 300 mcg tablet 300 mcg PO DAILY thyroid 10/01/22 09/08/23 meloxicam 15 mg tablet 15 mg PO DAILY Pain 10/01/22 09/08/23 metformin 1,000 mg tablet 1,000 mg PO DAILY Diabetes 10/01/22 09/08/23 diphenhydramine HCl 25 mg capsule 25 mg PO HS PRN hives 10/14/22 09/08/23 (Benadryl) amitriptyline 50 mg tablet 25 mg PO DAILY . 11/18/22 03/04/23 propranolol 20 mg tablet 10 mg PO DAILY HEARTRATE 11/18/22 09/08/23 buspirone 10 mg tablet 10 mg PO DAILY 03/15/23 09/08/23 duloxetine 30 mg capsule,delayed 30 mg PO DAILY 03/15/23 03/15/23 release tizanidine 4 mg tablet mg PO 03/15/23 03/15/23 meclizine 25 mg tablet See Rx Instructions .Route .COMPLEX 09/08/23 09/08/23 Previous Rx's ?Medication ?Instructions ?Recorded fremanezumab-vfrm 225 mg/1.5 mL 225 mg (1.5 mL) SQ QMONTH #1.5 mL 03/15/23 subcutaneous auto-injector (Ajovy) ubrogepant 100 mg tablet (Ubrelvy) 100 mg PO ONCE PRN migraine 03/15/23 #10 tabs ondansetron 4 mg disintegrating 4 mg PO Q6H PRN nausea and 07/07/23 tablet vomiting #10 tabs ciprofloxacin HCl 500 mg tablet 500 mg PO BID 7 days #14 tabs 09/08/23 (Cipro) ondansetron 4 mg disintegrating 4 mg PO Q8H PRN Nausea #12 tabs 09/08/23 tablet phenazopyridine 200 mg tablet 200 mg PO Q8H 2 days #6 tabs 09/08/23 (Pyridium) promethazine 25 mg tablet 25 mg PO TID PRN nausea and 09/08/23 vomiting #20 tabs Allergies Allergy/AdvReac Type Severity Reaction Status Date / Time sulfamethazine Allergy Mild I-HIVES Verified 08/18/23 08:26 (SULFAMETHAZINE) tramadol (TRAMADOL) Allergy Mild Rash Verified 10/14/24 11:34 trimethoprim (TRIMETHOPRIM) Allergy Mild I-HIVES Verified 08/18/23 08:26 codeine (CODEINE) Allergy Unknown Other Verified 10/14/24 11:34 Iodinated Contrast Media Allergy Other Verified 10/14/24 11:34 CEPHALOSPORINS Allergy Mild I-HIVES Uncoded 03/15/23 15:05 PFSH PFSH Disclaimer: The information contained in this section may have been updated after the patient was seen, as this information can be updated by other users. Medical History Kidney stone Urinary tract infection Pneumonia History of COVID-19 Bronchitis History of stroke Migraine Arthritis Hives History of gastroesophageal reflux (GERD) Allergies Hypertension History of anemia Fibromyalgia Migraines IBS (irritable bowel syndrome) Depression Anxiety Hypothyroid Diabetes Last A1c 7.4% 11/30/2022 Surgical History History of surgery RIGHT HIP INJECTION History of cholecystectomy History of tubal ligation History of D&C History of section Family History Other Cancer Family history of cardiac disorder Family history of depression Family history of diabetes mellitus Family history of liver disease Social History (Updated 10/14/24 @ 11:39 by Caitlin Denny RN) Smoking Status: Current every day smoker tobacco type: cigarettes packs per day: 1 second hand exposure: Yes alcohol intake: never substance use type: denies use current occupational status: employed and unemployed Travel in the last 8 weeks?: None household members: spouse housing: house Have you lived/traveled outside [place] in past 30 days?: No Contact w/someone who lives/traveled outside [place] past 30 days?: No Exposure to someone with infectious disease in past 14 days?: No Do you have a fever (greater than 100.4 F or 38 C)?: Yes Have you tested positive for COVID-19?: No Exposed to someone with COVID-19 in past 14 days?: No Do you have a sore throat?: No Do you have a cough?: No Do you have any weakness?: No Do you have any diarrhea?: Yes Are you experiencing any unusual bleeding?: No Do you have any muscle aches/pain?: No Do you have any abdominal pain?: No Are you experiencing loss of taste or smell?: No Other Medical History Have you received the Flu Vaccine for this season: No Have you received the Pneumonia Vaccine: No ROS Obtained: Yes Systems reviewed as appropriate & no additional complaints except as documented Physical Exam General General appearance: alert and in no apparent distress Head Head exam: atraumatic and normocephalic Eye Eye exam: Present PERRL and EOMI ENT ENT exam: Present mucous membranes moist Neck Neck exam: Present normal inspection Chest Chest inspection: Present normal inspection and symmetric chest wall rise Respiratory Respiratory exam: Present normal lung sounds bilaterally; Absent respiratory distress, wheezes or stridor Cardiovascular Cardiovascular exam: Present normal rhythm, tachycardia and other (Slightly delayed capillary refill 3 seconds) Abdominal Exam Abdominal exam: Present soft; Absent tenderness, guarding or rebound Extremities Exam Extremities exam: Present normal inspection Neurological Exam Neurological exam: Present alert Psychiatric Psychiatric exam: Present normal affect Skin Skin exam: Present warm and dry Medical Decision Making Medical Records Screening: Per USPSTF and CDC recommendations, given the prevalence of disease in our region, it is our hospital?s policy to screen for HIV and viral Hepatitis for all patients aged 18 and over and those with ongoing risk factors. [place] Inquiry Pt receiving controlled substance: No Vital Signs: 10/14/24 09:44 10/14/24 10:00 10/14/24 10:00 Temperature 98.1 F Temperature Source Oral Pulse Rate 135 H 126 H Pulse Rate [Left] 112 H Respiratory Rate 18 20 18 Blood Pressure 108/68 L 112/66 Blood Pressure [Right Arm] 112/66 Blood Pressure Mean [Right Arm] 81 Blood Pressure Source [Right Arm] Automatic Cuff Blood Pressure Position [Right Arm] Sitting 02 Sat by Pulse Oximetry 95 97 94 L Oxygen Delivery Method Room Air Room Air Room Air 10/14/24 10:30 10/14/24 10:52 10/14/24 10:52 Temperature Temperature Source Pulse Rate 119 H 126 H 123 H Pulse Rate [Left] Respiratory Rate 18 Blood Pressure 115/58 L Blood Pressure [Right Arm] Blood Pressure Mean [Right Arm] Blood Pressure Source [Right Arm] Blood Pressure Position [Right Arm] 02 Sat by Pulse Oximetry 95 Oxygen Delivery Method 10/14/24 11:00 10/14/24 11:30 Temperature Temperature Source Pulse Rate 116 H 110 H Pulse Rate [Left] Respiratory Rate 26 H 29 H Blood Pressure 117/64 96/51 L Blood Pressure [Right Arm] Blood Pressure Mean [Right Arm] Blood Pressure Source [Right Arm] Blood Pressure Position [Right Arm] 02 Sat by Pulse Oximetry 92 L 93 L Oxygen Delivery Method Room Air Lab Data Lab Results 10/14/24 09:45: WBC 28.9 H*, RBC 4.99, Hgb 14.7, Hct 41.6, MCV 83.4, MCH 29.5, MCHC 35.3, RDW 12.7, Plt Count 237, MPV 12.1 H, Neut % (Auto) 90.4 H, Lymph % (Auto) 2.0 L, [place] % (Auto) 5.8, Eos % (Auto) 0.0 L, Baso % (Auto) 0.3, Neut # (Auto) 26.2 H, Lymph # (Auto) 0.6 L, [place] # (Auto) 1.7 H, Eos # (Auto) 0.0, Baso # (Auto) 0.1, Total Counted 100, Neutrophils % (Manual) 95 H, Lymphocytes % (Manual) 1 L, Monocytes % (Manual) 4, Platelet Estimate Normal, RBC Morphology Normal, Sodium 127 L, Potassium 3.4 L, Chloride 93 L, Carbon Dioxide 18 L, Anion Gap 19.4 H, BUN 30 H, Creatinine 2.20 H, Estimated Creat Clear 27, Estimated GFR 24 L, Est GFR ( Amer) 28 L, Glucose 391 H, Hemoglobin A1c 7.3 H, Calcium 9.0, Phosphorus 2.6, Magnesium 1.2 L, Total Bilirubin 1.8 H, AST 35, ALT 42, Alkaline Phosphatase 106, Total Creatine Kinase 38, Total Protein 7.2, Albumin 3.8, Globulin 3.4 H, Albumin/Globulin Ratio 1.1, Lipase 43, Acetone Level None detected, HIV Ag/Ab Combo Qual Negative 10/14/24 10:12: VBG pH 7.47 H, VBG pCO2 27.0 L, VBG pO2 50.5 H, VBG HCO3 19.3 L, VBG Total CO2 20.1 L, VBG O2 Saturation 88.9 H, VBG Base Excess -4.3 L, VBG Lactic Acid 7.5 H 10/14/24 10:18: SARS-CoV-2 (PCR) Not detected, Influenza A Untype (PCR) Not detected, Influenza Type B (PCR) Not detected 10/14/24 09:45 10/14/24 09:45 Orders (Tests/Meds): ED MEDICATIONS Generic Name Dose Route Start Last Admin Trade Name Freq PRN Reason Stop Dose Admin Lactated Ringer's 1,710 mls @ 855 mls/hr 10/14/24 10:28 10/14/24 10:59 Lactated Ringer's 1000 Ml Bag 30 ml/kg infuse over 2 hr (1710 ml) 10/14/24 12:27 855 mls/hr IV Administration .Q2H ONE Sodium Chloride 1,000 mls @ 150 mls/hr 10/14/24 12:45 Sod Chlor 0.9% 1000ml Bag IV 11/13/24 12:44 .Q6H40M GRETCHEN Vancomycin/PEG/NADA/Lysine/Water 1.75 gm in 350 mls @ 175 mls/hr 10/14/24 11:30 Vancomycin 1.75gm/350ml (Peg) Premix IV 10/14/24 13:29 ONCE ONE Piperacillin Sod/Tazobactam 100 mls @ 200 mls/hr 10/14/24 11:25 10/14/24 11:28 Sod 4.5 gm/ Sodium Chloride IV 10/14/24 11:54 200 mls/hr ONCE ONE Administration Discontinued Medications Generic Name Dose Route Start Last Admin Trade Name Freq PRN Reason Stop Dose Admin Acetaminophen 1,000 mg 10/14/24 10:35 10/14/24 11:01 Acetaminophen 1,000mg/100ml Vial IV 10/14/24 10:36 1,000 mg ONCE ONE Administration Diphenhydramine HCl 25 mg 10/14/24 10:35 10/14/24 11:01 Diphenhydramine 50mg/Ml Vial IV 10/14/24 10:36 25 mg ONCE ONE Administration Lactated Ringer's 1,000 mls @ 999 mls/hr 10/14/24 10:12 10/14/24 10:22 Lactated Ringer's 1000 Ml Bag IV 10/14/24 11:12 999 mls/hr .Q1H1M ONE Administration Magnesium Sulfate 2 gm in 50 mls @ 50 mls/hr 10/14/24 10:42 10/14/24 11:13 Magnesium Sulfate 2gm/50ml Premix IV 10/14/24 11:41 50 mls/hr ONCE ONE Administration Insulin Human Regular 5 unit 10/14/24 10:47 10/14/24 11:01 Insulin Human Regular 100 Units/Ml 10ml Vial IVP 10/14/24 10:48 5 unit ONCE ONE Administration Lidocaine HCl 5 ml 10/14/24 10:15 10/14/24 10:39 Lidocaine 2% 5ml Pf Vial IH 10/14/24 10:16 5 ml ONCE ONE Administration Miscellaneous 1 each 10/14/24 11:15 Vancomycin Consult Request NOTAPPLIC 11/13/24 11:14 CONSULT [facility]Y [facility] Ondansetron HCl 4 mg 10/14/24 10:12 10/14/24 10:22 Ondansetron 4mg/2ml Vial IV 10/14/24 10:13 4 mg ONCE ONE Administration Prochlorperazine Edisylate 2.5 mg 10/14/24 10:35 10/14/24 11:01 Prochlorperazine 10mg/2ml Vial IV 10/14/24 10:36 2.5 mg ONCE ONE Administration ORDERS Category Date Time Status CT abdomen pelvis wo con Stat Cat Scan 10/14/24 10:[address] chest wo con Stat Cat Scan 10/14/24 10:[address] head/brain wo con Stat Cat Scan 10/14/24 10:35 Completed XR chest portable Stat Exams 10/14/24 10:12 Completed Acetone, Serum (Rapid) Stat Lab 10/14/24 09:45 Completed BNP [NT Pro Brain Natriuretic Pep.] Stat Lab 10/14/24 09:45 Received BNP [NT Pro Brain Natriuretic Pep.] Stat Lab 10/14/24 11:31 Ordered CBC w/Auto Diff [Complete Blood Count Auto Diff] Stat Lab 10/14/24 09:45 Completed CK [Creatine Kinase] Stat Lab 10/14/24 09:45 Completed CMP [Comprehensive Metabolic Panel] Stat Lab 10/14/24 09:45 Completed Diarrhea 23 Panel, PCR Stat Lab 10/14/24 10:49 Ordered Free T4 (Free Thyroxine) Stat Lab 10/14/24 09:45 Received HIV Combo Stat Lab 10/14/24 09:45 Completed Hemoglobin A1C Stat Lab 10/14/24 09:45 Completed Hepatitis C Ab Qual. W/ RFX Stat Lab 10/14/24 09:45 Received Lipase Stat Lab 10/14/24 09:45 Completed MG [Magnesium] Stat Lab 10/14/24 09:45 Completed Phosphorous Stat Lab 10/14/24 09:45 Completed Rapid PCR Covid and Flu A/B Stat Lab 10/14/24 10:18 Completed TSH [Thyroid Stimulating Hormone] Stat Lab 10/14/24 09:45 Received UA [Urinalysis and Microscopic] Stat Lab 10/14/24 10:12 Ordered Blood Culture Stat Micro 10/14/24 11:11 Ordered VBG [Venous Blood Gas] Stat RT 10/14/24 10:12 Completed ECG Data Tracing #1: Independently interpreted by me rate is 129, rhythm is regular, axis is leftward deviated, no ST elevation in anatomical contiguous leads, bifascicular block with right bundle branch block, QTc 416 Medical Decision Narrative: In summary patient is a 49-year-old female with past medical history described above presents emergency department for evaluation of cough, vomiting, diarrhea, diffuse myalgias. Patient is hemodynamically stable and appearing unwell but not critically ill upon arrival, afebrile, sinus tachycardia ranging between 110 and 100 25 bpm. Given her medical history differential includes DKA, viral gastroenteritis with superimposed fibromyalgia flare, among others. Workup will be conducted with hematologic labs, VBG, two-view chest x-ray, urinalysis. Patient is clear to auscultation so pneumonia is less likely. Initial interventions include crystalloid bolus, Zofran. Will give lidocaine neb for symptomatic control of cough. Initial workup reviewed by me significant leukocytosis 28.9 no anemia, respiratory alkalosis with significant lactic acidosis, glucose 391 anion gap 19.4 with JODI. Given this fluids will be converted to sepsis bolus and CT imaging of the head, chest, abdomen will be obtained screening for secondary causes, contrasted scans will be deferred given that she is not focally tender, does not have chest pain and has allergic reaction IV contrast the risk of contrast at this point outweighs the benefit. Tissue reperfusion assessment performed after initiation of sepsis bolus fluids agree with ongoing resuscitation. Patient does not have ketones in her blood interestingly although has significant metabolic derangements so 5 units of IV push insulin will be administered to see if it starts improving her symptoms.. She has hypomagnesemia which will be repleted. Upon repeat evaluation patient is now febrile 100.7 degrees. Given this degree of metabolic derangement although a source cannot be particularly identified as of yet broad-spectrum antibiotics are appropriate with vancomycin and Zosyn which will be initiated. I do not have concern for meningitis given that she has recurrent headaches in the same location does not have signs of meningismus on exam is alert and oriented with a nonfocal neurologic exam. Noncontrasted CT scan informally visualized by me, no large intra-axial hemorrhage. Formal read of CT imaging shows no acute intracranial abnormality, CT chest decreased lung volumes with mild mediastinal adenopathy possibly reactive or inflammatory outpatient follow-up to ensure resolution recommended as well as right lung nodules measuring up to [address] imaging of the abdomen pelvis questionable early diarrheal state, mild nonspecific intraperitoneal fluid without collection identified. Upon repeat evaluation patient continues to be nontender in her abdomen pelvis further diagnostic imaging with contrast was considered but will be deferred at this point. Case discussed with hospital medicine regarding management and they will meet the patient in their service for continued evaluation at this time. Critical Care Critical Care Time Critical Care Time: Yes Attestation: On 10/14/24, the high probability of a clinically significant, sudden or life threatening deterioration of the following system(s) required my full and direct attention, intervention and personal management. The time I documented below is in addition to time spent performing reported procedures but includes the following listed in this critical care notation. Total Time Total Critical Care Time: 45
[2024-10-14 10:24] LABS: Potassium 3.4 mmoL/L (3.5-5.1)
[2024-10-14 10:26] LABS: VBG Base Excess -4.3 mmol/L (-2.4-2.3); VBG HCO3 19.3 mmol/L (23-30); VBG Oxygen Saturation 88.9 % (50-70); VBG PH 7.47 mmol/L (7.31-7.41); VBG PO2 50.5 mmol/L (28-40); VBG Total CO2 20.1 mmol/L (23-27)
[2024-10-14 10:26] LABS: Alanine Aminotransferase 42 U/L (12-78); Albumin/Globulin Ratio 1.1 (1.1-1.8); Alkaline Phosphatase 106 U/L (38-126); Anion Gap 19.4 mEq/L (5-15); Aspartate Amino Transferase 35 U/L (14-36); Bilirubin,Total 1.8 mg/dl (0.2-1.3); Blood Urea Nitrogen 30 mg/dl (7-17); Carbon Dioxide 18 mmol/L (22.0-30.0); Creatine Kinase 38 U/L (30-135); Creatinine Clearance Estimated 27 mL/min (50-200); Estimated Glomerular Filt Rate 24 ml/min (>60); GFR (African American) 28 ML/MIN (>60); Globulin 3.4 g/dL (1.3-3.2); Glucose 391 mg/dl (74-100); Lipase 43 U/L (23-300); Total Protein,Serum 7.2 g/dl (6.3-8.2)
[2024-10-14 10:27] LABS: Lactate Venous 7.5 mmol/L (0.4-2.0)
[2024-10-14 10:27] LABS: Magnesium 1.2 mg/dl (1.6-2.3)
--- NOTE | 2024-10-14 10:27 | PC.NURSE ---
aware of lactic of 7.49
[2024-10-14 10:28] LABS: MANUAL DIFFERENTIAL MANUAL DIFFERENTIAL (MANUAL DIFF)
--- NOTE | 2024-10-14 10:35 | CT_ITS ---
PROCEDURE INFORMATION: Exam: CT Head Without Contrast Exam date and time: 10/14/2024 10:49 AM Age: 49 years old Clinical indication: Other: Headache dka TECHNIQUE: Imaging protocol: Computed tomography of the head without contrast. Radiation optimization: All CT scans at this facility use at least one of these dose optimization techniques: automated exposure control; mA and/or kV adjustment per patient size (includes targeted exams where dose is matched to clinical indication); or iterative reconstruction. COMPARISON: 1. CT ANGIO HEAD 07/07/2023 9:[address] HEAD/BRAIN WO CON 07/07/2023 9:49 AM FINDINGS: Brain: Normal. No hemorrhage. No mass effect or midline shift. Cortical sulci and white matter are unremarkable for age. Cerebral ventricles: Unremarkable for age. Paranasal sinuses: Visualized sinuses are unremarkable. No fluid levels. Mastoid air cells: Visualized mastoid air cells are well aerated. Bones: Hyperostosis frontalis interna redemonstrated. No acute fracture. Soft tissues: Unremarkable. IMPRESSION: No acute intracranial abnormality.
--- NOTE | 2024-10-14 10:35 | CT_ITS ---
PROCEDURE INFORMATION: Exam: CT Abdomen And Pelvis Without Contrast Exam date and time: 10/14/2024 10:54 AM Age: 49 years old Clinical indication: Other: Intractable vom dka wbc 30k nontender TECHNIQUE: Imaging protocol: Computed tomography of the abdomen and pelvis without contrast. Radiation optimization: All CT scans at this facility use at least one of these dose optimization techniques: automated exposure control; mA and/or kV adjustment per patient size (includes targeted exams where dose is matched to clinical indication); or iterative reconstruction. COMPARISON: CT - ABDPELWO CT abdomen pelvis wo con 11/11/2018 12:21 AM FINDINGS: Liver: Liver appears heterogeneous with irregular border. Possible hepatic parenchymal disease. Liver demonstrates diffuse moderate hypodensity. The liver is enlarged. Liver measurement: 18 cm in craniocaudal length. Gallbladder and biliary ducts: The gallbladder has been surgically removed. Surgical clips identified in the gallbladder fossa. No evidence for biliary dilatation. Pancreas: Unremarkable. Spleen: The spleen is enlarged. Spleen measurement: 15 cm craniocaudal length. Adrenal glands: Normal. No mass. Kidneys and ureters: The kidneys appear irregular with lobulated contours and areas of cortical thinning. Findings suggesting potential renal parenchymal disease. No visualized renal hydronephrosis. No visible renal calculi. Stomach and bowel: Slightly prominent fluid identified within the bowel, proximal colon, suggesting potential early developing diarrheal state. Possible nonspecific infectious or inflammatory gastroenteritis. Slightly prominent small bowel loops with air-fluid levels. Limited assessment of the colon without distension. Appendix: The visualized appendix appears unremarkable. Intraperitoneal space: Mild volume of intraperitoneal fluid identified in the bilateral abdomen and pelvis. No significant intraperitoneal well-defined fluid collection or air identified. Vasculature: Unremarkable. No abdominal aortic aneurysm. Lymph nodes: No enlarged lymph nodes. Urinary bladder: Unremarkable as visualized. Reproductive: Unremarkable as visualized. Bones/joints: Diffusely decreased bone density. Mild to moderate generalized bony degenerative changes. Bony structures appear otherwise unremarkable. Soft tissues: Mild diffuse generalized anasarca. Other findings: This study is severely limited by patient's large body habitus. Limited study with artifact created by extremities overlying the area of imaging. Refer to the recently performed chest imaging for chest findings. Limited study with motion artifact. IMPRESSION: 1. Questionable early developing diarrheal state, possible nonspecific infectious or inflammatory gastroenteritis. See above details. 2. Nonspecific heterogeneous and irregular appearance of the liver. Recommend correlation with liver function tests. Moderate hepatic steatosis. Hepatomegaly. 3. Splenomegaly. Possible portal venous hypertension. 4. Small volume free fluid within the abdomen pelvis. Mild generalized anasarca.
--- NOTE | 2024-10-14 10:35 | CT_ITS ---
PROCEDURE INFORMATION: Exam: CT Chest Without Contrast; Diagnostic Exam date and time: 10/14/2024 10:52 AM Age: 49 years old Clinical indication: Cough; Additional info: Cough dka TECHNIQUE: Imaging protocol: Diagnostic computed tomography of the chest without contrast. Radiation optimization: All CT scans at this facility use at least one of these dose optimization techniques: automated exposure control; mA and/or kV adjustment per patient size (includes targeted exams where dose is matched to clinical indication); or iterative reconstruction. COMPARISON: CR XR CHEST PORTABLE 10/14/2024 10:31 AM. Chest radiograph dated 06/23/2021. FINDINGS: Tubes, catheters and devices: None. Lungs: Lung volumes are decreased. Bilateral dependent pulmonary atelectasis is demonstrated within the lungs. Evidence for calcified lung granuloma in the left chest. Noncalcified nodules within the anterior right middle lobe measure up to 6 mm. No visualized lung mass. No lung consolidation identified. Pleural spaces: Unremarkable. No pneumothorax. No pleural effusion. Heart: The heart does not appear enlarged. No significant pericardial effusion. Coronary arteries: Within the limitations of the study, no definite coronary arterial calcifications are identified. Lymph nodes: Mediastinal lymph nodes measure up to 12 mm short axis diameter. These appear slightly enlarged. Vasculature: No pulmonary venous congestion is demonstrated within the lungs. Intraperitoneal space: Refer to the recently performed abdomen imaging for abdominal findings. Bones/joints: Mild to moderate degenerative disc disease in the spine. Bony structures appear otherwise unremarkable. Soft tissues: Unremarkable. Other findings: This study is severely limited by patient's large body habitus. Limited study with artifact created by extremities overlying the area of imaging. IMPRESSION: 1. Decreased lung volumes. Mild dependent pulmonary atelectasis. 2. Mild enlarged mediastinal lymphadenopathy. Possible reactive lymph nodes to infection or inflammatory process versus primary lymphoproliferative or metastatic malignancy. Recommend CT follow-up within 6 months. 3. Indeterminate right lung nodules measuring up to 6 mm. See Fleischner guideline recommendations below. For patients at low risk (minimal or absent history of smoking and of other known risk factors), recommend CT Chest at 3-6 months, then consider CT Chest at 18-24 months. For patients at high risk (history of smoking or of other known risk factors), recommend CT Chest at 3-6 months, then CT Chest at 18-24 months. (Reference: Junior) References: MacMahon H, et al. Guidelines for Management of Incidental Pulmonary Nodules Detected on CT Images: From the Fleischner Society 2017. Radiology. 2017;284(1):228-243.
[2024-10-14] MEDS: LIDOCAINE 2% 5ML PF VIAL 5 ML IH (10:39)
[2024-10-14 10:41] LABS: Acetone, Serum (Rapid) None Detected (None Detect)
[2024-10-14 10:54] LABS: Phosphorous 2.6 mg/dl (2.5-4.5)
--- NOTE | 2024-10-14 10:56 | PC.NURSE ---
pt gone to radiology
--- NOTE | 2024-10-14 10:57 | PC.NURSE ---
pt back from ct
[2024-10-14] MEDS: LACTATED RINGERS 1000ML 1,710 ML 855 ML IV (10:59)
[2024-10-14 11:01] LABS: Hemoglobin A1C 7.3 % (4.0-6.0)
[2024-10-14] MEDS: ACETAMINOPHEN 1,000MG/100ML VIAL 1000 MG IV (11:01)
[2024-10-14] MEDS: INSULIN HUMAN REGULAR 100 UNITS/ML 10ML VIAL 5 UNIT IVP (11:01)
[2024-10-14] MEDS: PROCHLORPERAZINE 10MG/2ML VIAL 2.5 MG IV (11:01)
[2024-10-14] MEDS: diphenhydrAMINE 50MG/ML VIAL 25 MG IV (11:01)
[2024-10-14 11:13] LABS: Lymphocytes % 1 % (10-50); Monocytes % 4 % (2-9); Neutrophils % 95 % (42-76); Platelet Estimate Normal; RBC Morphology Normal; Total Cells Counted 100
[2024-10-14] MEDS: MAGNESIUM SULFATE IN WATER 2 GM/50 ML PIGGYBACK IV ×2 (11:13→14:25)
[2024-10-14 11:25] LABS: HIV Combo NEGATIVE (Negative)
[2024-10-14] MEDS: PIPERACILLIN/TAZO 4.5 GM in 0.9 % SODIUM CHLORIDE 100 ML IV (11:28)
[2024-10-14 11:43] LABS: Hepatitis C Ab Qual. W/ RFX NEGATIVE (Negative)
--- NOTE | 2024-10-14 11:43 | EXP.HP ---
History of Present Illness *Admission Date: 10/14/24 *Reason for visit:: Intractable nausea and vomiting *History of present illness: Ms. Thomson is a 49-year-old morbidly obese female with diabetes, depression, fibromyalgia, depression, neuropathy who presented the ER with 4 to 5 days of nausea, vomiting, diarrhea. States she has been too weak to care for self. Hurts all over from vomiting so much. Has also been coughing. Denies sheba fever. No blood in vomit or stool. Has not been able to take her medications. Has not been taking them consistently prior to getting sick due to lack of PCP at this time. On arrival to the ER, patient meeting sepsis criteria with tachycardia, white count of 28,000, concern for UTI on urinalysis. Lab abnormalities include elevated anion gap at 19. Acute kidney injury with BUN 30, creatinine 2.3. Glucose elevated almost 400. Severe electrolyte disturbances and magnesium 1.2. Medicine was consulted for admission due to metabolic disturbances and sepsis. Admitted to stepdown unit. Requiring 2 L nasal cannula oxygen at time of admission. CT abdomen relatively unremarkable. Urine grossly abnormal with white cells, bacteria, leuk esterase positive. Initiated on broad-spectrum antibiotics With vancomycin and Zosyn. Currently receiving her third liter of IV fluids at a maintenance rate by the time of my evaluation. [facility] Disclaimer: The information contained in this section may have been updated after the patient was seen, as this information can be updated by other users. Medical History Sepsis Kidney stone Urinary tract infection Pneumonia History of COVID-19 Bronchitis History of stroke Migraine Arthritis Hives History of gastroesophageal reflux (GERD) Allergies Hypertension History of anemia Fibromyalgia Migraines IBS (irritable bowel syndrome) Depression Anxiety Hypothyroid Diabetes Surgical History History of surgery History of cholecystectomy History of tubal ligation History of D&C History of section Family History Other Cancer Family history of cardiac disorder Family history of depression Family history of diabetes mellitus Family history of liver disease Social History Smoking Status: Current every day smoker tobacco type: cigarettes packs per day: 1 second hand exposure: Yes alcohol intake: never substance use type: denies use current occupational status: employed and unemployed Travel in the last 8 weeks?: None household members: spouse housing: house Have you lived/traveled outside US in past 30 days?: No Contact w/someone who lives/traveled outside US past 30 days?: No Exposure to someone with infectious disease in past 14 days?: No Do you have a fever (greater than 100.4 F or 38 C)?: Yes Have you tested positive for COVID-19?: No Exposed to someone with COVID-19 in past 14 days?: No Do you have a sore throat?: No Do you have a cough?: No Do you have any weakness?: No Do you have any diarrhea?: Yes Are you experiencing any unusual bleeding?: No Do you have any muscle aches/pain?: No Do you have any abdominal pain?: No Are you experiencing loss of taste or smell?: No Other Medical History Have you received the Flu Vaccine for this season: No Have you received the Pneumonia Vaccine: No Review of Systems Review of Systems Review of systems (narrative): 14 point review of systems performed, pertinent positives and negatives as per HPI Meds Home Medications and Allergies Home Medications ?Medication ?Instructions ?Recorded ?Confirmed ?Type promethazine 25 mg tablet 25 mg PO NEEDED PRN Nausea And 06/13/17 09/08/23 History Vomiting glimepiride 4 mg tablet 4 mg PO BID Diabetes 06/30/17 09/08/23 History dulaglutide 0.75 mg/0.5 mL 0.75 mg SQ WEEKLY Diabetes 11/11/18 09/08/23 History subcutaneous pen injector alprazolam 0.5 mg tablet 2 mg PO DAILY PRN Anxiety 07/20/19 09/08/23 History dapagliflozin propanediol 10 mg 10 mg PO DAILY Diabetes 10/01/22 09/08/23 History tablet (Farxiga) duloxetine 60 mg capsule,delayed 60 mg PO DAILY Pain 10/01/22 09/08/23 History release gabapentin 300 mg capsule 300 mg PO TID Pain 10/01/22 10/14/24 History levothyroxine 300 mcg tablet 300 mcg PO AM thyroid 10/01/22 10/14/24 History meloxicam 15 mg tablet 15 mg PO DAILY Pain 10/01/22 09/08/23 History metformin 1,000 mg tablet 1,000 mg PO BID Diabetes 10/01/22 10/14/24 History diphenhydramine HCl 25 mg capsule 25 mg PO HS PRN hives 10/14/22 09/08/23 History (Benadryl) amitriptyline 50 mg tablet 25 mg PO DAILY . 11/18/22 03/04/23 History propranolol 20 mg tablet 20 mg PO BID HEARTRATE 11/18/22 10/14/24 History buspirone 10 mg tablet 10 mg PO DAILY 03/15/23 09/08/23 History duloxetine 30 mg capsule,delayed 30 mg PO DAILY 03/15/23 03/15/23 History release fremanezumab-vfrm 225 mg/1.5 mL 225 mg (1.5 mL) SQ QMONTH #1.5 mL 03/15/23 09/08/23 Rx subcutaneous auto-injector (Ajovy) tizanidine 4 mg tablet mg PO 03/15/23 03/15/23 History ubrogepant 100 mg tablet (Ubrelvy) 100 mg PO ONCE PRN migraine 03/15/23 09/08/23 Rx #10 tabs ondansetron 4 mg disintegrating 4 mg PO Q6H PRN nausea and 07/07/23 09/08/23 Rx tablet vomiting #10 tabs ciprofloxacin HCl 500 mg tablet 500 mg PO BID 7 days #14 tabs 09/08/23 Rx (Cipro) meclizine 25 mg tablet See Rx Instructions .Route .COMPLEX 09/08/23 09/08/23 History ondansetron 4 mg disintegrating 4 mg PO Q8H PRN Nausea #12 tabs 09/08/23 Rx tablet phenazopyridine 200 mg tablet 200 mg PO Q8H 2 days #6 tabs 09/08/23 Rx (Pyridium) promethazine 25 mg tablet 25 mg PO TID PRN nausea and 09/08/23 Rx vomiting #20 tabs levothyroxine 100 mcg tablet 100 mcg PO HS 10/14/24 10/14/24 History New Prescriptions to Start Prescriptions: Allergies Allergy/AdvReac Type Severity Reaction Status Date / Time sulfamethazine Allergy Mild I-HIVES Verified 08/18/23 08:26 (SULFAMETHAZINE) tramadol (TRAMADOL) Allergy Mild Rash Verified 10/14/24 11:34 trimethoprim (TRIMETHOPRIM) Allergy Mild I-HIVES Verified 08/18/23 08:26 codeine (CODEINE) Allergy Unknown Other Verified 10/14/24 11:34 Iodinated Contrast Media Allergy Other Verified 10/14/24 11:34 CEPHALOSPORINS Allergy Mild I-HIVES Uncoded 03/15/23 15:05 Exam Data for Last 24 hours Vital signs and Labs for Last 24 Hours: Temp Pulse Resp BP Pulse Ox O2 Del Method 98.1 F 110 H 29 H 96/51 L 93 L Room Air 10/14/24 10:00 10/14/24 11:30 10/14/24 11:30 10/14/24 11:30 10/14/24 11:30 10/14/24 11:00 Laboratory Results - last 24 hr 10/14/24 09:45: WBC 28.9 H*, RBC 4.99, Hgb 14.7, Hct 41.6, MCV 83.4, MCH 29.5, MCHC 35.3, RDW 12.7, Plt Count 237, MPV 12.1 H, Neut % (Auto) 90.4 H, Lymph % (Auto) 2.0 L, [place] % (Auto) 5.8, Eos % (Auto) 0.0 L, Baso % (Auto) 0.3, Neut # (Auto) 26.2 H, Lymph # (Auto) 0.6 L, [place] # (Auto) 1.7 H, Eos # (Auto) 0.0, Baso # (Auto) 0.1, Total Counted 100, Neutrophils % (Manual) 95 H, Lymphocytes % (Manual) 1 L, Monocytes % (Manual) 4, Platelet Estimate Normal, RBC Morphology Normal, Sodium 127 L, Potassium 3.4 L, Chloride 93 L, Carbon Dioxide 18 L, Anion Gap 19.4 H, BUN 30 H, Creatinine 2.20 H, Estimated Creat Clear 27, Estimated GFR 24 L, Est GFR ( Amer) 28 L, Glucose 391 H, Hemoglobin A1c 7.3 H, Calcium 9.0, Phosphorus 2.6, Magnesium 1.2 L, Total Bilirubin 1.8 H, AST 35, ALT 42, Alkaline Phosphatase 106, Total Creatine Kinase 38, Total Protein 7.2, Albumin 3.8, Globulin 3.4 H, Albumin/Globulin Ratio 1.1, Lipase 43, Acetone Level None detected, HIV Ag/Ab Combo Qual Negative 10/14/24 10:12: VBG pH 7.47 H, VBG pCO2 27.0 L, VBG pO2 50.5 H, VBG HCO3 19.3 L, VBG Total CO2 20.1 L, VBG O2 Saturation 88.9 H, VBG Base Excess -4.3 L, VBG Lactic Acid 7.5 H 10/14/24 10:18: SARS-CoV-2 (PCR) Not detected, Influenza A Untype (PCR) Not detected, Influenza Type B (PCR) Not detected I & O for Last 24 hours: Intake & Output 10/11/24 10/12/24 10/13/24 10/14/24 23:59 23:59 23:59 23:59 Weight 127.006 kg Constitutional Constitutional: moderate distress, morbidly obese, chronically ill appearing and cooperative *Routine HEENT Exam Head: Present normocephalic Eye: Present EOMI and PERRL ENT: Present mucous membranes moist Comments: Cheeks flushed *Routine Neck Exam Neck: Present supple; Absent lymphadenopathy *Routine Respiratory Exam Respiratory: Present prolonged expiratory phase, rhonchi and crackles; Absent wheezes *Routine Cardiovascular Exam Cardiovascular: Present tachycardia Comments: Regular rhythm *Routine Abdominal Exam Abdominal: Present soft, normoactive bowel sounds and tenderness (Left upper abdomen); Absent distended *Routine Rectal Exam Rectal:: deferred *Routine Genitalia Exam Genitalia:: deferred *Routine Extremities Exam Extremities: Absent cyanosis, clubbing or edema *Routine Skin Exam Skin: Present intact and warm; Absent rash *Routine Neurological Exam Neurological: Present alert, oriented X3 and moving all extremities; Absent altered mental status Assessment and Plan *Assessment and plan (1) Sepsis: Status: Acute Category: Medical Code(s): A41.9 - Sepsis, unspecified organism (2) Urinary tract infection: Status: Acute Category: Medical Code(s): N39.0 - Urinary tract infection, site not specified (3) DKA (diabetic ketoacidosis): Status: Acute Category: Medical Code(s): E11.10 - Type 2 diabetes mellitus with ketoacidosis without coma (4) JODI (acute kidney injury): Status: Acute Category: Medical Code(s): N17.9 - Acute kidney failure, unspecified (5) Diarrhea: Status: Acute Category: Medical Code(s): R19.7 - Diarrhea, unspecified (6) Vomiting: Status: Acute Category: Medical Code(s): R11.10 - Vomiting, unspecified (7) Obesity, morbid (more than 100 lbs over ideal weight or BMI > 40): Status: Acute Category: Medical Code(s): E66.01 - Morbid (severe) obesity due to excess calories (8) Hypothyroid: Status: Acute Category: Medical Code(s): E03.9 - Hypothyroidism, unspecified (9) Depression: Status: Acute Category: Medical Code(s): F32.A - Depression, unspecified (10) Diabetes: Status: Chronic Category: Medical Code(s): E11.9 - Type 2 diabetes mellitus without complications Plan 49-year-old female who presented with intractable nausea and vomiting. Concern for sepsis and DKA. Discussed case with ER physician, request admission for further management. Admitted for further care to the stepdown unit. Patient's prognosis guarded, cultures pending. Problems addressed as follows: Sepsis UTI - Elevated white count 28.9. Urine grossly abnormal with trace ketones, 3+ blood, 2+ leuk esterase, negative nitrate, white count too numerous to count, 4+ bacteria. Pantoja catheter placed in the ER. Urine culture pending. - Continue vancomycin and Zosyn for UTI/pyelonephritis/sepsis - CT of abdomen personally reviewed, concern for colitis. Kidneys appear normal with no stones or perinephric stranding. - Blood cultures pending - Repeat CBC, CMP, magnesium ordered for the morning - Tylenol 650 mg as needed every 4 hours for fever pain Intractable nausea and vomiting and diarrhea - Diarrhea panel pending - Zofran for nausea or vomiting 4 mg every 6 hours IV - Tums for heartburn DKA Anion gap metabolic acidosis Diabetes - Anion gap of 19. Ketones in urine. Glucose 391. With her symptomology, unsure if this is from infection or high anion gap metabolic acidosis. Will initiate sliding scale insulin with fingersticks ACHS. - Repeat CMP ordered for this afternoon. Monitor for gap closure. - A1c elevated at 7.3 - Not taking meds consistently at home per her report JODI: BUN 30, creatinine 2.3. Baseline 1.0. Monitor for improvement with fluid resuscitation. Strict monitoring of output with Pantoja. Consider removing tomorrow pending improvement in kidney function and urine output HypoThyroid: - TSH 16. Administer 100 mcg IV levothyroxine once due to poor p.o. intake and questionable tolerance with medication. - Resume levothyroxine 300 mcg daily Resume home Xanax 0.5 mg as needed twice daily for anxiety Resume Cymbalta 60 mg daily for pain and mood Resume gabapentin 300 mg 3 times a day for neuropathy Morbid obesity: complicates all aspects of care Full code Therapeutic Lovenox Diabetic diet
[2024-10-14 11:52] LABS: Microscopic, Urine URINE MICROSCOPIC (MICROSCOPIC)
[2024-10-14] MEDS: VANCOMYCIN/WATER FOR INJ (PEG) 1.75 GM/350 ML PIGGYBACK IV (11:54)
[2024-10-14 11:55] LABS: Appearance,Urine TURBID (Clear); Blood, Urine 3+ (Negative); Color,Urine YELLOW (Yellow); Glucose,Urine (UA) Negative (Negative); Ketones,Urine TRACE (Negative); Leukocyte Esterase,Urine 2+ (Negative); Nitrate,Urine Negative (Negative); PH,Urine 5.5 (5.0-8.5); Protein,Urine 3+ (Negative); Specific Gravity, Urine 1.025 (1.005-1.030)
[2024-10-14 11:55] LABS: NT Pro Brain Natriuretic Pep. 983 pg/mL (0-125)
[2024-10-14 12:01] LABS: Bacteria,Urine 4+ /lpf; Bilirubin,Urine 2+ (Negative); Squamous Epithelial Cell,Urine Occasional #/hpf (0-5); WBC,Urine TNTC #/hpf (0-3)
[2024-10-14] MEDS: 0.9 % SODIUM CHLORIDE 1000ML 1,000 ML 150 ML IV ×2 (12:14→20:08)
[2024-10-14] MEDS: ENOXAPARIN 100MG/ML SYRINGE 125 MG SUBCUT (12:14)
[2024-10-14 12:18] LABS: Free T4 (Free Thyroxine) 1.26 ng/dl (0.78-2.19)
--- NOTE | 2024-10-14 12:35 | PC.NURSE ---
report called to Karolina RODRIGUEZ #[id number]
--- NOTE | 2024-10-14 13:11 | EXP.PHA.CONS ---
Pharmacy Consult Date: 10/14/24 Time: 13:11 Referring provider: DR. WALLACE Reason for Consult:: VANCOMYCIN DOSING Allergies Allergy/AdvReac Type Severity Reaction Status Date / Time sulfamethazine Allergy Mild I-HIVES Verified 08/18/23 08:26 (SULFAMETHAZINE) tramadol (TRAMADOL) Allergy Mild Rash Verified 10/14/24 11:34 trimethoprim (TRIMETHOPRIM) Allergy Mild I-HIVES Verified 08/18/23 08:26 codeine (CODEINE) Allergy Unknown Other Verified 10/14/24 11:34 Iodinated Contrast Media Allergy Other Verified 10/14/24 11:34 CEPHALOSPORINS Allergy Mild I-HIVES Uncoded 03/15/23 15:05 Home Medications ?Medication ?Instructions ?Recorded ?Confirmed ?Type promethazine 25 mg tablet 25 mg PO NEEDED PRN Nausea And 06/13/17 09/08/23 History Vomiting glimepiride 4 mg tablet 4 mg PO BID Diabetes 06/30/17 09/08/23 History dulaglutide 0.75 mg/0.5 mL 0.75 mg SQ WEEKLY Diabetes 11/11/18 09/08/23 History subcutaneous pen injector alprazolam 0.5 mg tablet 2 mg PO DAILY PRN Anxiety 07/20/19 09/08/23 History dapagliflozin propanediol 10 mg 10 mg PO DAILY Diabetes 10/01/22 09/08/23 History tablet (Farxiga) duloxetine 60 mg capsule,delayed 60 mg PO DAILY Pain 10/01/22 09/08/23 History release gabapentin 300 mg capsule 300 mg PO TID Pain 10/01/22 10/14/24 History levothyroxine 300 mcg tablet 300 mcg PO AM thyroid 10/01/22 10/14/24 History meloxicam 15 mg tablet 15 mg PO DAILY Pain 10/01/22 09/08/23 History metformin 1,000 mg tablet 1,000 mg PO BID Diabetes 10/01/22 10/14/24 History diphenhydramine HCl 25 mg capsule 25 mg PO HS PRN hives 10/14/22 09/08/23 History (Benadryl) amitriptyline 50 mg tablet 25 mg PO DAILY . 11/18/22 03/04/23 History propranolol 20 mg tablet 20 mg PO BID HEARTRATE 11/18/22 10/14/24 History buspirone 10 mg tablet 10 mg PO DAILY 03/15/23 09/08/23 History duloxetine 30 mg capsule,delayed 30 mg PO DAILY 03/15/23 03/15/23 History release fremanezumab-vfrm 225 mg/1.5 mL 225 mg (1.5 mL) SQ QMONTH #1.5 mL 03/15/23 09/08/23 Rx subcutaneous auto-injector (Ajovy) tizanidine 4 mg tablet mg PO 03/15/23 03/15/23 History ubrogepant 100 mg tablet (Ubrelvy) 100 mg PO ONCE PRN migraine 03/15/23 09/08/23 Rx #10 tabs ondansetron 4 mg disintegrating 4 mg PO Q6H PRN nausea and 07/07/23 09/08/23 Rx tablet vomiting #10 tabs ciprofloxacin HCl 500 mg tablet 500 mg PO BID 7 days #14 tabs 09/08/23 Rx (Cipro) meclizine 25 mg tablet See Rx Instructions .Route .COMPLEX 09/08/23 09/08/23 History ondansetron 4 mg disintegrating 4 mg PO Q8H PRN Nausea #12 tabs 09/08/23 Rx tablet phenazopyridine 200 mg tablet 200 mg PO Q8H 2 days #6 tabs 09/08/23 Rx (Pyridium) promethazine 25 mg tablet 25 mg PO TID PRN nausea and 09/08/23 Rx vomiting #20 tabs New Prescriptions to Start Prescriptions: Height: 1.65 m Weight: 127.006 kg Laboratory Results:: Laboratory Results - last 24 hr 10/14/24 09:45: WBC 28.9 H*, RBC 4.99, Hgb 14.7, Hct 41.6, MCV 83.4, MCH 29.5, MCHC 35.3, RDW 12.7, Plt Count 237, MPV 12.1 H, Neut % (Auto) 90.4 H, Lymph % (Auto) 2.0 L, [place] % (Auto) 5.8, Eos % (Auto) 0.0 L, Baso % (Auto) 0.3, Neut # (Auto) 26.2 H, Lymph # (Auto) 0.6 L, [place] # (Auto) 1.7 H, Eos # (Auto) 0.0, Baso # (Auto) 0.1, Total Counted 100, Neutrophils % (Manual) 95 H, Lymphocytes % (Manual) 1 L, Monocytes % (Manual) 4, Platelet Estimate Normal, RBC Morphology Normal, Sodium 127 L, Potassium 3.4 L, Chloride 93 L, Carbon Dioxide 18 L, Anion Gap 19.4 H, BUN 30 H, Creatinine 2.20 H, Estimated Creat Clear 27, Estimated GFR 24 L, Est GFR ( Amer) 28 L, Glucose 391 H, Hemoglobin A1c 7.3 H, Calcium 9.0, Phosphorus 2.6, Magnesium 1.2 L, Total Bilirubin 1.8 H, AST 35, ALT 42, Alkaline Phosphatase 106, Total Creatine Kinase 38, NT-Pro-B Natriuret Pep 983 H, Total Protein 7.2, Albumin 3.8, Globulin 3.4 H, Albumin/Globulin Ratio 1.1, Lipase 43, TSH 16.80 H, Free T4 1.26, Acetone Level None detected, HCV Ab NARDA w/Rflx PCR Qn Negative, HIV Ag/Ab Combo Qual Negative 10/14/24 10:12: VBG pH 7.47 H, VBG pCO2 27.0 L, VBG pO2 50.5 H, VBG HCO3 19.3 L, VBG Total CO2 20.1 L, VBG O2 Saturation 88.9 H, VBG Base Excess -4.3 L, VBG Lactic Acid 7.5 H 10/14/24 10:18: SARS-CoV-2 (PCR) Not detected, Influenza A Untype (PCR) Not detected, Influenza Type B (PCR) Not detected 10/14/24 11:50: Urine Color Yellow, Urine Appearance Turbid, Urine pH 5.5, Ur Specific [place] 1.025, Urine Protein 3+ A, Urine Glucose (UA) Negative, Urine Ketones Trace, Urine Blood 3+ A, Urine Nitrate Negative, Urine Bilirubin 2+ A, Urine Urobilinogen 1.0, Ur Leukocyte Esterase 2+ A, Urine RBC 5-10, Urine WBC Tntc, Ur Squamous Epith Cells Occasional, Urine Bacteria 4+ Medical History: Medical History (Updated 10/14/24 @ 11:46 by Amor Melendez MD) Kidney stone Urinary tract infection Pneumonia History of COVID-19 Bronchitis History of stroke Migraine Arthritis Hives History of gastroesophageal reflux (GERD) Allergies Hypertension History of anemia Fibromyalgia Migraines IBS (irritable bowel syndrome) Depression Anxiety Hypothyroid Diabetes Assessment and Plan Assessment and plan all Dx Assessment and Plan for all problems:: Pharmacokinetic dosing service Objective: Patient: Floor: Age: 49 yo Serum creatinine: 2.2 mg/dL Height: 65.0 Inches Weight (kg): 127 Assessment: IBW (kg): 57.00 Dosing wt(kg): 127 Estimated Creatinine clearance (ml/min): 27.2 CRCL method: Cockcroft and Gault using ibw(default). Drug selected: Vancomycin Loading dose (mg): 0 Vd (liters): 108.0 (factor used: 0.85 L/kg) Tanvir (hr-1): 0.027 Half life (hrs): 25.67 Recommended dose: 1750 mg Interval: 24 hrs Infusion time (hrs): 2.0 Predicted peak (mcg/mL): 33.1 Predicted trough (mcg/mL): 18.27 Total body weight is being used for vancomycin dosing. Recommendations: Give Vancomycin 1750 mg q 24 hrs with an expected Cpeak of 33.1 mcg/ml and an expected Ctrough of 18.27 mcg/ml ----Vanco only - ignore for aminoglycosides----- CLvanco= 2.92 L/hr AUC 0-24 /PILI Data: PILI 0.5 mcg/mL: AUC/PILI: 1198.6 PILI 1.0 mcg/mL: AUC/PILI: 599.3 --------- PILI 1.5 mcg/mL: AUC/PILI: 399.5 PILI 2.0 mcg/mL: AUC/PILI: 299.7
[2024-10-14] MEDS: LEVOTHYROXINE SODIUM 100 MCG VIAL IV (13:34)
[2024-10-14 13:54] LABS: Adenovirus,PCR Not Detected (NotDetected); Bordetella Pertussis Not Detected (NotDetected); Chlamydophila Pneumoniae, PCR Not Detected (NotDetected); Coronavirus 19, PCR Not Detected (NotDetected); Coronavirus 229E Not Detected (NotDetected); Coronavirus NL63 Not Detected (NotDetected); Coronavirus OC43 Not Detected (NotDetected); Coronovirus HKU1,PCR Not Detected (NotDetected); Human Metapneumovirus Not Detected (NotDetected); Influenza A, PCR Not Detected (NotDetected); Influenza AH1, 2009 Not Detected (NotDetected); Influenza AH1, PCR Not Detected (NotDetected); Influenza AH3,PCR Not Detected (NotDetected); Influenza B, PCR Not Detected (NotDetected); Mycoplasma Pneumoniae, PCR Not Detected (NotDetected); Parainfluenza 1, PCR Not Detected (NotDetected); Parainfluenza 2, PCR Not Detected (NotDetected); Parainfluenza 3, PCR Not Detected (NotDetected); Parainfluenza 4, PCR Not Detected (NotDetected); Respiratory Syncytial Virus Not Detected (NotDetected); Rhinovirus/Enterovirus Not Detected (NotDetected)
[2024-10-14] MEDS: CALCIUM CARBONATE 500MG CHEWTAB 500 MG PO ×2 (14:07→20:17)
[2024-10-14] MEDS: POTASSIUM CHLORIDE 10 MEQ, LIDOCAINE HCL/PF 3 ML in 0.9 % SODIUM CHLORIDE 100 ML 108 MEQ IV ×3 (14:25→18:26)
[2024-10-14 14:26] LABS: Reflex Lactic Add Lactic Reflex
[2024-10-14] MEDS: ACETAMINOPHEN 325MG TAB 650 MG PO ×2 (14:38→20:08)
[2024-10-14 15:04] LABS: Lactic Acid Follow Up (RFLX 1) 1.2 mmol/L (0.7-2.1)
--- NOTE | 2024-10-14 15:51 | PC.NURSE ---
Pt is A&O x4. Face is flushed. She has c/o burning sensation to throat and chest. Has also c/o generalized discomfort. Lower abdominal discomfort. Has been able to tolerate some PO intake. F/C draining to bedside with dark yellow urine. 250 ml output. VSS. Call light within reach.
[2024-10-14] MEDS: MORPHINE 4MG/ML SYRINGE 4 MG IV ×2 (16:10→16:29)
[2024-10-14 16:24] LABS: POC Glucose,Bedside 238 (70-110)
[2024-10-14] MEDS: humaLOG 100 UNITS/ML 10ML VIAL (SSI) SUBCUT ×2 (16:37→20:08)
[2024-10-14] MEDS: PIPERACILLIN/TAZO 3.375 GM in 0.9 % SODIUM CHLORIDE 50 ML IV ×2 (16:43→22:49)
[2024-10-14 17:29] LABS: Chloride 94 mmol/L (98-107)
[2024-10-14 17:30] LABS: Potassium 3.4 mmoL/L (3.5-5.1); Sodium 127 mmol/L (136-145)
[2024-10-14 17:32] LABS: Blood Urea Nitrogen 34 mg/dl (7-17); Creatinine Clearance Estimated 29 mL/min (50-200); Estimated Glomerular Filt Rate 25 ml/min (>60); GFR (African American) 30 ML/MIN (>60)
[2024-10-14 17:33] LABS: Anion Gap 12.4 mEq/L (5-15); Calcium 8.3 mg/dl (8.4-10.2); Carbon Dioxide 24 mmol/L (22.0-30.0); Glucose 255 mg/dl (74-100)
[2024-10-14 19:23] LABS: POC Glucose,Bedside 211 (70-110)
[2024-10-14] MEDS: GABAPENTIN 300MG CAPSULE 300 MG PO (20:08)
--- NOTE | 2024-10-14 20:32 | PC.NURSE ---
called night time pharmacy about the potassium chloride order due to not having the correct dosage or mixture ordered. they advised to talk to night time hospitalist about changing the order
--- NOTE | 2024-10-14 20:35 | PC.NURSE ---
Called [place] night time hospitalist about the potassium order. he is going to look at pt and may change the order from iv to po.
--- NOTE | 2024-10-14 20:47 | PC.NURSE ---
[place] the hospitalist advised to pause the potassium order at this time. pts potassium level is 3.4.
[2024-10-15] VITALS (92 sets, daily range): BP systolic 76–149; BP diastolic 44–112; PULSE 59–117; RESP 14–35; TEMP 36.5–37.6; O2SAT 90–96; BMI 45.5
[2024-10-15 00:15] LABS: POC Glucose,Bedside 181 (70-110)
[2024-10-15] MEDS: ONDANSETRON 4MG/2ML VIAL 4 MG IV ×3 (02:41→15:57)
[2024-10-15] MEDS: MORPHINE 4MG/ML SYRINGE 4 MG IV (02:41)
[2024-10-15] MEDS: 0.9 % SODIUM CHLORIDE 1000ML 1,000 ML 150 ML IV ×2 (03:05→08:44)
[2024-10-15] MEDS: PIPERACILLIN/TAZO 3.375 GM in 0.9 % SODIUM CHLORIDE 50 ML IV ×4 (05:06→23:35)
[2024-10-15 05:41] LABS: POC Glucose,Bedside 213 (70-110)
[2024-10-15] MEDS: humaLOG 100 UNITS/ML 10ML VIAL (SSI) SUBCUT ×4 (06:18→20:06)
[2024-10-15 07:22] LABS: Albumin Level 2.3 g/dl (3.5-5.0); Chloride 101 mmol/L (98-107); Sodium 127 mmol/L (136-145)
[2024-10-15 07:23] LABS: Potassium 4.1 mmoL/L (3.5-5.1)
[2024-10-15 07:25] LABS: Alanine Aminotransferase 17 U/L (12-78); Albumin/Globulin Ratio 0.8 (1.1-1.8); Alkaline Phosphatase 67 U/L (38-126); Anion Gap 10.1 mEq/L (5-15); Aspartate Amino Transferase 35 U/L (14-36); Bilirubin,Total 1.3 mg/dl (0.2-1.3); Blood Urea Nitrogen 37 mg/dl (7-17); Carbon Dioxide 20 mmol/L (22.0-30.0); Creatinine Clearance Estimated 27 mL/min (50-200); Estimated Glomerular Filt Rate 25 ml/min (>60); GFR (African American) 30 ML/MIN (>60); Globulin 2.8 g/dL (1.3-3.2); Phosphorous 3.2 mg/dl (2.5-4.5); Total Protein,Serum 5.1 g/dl (6.3-8.2)
[2024-10-15 07:26] LABS: Calcium 7.1 mg/dl (8.4-10.2); Glucose 216 mg/dl (74-100)
[2024-10-15 07:29] LABS: Basophils # 0.1 K/mm3 (0-0.2); Basophils % 0.3 % (0.1-2.0); Eosinophils # 0.1 Kmm3 (0.0-0.4); Eosinophils % 0.4 % (0.1-12.0); Hematocrit 33.2 % (37.0-47.0); Immature Granulocytes # 0.12 10^3uL; Immature Granulocytes % 0.7 %; Lymphocytes # 0.5 K/mm3 (0.7-4.5); Lymphocytes % 2.8 % (10-50); Mean Corpuscular HGB Conc 34.6 g/dL (31.8-35.4); Mean Corpuscular Hemoglobin 29.9 pg (27.0-31.2); Mean Corpuscular Volume 86.5 fl (81-99); Mean Platelet Volume 12.7 fl (7.4-10.4); Monocytes % 5.7 % (1.7-9.3); Neutrophils # 15.9 K/mm3 (1.8-7.8); Neutrophils % 90.1 % (37.0-80.0); Nucleated Red Blood Cells # 0 10^3/uL; Nucleated Red Blood Cells % 0 %; Platelet Count 92 K/mm3 (142-424); Red Blood Count 3.84 M/mm3 (4.20-5.40); Red Cell Distribution Width-SD 41.1 fL; White Blood Count 17.6 K/mm3 (4.8-10.8)
[2024-10-15 07:32] LABS: MANUAL DIFFERENTIAL MANUAL DIFFERENTIAL (MANUAL DIFF)
[2024-10-15] MEDS: LEVOTHYROXINE 150MCG (0.15MG)TAB 300 MCG PO (08:08)
[2024-10-15] MEDS: DULOXETINE 30MG CAPSULE.DR 60 MG PO (08:44)
[2024-10-15] MEDS: GABAPENTIN 300MG CAPSULE 300 MG PO ×2 (08:45→20:06)
[2024-10-15] MEDS: ACETAMINOPHEN 325MG TAB 650 MG PO ×3 (08:53→20:05)
[2024-10-15] MEDS: TIZANIDINE 4MG TABLET 4 MG PO ×3 (09:26→22:42)
[2024-10-15 09:44] LABS: Lymphocytes % 1 % (10-50); Monocytes % 3 % (2-9); Neutrophils % 96 % (42-76); Platelet Estimate Moderate Decrease; RBC Morphology Normal; Total Cells Counted 100
[2024-10-15 09:45] LABS: Hemoglobin 11.5 g/dL (12.2-16.2)
[2024-10-15] MEDS: VANCOMYCIN/WATER FOR INJ (PEG) 1.75 GM/350 ML PIGGYBACK IV (10:55)
--- NOTE | 2024-10-15 12:35 | PC.NURSE ---
Patient assisted to chair. Patient complains of dizziness at this time. BP of 79/51, MAP of 56. Jovany notified. Dr. Manzo states reassess patients blood pressure in thirty minutes, if patients MAP is below 65 call me back. Continuation of care plan.
--- NOTE | 2024-10-15 15:01 | P.PN_ITS ---
Subjective *Date: 10/15/24 *Time: 15:01 Interval history: Patient with known fever overnight. Blood pressure soft but MAP still above 65. Blood cultures are returned positive for E. coli by PCR. No nausea or vomiting. Feeling somewhat better but still quite ill-appearing. Necessitating 1 L while sleeping. Medical Exam Vital signs and Labs for Last 24 Hours: Vital Signs Temp Pulse Pulse Resp BP Pulse Ox O2 Del Method 10/15/24 14:30 84 32 H 99/65 L 91 L Room Air 10/15/24 14:25 Room Air 10/15/24 14:20 86 24 117/73 91 L Room Air 10/15/24 14:15 88 27 H 92 L 10/15/24 14:10 87 18 99/67 L 93 L Room Air 10/15/24 14:00 96 H 23 118/54 L 94 L Room Air 10/15/24 13:50 29 H 111/78 10/15/24 13:45 18 10/15/24 13:40 16 101/75 L 10/15/24 13:30 117 H 23 89/55 L 93 L Room Air 10/15/24 13:20 83 23 90/58 L 94 L Room Air 10/15/24 13:16 93 L Room Air 10/15/24 13:15 81 32 H 94 L Room Air 10/15/24 13:10 91 H 27 H 106/70 L 93 L Room Air 10/15/24 13:04 84 24 95/60 L 95 Room Air 10/15/24 13:00 83 22 86/49 L 94 L Room Air 10/15/24 12:57 86 28 H 89/52 L 92 L Room Air 10/15/24 12:50 81 28 H 78/44 L 94 L Room Air 10/15/24 12:45 82 32 H 92 L Room Air 10/15/24 12:40 78 25 H 91/56 L 92 L Room Air 10/15/24 12:36 78 25 H 79/51 L 94 L Room Air 10/15/24 12:32 78 22 82/52 L 94 L Room Air 10/15/24 12:31 78 25 H 84/54 L 93 L Room Air 10/15/24 12:30 78 20 94 L Room Air 10/15/24 12:29 77 32 H 84/49 L 93 L Room Air 10/15/24 12:28 76/44 L 10/15/24 12:28 75 30 H 93 L Room Air 10/15/24 12:27 Room Air 10/15/24 12:15 83 14 92 L Room Air 10/15/24 12:00 98.9 F 75 34 H 95/54 L 92 L 10/15/24 11:56 81 10/15/24 11:45 77 28 H 90 L Room Air 10/15/24 11:30 79 22 91 L Room Air 10/15/24 11:15 81 30 H 94 L Room Air 10/15/24 11:00 85 17 102/68 L 95 Room Air 10/15/24 10:45 87 27 H 90 L Room Air 10/15/24 10:30 91 H 25 H 90 L Room Air 10/15/24 10:15 93 H 29 H 92 L Room Air 10/15/24 10:06 Room Air 10/15/24 10:00 96 H 20 119/73 93 L Room Air 10/15/24 09:45 97 H 28 H 92 L Room Air 10/15/24 09:30 98 H 25 H 94 L Room Air 10/15/24 09:15 99 H 19 95 Room Air 10/15/24 09:00 97 H 31 H 117/66 94 L Nasal Cannula 10/15/24 08:57 Nasal Cannula 10/15/24 08:45 96 H 30 H 95 Nasal Cannula 10/15/24 08:30 97 H 31 H 94 L Nasal Cannula 10/15/24 08:15 100 H 30 H 95 Nasal Cannula 10/15/24 08:00 103 H 10/15/24 08:00 98.7 F 102 H 28 H 149/80 H 94 L Nasal Cannula 10/15/24 07:45 100 H 28 H 95 Nasal Cannula 10/15/24 07:42 101 H 95 Nasal Cannula 10/15/24 07:30 98 H 29 H 95 Nasal Cannula 10/15/24 07:15 102 H 23 96 Nasal Cannula 10/15/24 07:00 91 H 23 122/77 91 L Nasal Cannula 10/15/24 06:55 Nasal Cannula 10/15/24 06:45 93 H 24 90 L Nasal Cannula 10/15/24 06:30 92 H 23 91 L Nasal Cannula 10/15/24 06:00 99 H 25 H 114/71 91 L Nasal Cannula 10/15/24 05:00 Nasal Cannula 10/15/24 04:00 102 H 10/15/24 04:00 98.1 F 102 H 33 H 134/72 93 L Nasal Cannula 10/15/24 03:00 Nasal Cannula 10/15/24 02:00 98 H 96 Nasal Cannula 10/15/24 02:00 94 H 26 H 99/61 L 95 Nasal Cannula 10/15/24 01:00 Nasal Cannula 10/15/24 00:00 96 H 10/15/24 00:00 97.7 F 97 H 30 H 103/56 L 95 Nasal Cannula 10/14/24 23:00 Nasal Cannula 10/14/24 22:00 104 H 34 H 98/37 L 93 L Nasal Cannula 10/14/24 21:00 Room Air 10/14/24 20:01 108 H 10/14/24 20:00 110 H 22 92 L Room Air 10/14/24 20:00 99.5 F 109 H 29 H 120/66 93 L Room Air 10/14/24 18:44 Room Air 10/14/24 18:15 114 H 38 H 93 L 10/14/24 18:00 99.5 F 113 H 34 H 107/68 L 96 Nasal Cannula 10/14/24 18:00 107/68 L 10/14/24 17:45 114 H 35 H 94 L 10/14/24 17:30 116 H 38 H 95 10/14/24 17:15 118 H 26 H 94 L 10/14/24 17:00 117/64 10/14/24 17:00 116 H 34 H 93 L 10/14/24 16:45 113 H 23 96 10/14/24 16:41 Nasal Cannula 10/14/24 16:30 115 H 37 H 96 10/14/24 16:15 120 H 29 H 98 10/14/24 16:00 99.7 F H 104 H 28 H 169/85 H 97 Nasal Cannula 10/14/24 16:00 169/85 H 10/14/24 15:45 95 H 32 H 96 10/14/24 15:30 96 H 33 H 96 10/14/24 15:15 94 H 30 H 96 O2 Flow Rate 10/15/24 14:30 10/15/24 14:25 10/15/24 14:20 10/15/24 14:15 10/15/24 14:10 10/15/24 14:00 10/15/24 13:50 10/15/24 13:45 10/15/24 13:40 10/15/24 13:30 10/15/24 13:20 10/15/24 13:16 10/15/24 13:15 10/15/24 13:10 10/15/24 13:04 10/15/24 13:00 10/15/24 12:57 10/15/24 12:50 10/15/24 12:45 10/15/24 12:40 10/15/24 12:36 10/15/24 12:32 10/15/24 12:31 10/15/24 12:30 10/15/24 12:29 10/15/24 12:28 10/15/24 12:28 10/15/24 12:27 10/15/24 12:15 10/15/24 12:00 2 10/15/24 11:56 10/15/24 11:45 10/15/24 11:30 10/15/24 11:15 10/15/24 11:00 10/15/24 10:45 10/15/24 10:30 10/15/24 10:15 10/15/24 10:06 10/15/24 10:00 10/15/24 09:45 10/15/24 09:30 10/15/24 09:15 10/15/24 09:00 10/15/24 08:57 10/15/24 08:45 10/15/24 08:30 10/15/24 08:15 10/15/24 08:00 10/15/24 08:00 10/15/24 07:45 10/15/24 07:42 10/15/24 07:30 10/15/24 07:15 10/15/24 07:00 10/15/24 06:55 10/15/24 06:45 10/15/24 06:30 10/15/24 06:00 10/15/24 05:00 10/15/24 04:00 10/15/24 04:00 10/15/24 03:00 10/15/24 02:00 10/15/24 02:00 10/15/24 01:00 10/15/24 00:00 10/15/24 00:00 10/14/24 23:00 10/14/24 22:00 10/14/24 21:00 10/14/24 20:01 10/14/24 20:00 10/14/24 20:00 10/14/24 18:44 10/14/24 18:15 10/14/24 18:00 10/14/24 18:00 10/14/24 17:45 10/14/24 17:30 10/14/24 17:15 10/14/24 17:00 10/14/24 17:00 10/14/24 16:45 10/14/24 16:41 1 10/14/24 16:30 10/14/24 16:15 10/14/24 16:00 10/14/24 16:00 10/14/24 15:45 10/14/24 15:30 10/14/24 15:15 Intake and Output 10/14/24 10/15/24 10/15/24 23:59 07:59 15:59 Intake Total 700 / 1850 1150 / 2785 1635 / 2785 Output Total 775 / 875 750 / 1250 500 / 1250 Balance -75 / 975 400 / 1535 1135 / 1535 Intake: Intake, Oral Amount 700 / 700 800 / 800 Intake, Total IV Amount 1150 / 1985 835 / 1985 0.9 % Sodium Chloride 1000ML 1, 1000 / 1835 835 / 1835 000 ml @ 150 mls/hr IV .Q6H40M G[facility]CH[facility] Rx#:[id number] Piperacillin/Tazo 3.375 gm In 0 50 / 50 .9 % Sodium Chloride 50 ml @ 100 mls/hr IV Q6 [facility] Rx#: [id number] Potassium Chloride 10 meq 100 / 100 Lidocaine HCl/Pf 3 ml In 0.9 % Sodium Chloride 100 ml @ 108 mls/hr IV Q1H [facility]CH[facility] Rx#:[id number] Output: Output, Urine Amount 775 / 875 600 / 600 Output, Urine Amount (Catheter) 150 / 650 500 / 650 Pantoja 150 / 650 500 / 650 Other: Number of Unmeasured Voids 0 0 Number of Bowel Movements 1 Weight 123.967 kg Patient Weight 06/01/25 23:59 Weight 123.967 kg Laboratory Results - last 24 hr 10/14/24 11:50: Urine Color Yellow, Urine Appearance Turbid, Urine pH 5.5, Ur Specific [place] 1.025, Urine Protein 3+ A, Urine Glucose (UA) Negative, Urine Ketones Trace, Urine Blood 3+ A, Urine Nitrate Negative, Urine Bilirubin 2+ A, Urine Urobilinogen 1.0, Ur Leukocyte Esterase 2+ A, Urine RBC 5-10, Urine WBC Tntc, Ur Squamous Epith Cells Occasional, Urine Bacteria 4+ 10/14/24 13:31: Chlamy pneumoniae PCR Not detected, Adenovirus (PCR) Not detected, B. pertussis DNA (PCR) Not detected, Coronavirus OC43 (PCR) Not detected, Coronavirus HKU1 (PCR) Not detected, Coronavirus 229E (PCR) Not detected, SARS-CoV-2 (PCR) Not detected, Coronavirus NL63 (PCR) Not detected, Human Metapneumovir PCR Not detected, Influenza A (H1) PCR Not detected, Influ A (H1N1/09) PCR Not detected, Influenza A (H3) PCR Not detected, Influenza Type A (PCR) Not detected, Influenza Type B (PCR) Not detected, M. pneumoniae (PCR) Not detected, Parainfluenza 1 (PCR) Not detected, Parainfluenza 2 (PCR) Not detected, Parainfluenza 3 (PCR) Not detected, Parainfluenza 4 (PCR) Not detected, RSV (PCR) Not detected, Entero/Rhino (PCR) Not detected 10/14/24 14:30: Lactate 1.2 10/14/24 16:16: POC Glucose 238 H 10/14/24 17:10: Sodium 127 L, Potassium 3.4 L, Chloride 94 L, Carbon Dioxide 24, Anion Gap 12.4, BUN 34 H, Creatinine 2.10 H, Estimated Creat Clear 29, Estimated GFR 25 L, Est GFR ( Amer) 30 L, Glucose 255 H D, Calcium 8.3 L 10/14/24 19:15: POC Glucose 211 H 10/15/24 00:07: POC Glucose 181 H 10/15/24 05:34: POC Glucose 213 H 10/15/24 06:35: WBC 17.6 H D, RBC 3.84 L, Hgb 11.5 L D, Hct 33.2 L, MCV 86.5, MCH 29.9, MCHC 34.6, RDW 13.0, Plt Count 92 L D, MPV 12.7 H, Neut % (Auto) 90.1 H, Lymph % (Auto) 2.8 L, [place] % (Auto) 5.7, Eos % (Auto) 0.4, Baso % (Auto) 0.3, Neut # (Auto) 15.9 H, Lymph # (Auto) 0.5 L, [place] # (Auto) 1.0, Eos # (Auto) 0.1, Baso # (Auto) 0.1, Total Counted 100, Neutrophils % (Manual) 96 H, Lymphocytes % (Manual) 1 L, Monocytes % (Manual) 3, Platelet Estimate Moderate decrease, RBC Morphology Normal, Sodium 127 L, Potassium 4.1 D, Chloride 101, Carbon Dioxide 20 L, Anion Gap 10.1, BUN 37 H, Creatinine 2.10 H, Estimated Creat Clear 27, Estimated GFR 25 L, Est GFR ( Amer) 30 L, Glucose 216 H, Calcium 7.1 L, Phosphorus 3.2, Magnesium 2.0 D, Total Bilirubin 1.3, AST 35, ALT 17 D, Alkaline Phosphatase 67, Total Protein 5.1 L D, Albumin 2.3 L D, Globulin 2.8, Albumin/Globulin Ratio 0.8 L I & O for Labs for Last 24 Hours: Intake & Output 10/12/24 10/13/24 10/14/24 10/15/24 23:59 23:59 23:59 23:59 Intake Total 700 / 1850 2785 / 2785 Output Total 775 / 875 1250 / 1250 Balance -75 / 975 1535 / 1535 Weight 127.006 kg 123.967 kg Microbiology Reports for the Last 24 Hours: Microbiology 10/14/24 11:07 Blood Blood Culture - Preliminary Gram Negative Rods 10/14/24 09:45 Blood Blood Culture - Preliminary Gram Negative Rods 10/14/24 11:50 Urine,Clean Catch Urine Culture - Preliminary Gram Negative Rods Constitutional: Present mild distress, morbidly obese, chronically ill appearing and cooperative Head: Present atraumatic and normocephalic ENT: Present normal exam Comment:: Flushed cheeks Respiratory: Present normal respiratory effort; Absent rhonchi, wheezes or crackles Cardiac: Present Regular Rhythm and Tachycardia GI: Present soft, tenderness (Nonfocal) and normal bowel sounds; Absent distention Extremities: Present normal inspection and full ROM Skin: Present intact; Absent erythema Neuro: Present Grossly Intact, alert, awake, oriented x 3 and moves all extremities Assessment and Plan *Assessment and plan (1) Sepsis: Status: Acute Category: Medical Code(s): A41.9 - Sepsis, unspecified organism (2) E coli bacteremia: Status: Acute Category: Medical Code(s): R78.81 - Bacteremia; B96.20 - Unspecified Escherichia coli [E. coli] as the cause of diseases classified elsewhere (3) Urinary tract infection: Status: Acute Category: Medical Code(s): N39.0 - Urinary tract infection, site not specified (4) DKA (diabetic ketoacidosis): Status: Acute Category: Medical Code(s): E11.10 - Type 2 diabetes mellitus with ketoacidosis without coma (5) JODI (acute kidney injury): Status: Acute Category: Medical Code(s): N17.9 - Acute kidney failure, unspecified (6) Diarrhea: Status: Acute Category: Medical Code(s): R19.7 - Diarrhea, unspecified (7) Vomiting: Status: Acute Category: Medical Code(s): R11.10 - Vomiting, unspecified (8) Obesity, morbid (more than 100 lbs over ideal weight or BMI > 40): Status: Acute Category: Medical Code(s): E66.01 - Morbid (severe) obesity due to excess calories (9) Hypothyroid: Status: Acute Category: Medical Code(s): E03.9 - Hypothyroidism, unspecified (10) Depression: Status: Acute Category: Medical Code(s): F32.A - Depression, unspecified (11) Diabetes: Status: Chronic Category: Medical Code(s): E11.9 - Type 2 diabetes mellitus without complications Plan 49-year-old female who presented with intractable nausea and vomiting. Concern for sepsis and DKA. Discussed case with ER physician, request admission for further management. Continues to require stepdown level of care. Blood cultures returned positive for E. coli. Continue broad-spectrum antibiotics. Monitoring kidney function every 12 hours due to JODI. Problems addressed as follows: Sepsis due to E. coli bacteremia, likely secondary to urinary source - Elevated white count 28.9 on admission. Urine grossly abnormal with trace ketones, 3+ blood, 2+ leuk esterase, negative nitrate, white count too numerous to count, 4+ bacteria. Pantoja catheter placed in the ER - White count improved this morning to 17.6. Urine culture growing gram- negative rods, greater than 100K CFU; blood cultures with E. coli by PCR - Continue broad-spectrum antibiotics with vancomycin and Zosyn - CT of abdomen personally reviewed, concern for colitis. Kidneys appear normal with no stones or perinephric stranding. - Repeat CBC, CMP, magnesium ordered for the morning - Tylenol 650 mg as needed every 4 hours for fever pain Intractable nausea and vomiting and diarrhea - Diarrhea panel pending - Zofran for nausea or vomiting 4 mg every 6 hours IV - Tums for heartburn DKA Anion gap metabolic acidosis Diabetes - Anion gap closed today. Showing improvement. Potassium 4.1, magnesium 2.0. Glucose 216. - Continue sliding scale insulin with fingersticks ACHS. - A1c elevated at 7.3 - Not taking meds consistently at home per her report JODI: BUN remains elevated at 32, creatinine 2.1. Improved from 2.3 on admission. Baseline 1.0. Repeat BMP ordered this afternoon. Continue further IV fluids if still elevated; renally dose medications. Caution with nephrotoxins HypoThyroid: - TSH 16. Administered 100 mcg IV levothyroxine once due to poor p.o. intake and questionable tolerance with medication. - Continue levothyroxine 300 mcg daily Resume home Xanax 0.5 mg as needed twice daily for anxiety Resume Cymbalta 30 mg daily for pain and mood Resume gabapentin 300 mg 3 times a day for neuropathy Morbid obesity: complicates all aspects of care Full code Prophylactic Lovenox, renally dosed at 30 mg once today. Reevaluate tomorrow if kidney function improves Diabetic diet
[2024-10-15 15:37] LABS: Chloride 98 mmol/L (98-107); Potassium 3.6 mmoL/L (3.5-5.1); Sodium 125 mmol/L (136-145)
[2024-10-15 15:40] LABS: Anion Gap 9.6 mEq/L (5-15); Blood Urea Nitrogen 37 mg/dl (7-17); Calcium 7.5 mg/dl (8.4-10.2); Carbon Dioxide 21 mmol/L (22.0-30.0); Creatinine Clearance Estimated 25 mL/min (50-200); Estimated Glomerular Filt Rate 22 ml/min (>60); GFR (African American) 27 ML/MIN (>60); Glucose 212 mg/dl (74-100)
[2024-10-15] MEDS: ENOXAPARIN 30MG/0.3ML SYRINGE 30 MG SUBCUT (15:52)
[2024-10-15] MEDS: 0.9 % SODIUM CHLORIDE 1000ML 1,000 ML 500 ML IV (16:24)
[2024-10-15] MEDS: diphenhydrAMINE 25MG CAPSULE 25 MG PO (20:06)
[2024-10-16] VITALS (21 sets, daily range): BP systolic 92–132; BP diastolic 51–86; PULSE 60–78; RESP 12–32; TEMP 36.9–37; O2SAT 90–98; BMI 46.3
[2024-10-16] MEDS: ONDANSETRON 4MG/2ML VIAL 4 MG IV ×4 (01:18→20:13)
[2024-10-16] MEDS: PIPERACILLIN/TAZO 3.375 GM in 0.9 % SODIUM CHLORIDE 50 ML IV ×3 (05:34→16:28)
[2024-10-16] MEDS: humaLOG 100 UNITS/ML 10ML VIAL (SSI) SUBCUT ×4 (06:25→20:27)
[2024-10-16] MEDS: LEVOTHYROXINE 150MCG (0.15MG)TAB 300 MCG PO (06:31)
[2024-10-16 06:48] LABS: Basophils % 0.3 % (0.1-2.0); Eosinophils # 0.1 Kmm3 (0.0-0.4); Eosinophils % 1.1 % (0.1-12.0); Hematocrit 32.4 % (37.0-47.0); Hemoglobin 10.8 g/dL (12.2-16.2); Immature Granulocytes % 0.8 %; Lymphocytes # 0.4 K/mm3 (0.7-4.5); Lymphocytes % 3.5 % (10-50); Mean Corpuscular HGB Conc 33.3 g/dL (31.8-35.4); Mean Corpuscular Hemoglobin 28.9 pg (27.0-31.2); Mean Corpuscular Volume 86.6 fl (81-99); Mean Platelet Volume 12.4 fl (7.4-10.4); Monocytes # 0.9 K/mm3 (0.1-1.0); Neutrophils # 10.6 K/mm3 (1.8-7.8); Neutrophils % 87.3 % (37.0-80.0); Nucleated Red Blood Cells # 0 10^3/uL; Nucleated Red Blood Cells % 0 %; Platelet Count 137 K/mm3 (142-424); Red Blood Count 3.74 M/mm3 (4.20-5.40); Red Cell Distribution Width 13.1 % (11.5-17.5); Red Cell Distribution Width-SD 41.4 fL; White Blood Count 12.2 K/mm3 (4.8-10.8)
[2024-10-16 06:55] LABS: MANUAL DIFFERENTIAL MANUAL DIFFERENTIAL (MANUAL DIFF)
[2024-10-16 07:07] LABS: Albumin Level 2.8 g/dl (3.5-5.0); Chloride 103 mmol/L (98-107); Sodium 128 mmol/L (136-145)
[2024-10-16 07:08] LABS: Potassium 3.3 mmoL/L (3.5-5.1)
[2024-10-16 07:10] LABS: Alanine Aminotransferase 15 U/L (12-78); Anion Gap 9.3 mEq/L (5-15); Aspartate Amino Transferase 22 U/L (14-36); Blood Urea Nitrogen 36 mg/dl (7-17); Carbon Dioxide 19 mmol/L (22.0-30.0); Creatinine Clearance Estimated 29 mL/min (50-200); Estimated Glomerular Filt Rate 26 ml/min (>60); GFR (African American) 32 ML/MIN (>60)
[2024-10-16 07:11] LABS: Alkaline Phosphatase 96 U/L (38-126); Bilirubin,Total 0.8 mg/dl (0.2-1.3); Calcium 7.6 mg/dl (8.4-10.2); Globulin 2.9 g/dL (1.3-3.2); Glucose 224 mg/dl (74-100); Magnesium 2.2 mg/dl (1.6-2.3); Total Protein,Serum 5.7 g/dl (6.3-8.2)
[2024-10-16] MEDS: TIZANIDINE 4MG TABLET 4 MG PO ×2 (08:07→16:28)
[2024-10-16] MEDS: DULOXETINE 30MG CAPSULE.DR 30 MG PO (08:07)
[2024-10-16] MEDS: GABAPENTIN 300MG CAPSULE 300 MG PO ×3 (08:08→20:13)
[2024-10-16 08:46] LABS: POC Glucose,Bedside 220 (70-110)
[2024-10-16 08:46] LABS: POC Glucose,Bedside 212 (70-110)
[2024-10-16 08:46] LABS: POC Glucose,Bedside 258 (70-110)
[2024-10-16 08:46] LABS: POC Glucose,Bedside 219 (70-110)
[2024-10-16 08:54] LABS: Eosinophils % 1 % (0-3); Lymphocytes % 6 % (10-50); Monocytes % 6 % (2-9); Neutrophils % 87 % (42-76); Total Cells Counted 100
[2024-10-16 08:55] LABS: RBC Morphology Normal
[2024-10-16 08:57] LABS: Platelet Estimate Slight Decrease
--- NOTE | 2024-10-16 09:47 | EXP.ACUTE.PN ---
Subjective *Date: 10/16/24 *Time: 21:02 Interval history: On 1 L this morning. Tolerating p.o. intake. Blood pressure little bit better today. Kidney function still abnormal but improving. Patient quite weak. Medical Exam Vital signs and Labs for Last 24 Hours: Vital Signs Temp Pulse Resp BP Pulse Ox O2 Del Method O2 Flow Rate 10/16/24 08:56 Nasal Cannula 1 10/16/24 08:00 98.6 F 69 20 121/73 95 Nasal Cannula 1 10/16/24 07:24 26 H 94 L Nasal Cannula 1 10/16/24 07:00 Nasal Cannula 1 10/16/24 07:00 66 26 H 114/69 92 L Nasal Cannula 1 10/16/24 06:00 71 31 H 93 L 10/16/24 06:00 99/56 L 10/16/24 05:00 Nasal Cannula 1 10/16/24 04:00 71 17 93 L 10/16/24 04:00 92/51 L 10/16/24 04:00 72 10/16/24 03:00 Nasal Cannula 1 10/16/24 02:00 69 26 H 92 L 10/16/24 02:00 111/67 10/16/24 02:00 95 Nasal Cannula 1 10/16/24 01:00 108/67 L 10/16/24 01:00 Nasal Cannula 1 10/16/24 00:00 66 10/16/24 00:00 66 26 H 92 L 10/16/24 00:00 99/70 L 10/15/24 23:00 Nasal Cannula 1 10/15/24 22:00 88/51 L 10/15/24 21:00 Nasal Cannula 1 10/15/24 20:00 101/58 L 10/15/24 20:00 72 10/15/24 19:31 92 L Nasal Cannula 1 10/15/24 18:45 73 29 H 90 L 10/15/24 18:40 77 23 100/72 L 95 Nasal Cannula 1 10/15/24 18:30 76 15 108/68 L 94 L Nasal Cannula 1 10/15/24 18:24 78 14 104/70 L 90 L Nasal Cannula 1 10/15/24 18:20 81 24 86/46 L 95 Nasal Cannula 1 10/15/24 18:15 74 30 H 93 L 10/15/24 18:10 79 31 H 92/53 L 94 L Nasal Cannula 1 10/15/24 18:02 Nasal Cannula 1 10/15/24 18:00 79 27 H 95/58 L 96 Room Air 10/15/24 17:45 78 35 H 94 L Nasal Cannula 1 10/15/24 17:41 99.1 F 78 99/78 L 92 L Nasal Cannula 1 10/15/24 17:32 82 24 138/112 H 96 Nasal Cannula 1 10/15/24 17:30 14 10/15/24 17:20 79 17 122/79 96 Nasal Cannula 1 10/15/24 17:15 76 32 H 95 Nasal Cannula 1 10/15/24 17:10 59 L 22 107/62 L 95 Nasal Cannula 1 10/15/24 17:00 25 H 119/79 10/15/24 16:50 81 25 H 103/57 L 96 Nasal Cannula 1 10/15/24 16:45 76 29 H 94 L Nasal Cannula 1 10/15/24 16:40 75 29 H 118/73 92 L Nasal Cannula 1 10/15/24 16:40 Room Air 10/15/24 16:31 18 99/79 L 10/15/24 16:30 16 10/15/24 16:20 83 21 116/81 91 L Nasal Cannula 1 10/15/24 16:10 77 32 H 113/74 91 L Nasal Cannula 1 10/15/24 16:00 99.6 F 10/15/24 16:00 77 31 H 111/75 92 L Room Air 10/15/24 15:50 20 100/68 L 10/15/24 15:50 86 10/15/24 15:40 80 24 93/63 L 91 L Room Air 10/15/24 15:30 80 22 94/60 L 90 L Room Air 10/15/24 15:20 83 29 H 111/69 92 L Room Air 10/15/24 15:15 73 27 H 92 L Room Air 10/15/24 15:13 64 28 H 109/59 L 90 L Room Air 10/15/24 15:10 85 24 88/56 L 91 L Room Air 10/15/24 15:00 88 19 95/56 L 92 L Room Air 10/15/24 14:50 75 31 H 94/59 L 91 L Room Air 10/15/24 14:40 88 29 H 112/70 91 L Room Air 10/15/24 14:30 84 32 H 99/65 L 91 L Room Air 10/15/24 14:25 Room Air 10/15/24 14:20 86 24 117/73 91 L Room Air 10/15/24 14:15 88 27 H 92 L 10/15/24 14:10 87 18 99/67 L 93 L Room Air 10/15/24 14:00 96 H 23 118/54 L 94 L Room Air 10/15/24 13:50 29 H 111/78 10/15/24 13:45 18 10/15/24 13:40 16 101/75 L 10/15/24 13:30 117 H 23 89/55 L 93 L Room Air 10/15/24 13:20 83 23 90/58 L 94 L Room Air 10/15/24 13:16 93 L Room Air 10/15/24 13:15 81 32 H 94 L Room Air 10/15/24 13:10 91 H 27 H 106/70 L 93 L Room Air 10/15/24 13:04 84 24 95/60 L 95 Room Air 10/15/24 13:00 83 22 86/49 L 94 L Room Air 10/15/24 12:57 86 28 H 89/52 L 92 L Room Air 10/15/24 12:50 81 28 H 78/44 L 94 L Room Air 10/15/24 12:45 82 32 H 92 L Room Air 10/15/24 12:40 78 25 H 91/56 L 92 L Room Air 10/15/24 12:36 78 25 H 79/51 L 94 L Room Air 10/15/24 12:32 78 22 82/52 L 94 L Room Air 10/15/24 12:31 78 25 H 84/54 L 93 L Room Air 10/15/24 12:30 78 20 94 L Room Air 10/15/24 12:29 77 32 H 84/49 L 93 L Room Air 10/15/24 12:28 76/44 L 10/15/24 12:28 75 30 H 93 L Room Air 10/15/24 12:27 Room Air 10/15/24 12:15 83 14 92 L Room Air 10/15/24 12:00 98.9 F 75 34 H 95/54 L 92 L 2 10/15/24 11:56 81 10/15/24 11:45 77 28 H 90 L Room Air 10/15/24 11:30 79 22 91 L Room Air 10/15/24 11:15 81 30 H 94 L Room Air 10/15/24 11:00 85 17 102/68 L 95 Room Air 10/15/24 10:45 87 27 H 90 L Room Air 10/15/24 10:30 91 H 25 H 90 L Room Air 10/15/24 10:15 93 H 29 H 92 L Room Air 10/15/24 10:06 Room Air 10/15/24 10:00 96 H 20 119/73 93 L Room Air Intake and Output 10/15/24 10/16/24 10/16/24 23:59 07:59 15:59 Intake Total 992 / 3827 50 / 290 240 / 290 Output Total 500 / 1750 1950 / 2300 350 / 2300 Balance 492 / 2076 -1899 / - Intake: Intake, Oral Amount 600 / 1400 240 / 240 Intake, Total IV Amount 392 / 2427 50 / 50 Piperacillin/Tazo 3.375 gm In 0 47 / 147 50 / 50 .9 % Sodium Chloride 50 ml @ 100 mls/hr IV Q6 GRETCHEN Rx#: [id number] Vancomycin/Water For Inj (Peg) 345 / 345 1.75 gm In 350 ml @ 175 mls/hr IV Q24H GRETCHEN Rx#:[id number] Output: Output, Urine Amount 250 / 850 1950 / 1950 Output, Urine Amount (Catheter) 250 / 900 350 / 350 Pantoja 250 / 900 350 / 350 Other: Number of Unmeasured Voids 0 Number of Bowel Movements 1 Weight 126.127 kg Patient Weight 10/16/24 23:59 Weight 126.127 kg Laboratory Results - last 24 hr 10/15/24 11:08: POC Glucose 212 H 10/15/24 15:20: Sodium 125 L, Potassium 3.6, Chloride 98, Carbon Dioxide 21 L, Anion Gap 9.6, BUN 37 H, Creatinine 2.30 H, Estimated Creat Clear 25, Estimated GFR 22 L, Est GFR ( Amer) 27 L, Glucose 212 H, Calcium 7.5 L 10/15/24 16:22: POC Glucose 220 H 10/15/24 19:47: POC Glucose 258 H 10/16/24 06:19: WBC 12.2 H D, RBC 3.74 L, Hgb 10.8 L, Hct 32.4 L, MCV 86.6, MCH 28.9, MCHC 33.3, RDW 13.1, Plt Count 137 L D, MPV 12.4 H, Neut % (Auto) 87.3 H, Lymph % (Auto) 3.5 L, [place] % (Auto) 7.0, Eos % (Auto) 1.1, Baso % (Auto) 0.3, Neut # (Auto) 10.6 H, Lymph # (Auto) 0.4 L, [place] # (Auto) 0.9, Eos # (Auto) 0.1, Baso # (Auto) 0.0, Total Counted 100, Neutrophils % (Manual) 87 H, Lymphocytes % (Manual) 6 L, Monocytes % (Manual) 6, Eosinophils % (Manual) 1, Platelet Estimate Slight decrease, RBC Morphology Normal, Sodium 128 L, Potassium 3.3 L, Chloride 103, Carbon Dioxide 19 L, Anion Gap 9.3, BUN 36 H, Creatinine 2.00 H, Estimated Creat Clear 29, Estimated GFR 26 L, Est GFR ( Amer) 32 L, Glucose 224 H, Calcium 7.6 L, Magnesium 2.2, Total Bilirubin 0.8, AST 22 D, ALT 15, Alkaline Phosphatase 96, Total Protein 5.7 L, Albumin 2.8 L D, Globulin 2.9, Albumin/Globulin Ratio 1.0 L 10/16/24 06:22: POC Glucose 219 H I & O for Labs for Last 24 Hours: Intake & Output 10/13/24 10/14/24 10/15/24 10/16/24 23:59 23:59 23:59 23:59 Intake Total 700 / 1850 3777 / 3827 290 / 290 Output Total 775 / 875 1750 / 1750 2300 / 2300 Balance -75 / 975 2026 -2009 / Weight 127.006 kg 123.967 kg 126.127 kg Microbiology Reports for the Last 24 Hours: Microbiology 10/14/24 11:07 Blood Blood Culture - Preliminary Gram Negative Rods 10/14/24 09:45 Blood Blood Culture - Preliminary Gram Negative Rods 10/14/24 11:50 Urine,Clean Catch Urine Culture - Preliminary Gram Negative Rods Constitutional: Present no acute distress, morbidly obese, chronically ill appearing and cooperative Head: Present atraumatic and normocephalic ENT: Present normal exam Comment:: Flushed cheeks Respiratory: Present normal respiratory effort; Absent rhonchi, wheezes or crackles Cardiac: Present Reg Rate and Rhythm GI: Present soft, tenderness (Nonfocal) and normal bowel sounds; Absent distention Extremities: Present normal inspection and full ROM Skin: Present intact; Absent erythema Neuro: Present Grossly Intact, alert, awake, oriented x 3 and moves all extremities Assessment and Plan *Assessment and plan (1) Sepsis: Status: Acute Category: Medical Code(s): A41.9 - Sepsis, unspecified organism (2) E coli bacteremia: Status: Acute Category: Medical Code(s): R78.81 - Bacteremia; B96.20 - Unspecified Escherichia coli [E. coli] as the cause of diseases classified elsewhere (3) Urinary tract infection: Status: Acute Category: Medical Code(s): N39.0 - Urinary tract infection, site not specified (4) DKA (diabetic ketoacidosis): Status: Acute Category: Medical Code(s): E11.10 - Type 2 diabetes mellitus with ketoacidosis without coma (5) JODI (acute kidney injury): Status: Acute Category: Medical Code(s): N17.9 - Acute kidney failure, unspecified (6) Diarrhea: Status: Acute Category: Medical Code(s): R19.7 - Diarrhea, unspecified (7) Vomiting: Status: Acute Category: Medical Code(s): R11.10 - Vomiting, unspecified (8) Obesity, morbid (more than 100 lbs over ideal weight or BMI > 40): Status: Acute Category: Medical Code(s): E66.01 - Morbid (severe) obesity due to excess calories (9) Hypothyroid: Status: Acute Category: Medical Code(s): E03.9 - Hypothyroidism, unspecified (10) Depression: Status: Acute Category: Medical Code(s): F32.A - Depression, unspecified (11) Diabetes: Status: Chronic Category: Medical Code(s): E11.9 - Type 2 diabetes mellitus without complications Plan 49-year-old female who presented with intractable nausea and vomiting. Concern for sepsis and DKA. Discussed case with ER physician, request admission for further management. Showing improvement. Cultures positive for E. coli, sensitivities returned today. Pansensitive. De-escalate antibiotics to levofloxacin for ease of oral administration/dosing at discharge. Pulmonology assisting with care due to lymphadenopathy today and need for follow-up and repeat imaging in the coming months. Problems addressed as follows: Sepsis due to E. coli bacteremia, likely secondary to urinary source - White count improved to 12 today, down from 28 on admission. - Repeat CBC, CMP, magnesium ordered for the morning - Discontinue vancomycin and Zosyn. Initiate levofloxacin 750 mg renally dosed every 48 hours. - Urine culture and blood culture reviewed, pansensitive E. coli. - Discussed patient's sepsis and lymphadenopathy with pulmonology today, suspect likely reactive however concerning in the setting of splenomegaly. Recommend follow-up CT in 3 months without contrast as an outpatient. Consider outpatient hematologic evaluation. - Tylenol 650 mg as needed every 4 hours for fever pain Hypoxia -Continue oxygen supplementation on as-needed basis to maintain O2 saturation goal of 90% and above. Patient carries a diagnosis sleep apnea, prescribed NIV as an outpatient basis however not been compliant. - Continue oxygen supplementation at night to maintain O2 saturation of 90% and above - DuoNebs 4 times daily as needed Intractable nausea and vomiting and diarrhea, improving - Zofran for nausea or vomiting 4 mg every 6 hours IV - Tums for heartburn DKA, resolved Anion gap metabolic acidosis Diabetes - Diabetes better controlled. Morning glucose still 224 however. Potassium 3.3, magnesium 2.2. - Continue sliding scale insulin with fingersticks ACHS. - A1c elevated at 7.3 - Not taking meds consistently at home per her report - Continue replacement of electrolytes per protocol JODI: BUN remains elevated at 36, creatinine 2.0. Down from 2.3 on admission. Baseline appears to be 1.0. renally dose medications. Caution with nephrotoxins HypoThyroid: - TSH 16. Continue levothyroxine 300 mcg daily - Need to recheck in 6 weeks Resume home Xanax 0.5 mg as needed twice daily for anxiety Resume Cymbalta 30 mg daily for pain and mood Resume gabapentin 300 mg 3 times a day for neuropathy Morbid obesity: complicates all aspects of care Full code Prophylactic Lovenox, renally dosed at 30 mg daily Diabetic diet
--- NOTE | 2024-10-16 09:52 | PC.NURSE ---
Verified creatinine clearance with . requests electrolyte replacement protocol for potassium. Pharmacy notified. Continuation of care plan.
[2024-10-16] MEDS: POTASSIUM CHLORIDE 20MEQ TAB 40 MEQ PO ×2 (09:58→13:05)
--- NOTE | 2024-10-16 10:14 | EXP.PULM.CON ---
History of Present Illness History of present illness: Ms. Thomson is a 49-year-old female history of diabetes hypertension fibromyalgia presented to the ER with 4-5 history of nausea vomiting and diarrhea pulmonary was called for further evaluation and management. She denies any baseline respiratory symptoms. Not using any inhalers or oxygen at baseline [facility] Disclaimer: The information contained in this section may have been updated after the patient was seen, as this information can be updated by other users. Medical History (Updated 10/16/24 @ 12:22 by Arnold Webb MD) Splenomegaly Mediastinal lymphadenopathy Sepsis Kidney stone Urinary tract infection Pneumonia History of COVID-19 Bronchitis History of stroke Migraine Arthritis Hives History of gastroesophageal reflux (GERD) Allergies Hypertension History of anemia Fibromyalgia Migraines IBS (irritable bowel syndrome) Depression Anxiety Hypothyroid Diabetes Surgical History History of surgery History of cholecystectomy History of tubal ligation History of D&C History of section Family History Other Cancer Family history of cardiac disorder Family history of depression Family history of diabetes mellitus Family history of liver disease Social History Smoking Status: Current every day smoker tobacco type: cigarettes packs per day: 1 second hand exposure: Yes alcohol intake: never substance use type: denies use current occupational status: employed and unemployed Travel in the last 8 weeks?: None household members: spouse housing: house Have you lived/traveled outside [place] in past 30 days?: No Contact w/someone who lives/traveled outside US past 30 days?: No Exposure to someone with infectious disease in past 14 days?: No Do you have a fever (greater than 100.4 F or 38 C)?: Yes Have you tested positive for COVID-19?: No Exposed to someone with COVID-19 in past 14 days?: No Do you have a sore throat?: No Do you have a cough?: No Do you have any weakness?: No Do you have any diarrhea?: Yes Are you experiencing any unusual bleeding?: No Do you have any muscle aches/pain?: No Do you have any abdominal pain?: No Are you experiencing loss of taste or smell?: No Review of Systems Constitutional Constitutional: Reports anorexia, Reports body ache(s) and Reports fatigue Eyes Eyes: Denies eye discharge, Denies dry eyes, Denies irritation and Denies itchy eyes ENT Ears, Nose, Mouth, and Throat: Denies epistaxis, Denies facial pain, Denies lip swelling and Denies throat swelling *Cardiovascular Cardiovascular: Denies dyspnea and Reports dyspnea on exertion *Respiratory Respiratory: Denies change in phlegm color, Reports chest congestion, Denies cough, Denies dyspnea, Reports dyspnea on exertion, Denies excessive phlegm production and Denies wheezing *Gastrointestinal Gastrointestinal: Denies abdominal pain, Denies belching and Denies cramping *Musculoskeletal Musculoskeletal: Reports myalgias and Reports other (No small joint swelling or Pain) Psychiatric Psychiatric: Denies homicidal ideation and Denies suicidal ideation Endocrine Endocrine: Reports fatigue and Denies heat intolerance Hematologic/Lymphatic Hematologic/Lymphatic: Denies easy bleeding and Denies lymphadenopathy Allergic/Immunologic Allergic/Immunologic: Denies itchy eyes, Denies lip swelling, Denies throat swelling and Denies wheezing Pulmonology Exam Inpatient Vital signs and Labs for Last 24 Hours: Temp Pulse Resp BP Pulse Ox O2 Del Method O2 Flow Rate 98.6 F 69 20 121/73 95 Nasal Cannula 1 10/16/24 08:00 10/16/24 08:00 10/16/24 08:00 10/16/24 08:00 10/16/24 08:00 10/16/24 08:56 10/16/24 08:56 Laboratory Results - last 24 hr 10/15/24 11:08: POC Glucose 212 H 10/15/24 15:20: Sodium 125 L, Potassium 3.6, Chloride 98, Carbon Dioxide 21 L, Anion Gap 9.6, BUN 37 H, Creatinine 2.30 H, Estimated Creat Clear 25, Estimated GFR 22 L, Est GFR ( Amer) 27 L, Glucose 212 H, Calcium 7.5 L 10/15/24 16:22: POC Glucose 220 H 10/15/24 19:47: POC Glucose 258 H 10/16/24 06:19: WBC 12.2 H D, RBC 3.74 L, Hgb 10.8 L, Hct 32.4 L, MCV 86.6, MCH 28.9, MCHC 33.3, RDW 13.1, Plt Count 137 L D, MPV 12.4 H, Neut % (Auto) 87.3 H, Lymph % (Auto) 3.5 L, [place] % (Auto) 7.0, Eos % (Auto) 1.1, Baso % (Auto) 0.3, Neut # (Auto) 10.6 H, Lymph # (Auto) 0.4 L, [place] # (Auto) 0.9, Eos # (Auto) 0.1, Baso # (Auto) 0.0, Total Counted 100, Neutrophils % (Manual) 87 H, Lymphocytes % (Manual) 6 L, Monocytes % (Manual) 6, Eosinophils % (Manual) 1, Platelet Estimate Slight decrease, RBC Morphology Normal, Sodium 128 L, Potassium 3.3 L, Chloride 103, Carbon Dioxide 19 L, Anion Gap 9.3, BUN 36 H, Creatinine 2.00 H, Estimated Creat Clear 29, Estimated GFR 26 L, Est GFR ( Amer) 32 L, Glucose 224 H, Calcium 7.6 L, Magnesium 2.2, Total Bilirubin 0.8, AST 22 D, ALT 15, Alkaline Phosphatase 96, Total Protein 5.7 L, Albumin 2.8 L D, Globulin 2.9, Albumin/Globulin Ratio 1.0 L 10/16/24 06:22: POC Glucose 219 H I & O for Labs for Last 24 Hours: Intake & Output 10/13/24 10/14/24 10/15/24 10/16/24 23:59 23:59 23:59 23:59 Intake Total 700 / 1850 3777 / 3827 290 / 290 Output Total 775 / 875 1750 / 1750 2300 / 2300 Balance -75 / 975 2026 -2009 Weight 280 lb 273 lb 4.8 oz 278 lb 1 oz Microbiology Reports for the Last 24 Hours: Microbiology 10/14/24 11:07 Blood Blood Culture - Preliminary Gram Negative Rods 10/14/24 09:45 Blood Blood Culture - Preliminary Gram Negative Rods 10/14/24 11:50 Urine,Clean Catch Urine Culture - Preliminary Gram Negative Rods Constitutional: Present moderate distress Head: Present normocephalic and atraumatic ENT: Present normal exam, normal oropharynx and mucous membranes moist Neck: Present normal inspection and full ROM Respiratory: Present normal respiratory effort and able to speak in complete sentences; Absent prolonged expiratory phase, respiratory distress, rhonchi, wheezes or crackles Cardiac: Present S1/S2, Tachycardia and radial pulses present GI: Present soft and distention; Absent tenderness or guarding Rectal (female): Present deferred (female): Present deferred Skin: Present intact; Absent cyanosis or jaundice Neuro: Present alert, awake and oriented x 3 Extremities: Present normal inspection; Absent clubbing or cyanosis Psychiatric: Present normal affect and cooperative Meds Home Medications and Allergies Home Medications ?Medication ?Instructions ?Recorded ?Confirmed ?Type gabapentin 300 mg capsule 300 mg PO TID Pain 10/01/22 10/15/24 History levothyroxine 300 mcg tablet 300 mcg PO AM thyroid 10/01/22 10/15/24 History metformin 1,000 mg tablet 1,000 mg PO BID Diabetes 10/01/22 10/15/24 History propranolol 20 mg tablet 20 mg PO BID HEARTRATE 11/18/22 10/15/24 History duloxetine 30 mg capsule,delayed 30 mg PO DAILY 03/15/23 10/15/24 History release tizanidine 4 mg tablet 4 mg PO QIDP PRN Pain 03/15/23 10/15/24 History levothyroxine 100 mcg tablet 100 mcg PO HS 10/14/24 10/15/24 History New Prescriptions to Start Prescriptions: Allergies Allergy/AdvReac Type Severity Reaction Status Date / Time sulfamethazine Allergy Mild I-HIVES Verified 08/18/23 08:26 (SULFAMETHAZINE) tramadol (TRAMADOL) Allergy Mild Rash Verified 10/14/24 11:34 trimethoprim (TRIMETHOPRIM) Allergy Mild I-HIVES Verified 08/18/23 08:26 codeine (CODEINE) Allergy Unknown Other Verified 10/14/24 11:34 Cephalosporins Allergy Hives Verified 10/16/24 07:28 Iodinated Contrast Media Allergy Other Verified 10/14/24 11:34 Results Laboratory Findings 10/16/24 06:19 10/16/24 06:19 Abnormal lab findings: Abnormal Labs 10/14/24 10/14/24 10/14/24 09:45 10:12 11:50 WBC 28.9 H* RBC Hgb Hct Plt Count MPV 12.1 H Neut % (Auto) 90.4 H Lymph % (Auto) 2.0 L Eos % (Auto) 0.0 L Neut # (Auto) 26.2 H Lymph # (Auto) 0.6 L [place] # (Auto) 1.7 H Neutrophils % (Manual) 95 H Lymphocytes % (Manual) 1 L VBG pH 7.47 H VBG pCO2 27.0 L VBG pO2 50.5 H VBG HCO3 19.3 L VBG Total CO2 20.1 L VBG O2 Saturation 88.9 H VBG Base Excess -4.3 L VBG Lactic Acid 7.5 H Sodium 127 L Potassium 3.4 L Chloride 93 L Carbon Dioxide 18 L Anion Gap 19.4 H BUN 30 H Creatinine 2.20 H Estimated GFR 24 L Est GFR ( Amer) 28 L Glucose 391 H POC Glucose Hemoglobin A1c 7.3 H Calcium Magnesium 1.2 L Total Bilirubin 1.8 H NT-Pro-B Natriuret Pep 983 H Total Protein Albumin Globulin 3.4 H Albumin/Globulin Ratio TSH 16.80 H Urine Protein 3+ A Urine Blood 3+ A Urine Bilirubin 2+ A Ur Leukocyte Esterase 2+ A 10/14/24 10/14/24 10/14/24 16:16 17:10 19:15 WBC RBC Hgb Hct Plt Count MPV Neut % (Auto) Lymph % (Auto) Eos % (Auto) Neut # (Auto) Lymph # (Auto) [place] # (Auto) Neutrophils % (Manual) Lymphocytes % (Manual) VBG pH VBG pCO2 VBG pO2 VBG HCO3 VBG Total CO2 VBG O2 Saturation VBG Base Excess VBG Lactic Acid Sodium 127 L Potassium 3.4 L Chloride 94 L Carbon Dioxide Anion Gap BUN 34 H Creatinine 2.10 H Estimated GFR 25 L Est GFR ( Amer) 30 L Glucose 255 H D POC Glucose 238 H 211 H Hemoglobin A1c Calcium 8.3 L Magnesium Total Bilirubin NT-Pro-B Natriuret Pep Total Protein Albumin Globulin Albumin/Globulin Ratio TSH Urine Protein Urine Blood Urine Bilirubin Ur Leukocyte Esterase 10/15/24 10/15/24 10/15/24 00:07 05:34 06:35 WBC 17.6 H D RBC 3.84 L Hgb 11.5 L D Hct 33.2 L Plt Count 92 L D MPV 12.7 H Neut % (Auto) 90.1 H Lymph % (Auto) 2.8 L Eos % (Auto) Neut # (Auto) 15.9 H Lymph # (Auto) 0.5 L [place] # (Auto) Neutrophils % (Manual) 96 H Lymphocytes % (Manual) 1 L VBG pH VBG pCO2 VBG pO2 VBG HCO3 VBG Total CO2 VBG O2 Saturation VBG Base Excess VBG Lactic Acid Sodium 127 L Potassium Chloride Carbon Dioxide 20 L Anion Gap BUN 37 H Creatinine 2.10 H Estimated GFR 25 L Est GFR ( Amer) 30 L Glucose 216 H POC Glucose 181 H 213 H Hemoglobin A1c Calcium 7.1 L Magnesium Total Bilirubin NT-Pro-B Natriuret Pep Total Protein 5.1 L D Albumin 2.3 L D Globulin Albumin/Globulin Ratio 0.8 L TSH Urine Protein Urine Blood Urine Bilirubin Ur Leukocyte Esterase 10/15/24 10/15/24 10/15/24 11:08 15:20 16:22 WBC RBC Hgb Hct Plt Count MPV Neut % (Auto) Lymph % (Auto) Eos % (Auto) Neut # (Auto) Lymph # (Auto) [place] # (Auto) Neutrophils % (Manual) Lymphocytes % (Manual) VBG pH VBG pCO2 VBG pO2 VBG HCO3 VBG Total CO2 VBG O2 Saturation VBG Base Excess VBG Lactic Acid Sodium 125 L Potassium Chloride Carbon Dioxide 21 L Anion Gap BUN 37 H Creatinine 2.30 H Estimated GFR 22 L Est GFR ( Amer) 27 L Glucose 212 H POC Glucose 212 H 220 H Hemoglobin A1c Calcium 7.5 L Magnesium Total Bilirubin NT-Pro-B Natriuret Pep Total Protein Albumin Globulin Albumin/Globulin Ratio TSH Urine Protein Urine Blood Urine Bilirubin Ur Leukocyte Esterase 10/15/24 10/16/24 10/16/24 19:47 06:19 06:22 WBC 12.2 H D RBC 3.74 L Hgb 10.8 L Hct 32.4 L Plt Count 137 L D MPV 12.4 H Neut % (Auto) 87.3 H Lymph % (Auto) 3.5 L Eos % (Auto) Neut # (Auto) 10.6 H Lymph # (Auto) 0.4 L [place] # (Auto) Neutrophils % (Manual) 87 H Lymphocytes % (Manual) 6 L VBG pH VBG pCO2 VBG pO2 VBG HCO3 VBG Total CO2 VBG O2 Saturation VBG Base Excess VBG Lactic Acid Sodium 128 L Potassium 3.3 L Chloride Carbon Dioxide 19 L Anion Gap BUN 36 H Creatinine 2.00 H Estimated GFR 26 L Est GFR ( Amer) 32 L Glucose 224 H POC Glucose 258 H 219 H Hemoglobin A1c Calcium 7.6 L Magnesium Total Bilirubin NT-Pro-B Natriuret Pep Total Protein 5.7 L Albumin 2.8 L D Globulin Albumin/Globulin Ratio 1.0 L TSH Urine Protein Urine Blood Urine Bilirubin Ur Leukocyte Esterase Assessment and Plan *Assessment and plan (1) Mediastinal lymphadenopathy: Status: Acute Category: Medical Code(s): R59.0 - Localized enlarged lymph nodes (2) Splenomegaly: Status: Acute Category: Medical Code(s): R16.1 - Splenomegaly, not elsewhere classified (3) Sepsis: Status: Acute Category: Medical Code(s): A41.9 - Sepsis, unspecified organism Plan Ms. Thomson is a 49-year-old female history of diabetes hypertension fibromyalgia presented to the ER with 4-5 history of nausea vomiting and diarrhea pulmonary was called for further evaluation and management. She denies any baseline respiratory symptoms. Not using any inhalers or oxygen at baseline Febrile upon admission Tmax 100.1. Improving. Hemodynamically stable. Significant neutrophilic predominant leukocytosis, and count of 28.9 upon admission, improving. Blood gas upon admission showed respiratory alkalosis. Blood pressure derangements including hyponatremia hypokalemia and JODI. Blood and sputum cultures showing gram-negative rods. Prior history of E. coli UTI sensitive to ceftriaxone, intermediate to levofloxacin. Currently on broad-spectrum antibiotics including vancomycin and Zosyn. CT chest upon admission no dense consolidative/airspace changes. No pleural effusions. Station 4 and 7 lymphadenopathy noted, not significant. Can well be reactive. CT abdomen concerning for hepatomegaly and hepatic parenchymal disease, splenomegaly, possible renal parenchymal disease, proximal colon gastroenteritis and free fluid intraperitoneally. HIV and hepatitis C screening upon admission negative. Plan: - Further noted sepsis antibiotics can be weaned to Zosyn pending final sputum culture results. Prelim cultures showing gram-negative rods. - The noted mediastinal lymphadenopathy can well be reactive, however concerning the setting of the noted splenomegaly. Will follow 3-month CT chest without contrast as an outpatient basis to further determine the need for bronchoscopy EBUS FNA. Patient would also benefit from outpatient hematology evaluation -Continue oxygen supplementation on as-needed basis to maintain O2 saturation goal of 90% and above. Patient carries a diagnosis sleep apnea, prescribed NIV as an outpatient basis however not been compliant. Continue oxygen supplementation at night to maintain O2 saturation of 90% and above - DuoNebs 4 times daily as needed
[2024-10-16 11:02] LABS: POC Glucose,Bedside 199 (70-110)
[2024-10-16 11:14] LABS: Vancomycin,Trough 14.2 ug/mL (5.0-10.0)
[2024-10-16] MEDS: VANCOMYCIN/WATER FOR INJ (PEG) 1.75 GM/350 ML PIGGYBACK IV (11:33)
--- NOTE | 2024-10-16 14:14 | PC.NURSE ---
Urinary Pantoja Catheter removed at this time. Pantoja catheter intact. Patient tolerated well. Continuation of care plan.
[2024-10-16 16:32] LABS: POC Glucose,Bedside 198 (70-110)
[2024-10-16] MEDS: CALCIUM CARBONATE 500MG CHEWTAB 500 MG PO (16:35)
--- NOTE | 2024-10-16 17:26 | PC.NURSE ---
Report given to MICHAEL Tellez.
--- NOTE | 2024-10-16 17:37 | PC.NURSE ---
arrived by w/c from ICU
[2024-10-16] MEDS: LEVOFLOXACIN/D5W 750 MG/150 ML 750 MG/150 ML PIGGYBACK 100 MG IV (20:13)
[2024-10-16 22:03] LABS: POC Glucose,Bedside 202 (70-110)
[2024-10-16] MEDS: ACETAMINOPHEN 325MG TAB 650 MG PO (22:15)
[2024-10-16] MEDS: ENOXAPARIN 30MG/0.3ML SYRINGE 30 MG SUBCUT (22:15)
[2024-10-16] MEDS: diphenhydrAMINE 25MG CAPSULE 25 MG PO (22:20)
[2024-10-17] VITALS: BP 135/75; PULSE 66; RESP 16; TEMP 36.7; O2SAT 98
[2024-10-17] MEDS: TIZANIDINE 4MG TABLET 4 MG PO ×2 (00:35→11:24)
[2024-10-17] MEDS: ACETAMINOPHEN 325MG TAB 650 MG PO (02:40)
[2024-10-17] MEDS: ONDANSETRON 4MG/2ML VIAL 4 MG IV ×2 (02:40→08:40)
--- NOTE | 2024-10-17 03:45 | PC.NURSE ---
Patient is alert and oriented x4. She was observed to have both wakeful periods and resting periods (eyes closed, respirations even/unlabored) throughout the night. Patient has had multiple complaints this shift, such as headaches, nausea, and generalized muscle aches. Tylenol, Zofran, one dose of Benadryl, and Tizanidine were given as needed, accordingly for each complaint, per MAR. Other scheduled medications were administered per MAR as well. ACHS glucose checks performed. Auscultation of her heart, lungs, and bowels were within normal findings. Oxygen saturations have remained >90% on 1 L of oxygen via nasal cannula. Patient requires x1 assistance during ambulation in her room/to the bathroom due to weakness/unsteadiness. Vital signs stable. At this time, the patient is resting in bed without any further complaints. No new needs at this time. Call light within reach.
[2024-10-17 04:00] VITALS: BP 137/76; PULSE 62; RESP 17; TEMP 36.6; O2SAT 97; BMI 45.7
[2024-10-17 05:48] LABS: POC Glucose,Bedside 162 (70-110)
[2024-10-17] MEDS: humaLOG 100 UNITS/ML 10ML VIAL (SSI) SUBCUT ×2 (05:50→11:20)
[2024-10-17 06:34] LABS: Basophils % 0.4 % (0.1-2.0); Eosinophils # 0.2 Kmm3 (0.0-0.4); Eosinophils % 1.5 % (0.1-12.0); Hemoglobin 11.7 g/dL (12.2-16.2); Immature Granulocytes # 0.13 10^3uL; Immature Granulocytes % 1.2 %; Lymphocytes # 0.6 K/mm3 (0.7-4.5); Lymphocytes % 5.9 % (10-50); Mean Corpuscular HGB Conc 32.5 g/dL (31.8-35.4); Mean Corpuscular Hemoglobin 28.3 pg (27.0-31.2); Mean Platelet Volume 11.3 fl (7.4-10.4); Monocytes % 9.2 % (1.7-9.3); Neutrophils # 8.5 K/mm3 (1.8-7.8); Neutrophils % 81.8 % (37.0-80.0); Nucleated Red Blood Cells # 0 10^3/uL; Nucleated Red Blood Cells % 0 %; Platelet Count 169 K/mm3 (142-424); Red Blood Count 4.14 M/mm3 (4.20-5.40); Red Cell Distribution Width 13.2 % (11.5-17.5); Red Cell Distribution Width-SD 41.7 fL; White Blood Count 10.4 K/mm3 (4.8-10.8)
[2024-10-17 07:04] LABS: Chloride 108 mmol/L (98-107)
[2024-10-17 07:05] LABS: Albumin Level 2.8 g/dl (3.5-5.0); Potassium 4.1 mmoL/L (3.5-5.1); Sodium 133 mmol/L (136-145)
[2024-10-17 07:07] LABS: Alanine Aminotransferase 14 U/L (12-78); Anion Gap 11.1 mEq/L (5-15); Aspartate Amino Transferase 21 U/L (14-36); Bilirubin,Total 0.7 mg/dl (0.2-1.3); Blood Urea Nitrogen 28 mg/dl (7-17); Carbon Dioxide 18 mmol/L (22.0-30.0); Creatinine Clearance Estimated 34 mL/min (50-200); Estimated Glomerular Filt Rate 32 ml/min (>60); GFR (African American) 38 ML/MIN (>60)
[2024-10-17 07:08] LABS: Albumin/Globulin Ratio 0.9 (1.1-1.8); Alkaline Phosphatase 103 U/L (38-126); Calcium 8.4 mg/dl (8.4-10.2); Globulin 3.2 g/dL (1.3-3.2); Glucose 182 mg/dl (74-100)
[2024-10-17 07:22] LABS: Magnesium 1.9 mg/dl (1.6-2.3)
[2024-10-17 07:47] VITALS: BP 122/67; PULSE 67; RESP 18; TEMP 36.7; O2SAT 95
[2024-10-17] MEDS: GABAPENTIN 300MG CAPSULE 300 MG PO ×2 (08:45→13:40)
[2024-10-17] MEDS: DULOXETINE 30MG CAPSULE.DR 30 MG PO (08:46)
[2024-10-17] MEDS: LEVOTHYROXINE 150MCG (0.15MG)TAB 300 MCG PO (08:46)
[2024-10-17] MEDS: ENOXAPARIN 40MG/0.4ML SYRINGE 40 MG SUBCUT (08:46)
--- NOTE | 2024-10-17 09:20 | P.PN_ITS ---
Subjective *Date: 10/17/24 *Time: 10:43 Interval history: No acute respiratory events overnight. Pulmonology Exam Inpatient Vital signs and Labs for Last 24 Hours: Temp Pulse Resp BP Pulse Ox O2 Del Method O2 Flow Rate 98.0 F 67 18 122/67 95 Room Air 1 10/17/24 07:47 10/17/24 07:47 10/17/24 07:47 10/17/24 07:47 10/17/24 07:47 10/17/24 09:00 10/17/24 06:30 Laboratory Results - last 24 hr 10/16/24 10:19: Vancomycin Trough 14.2 H 10/16/24 10:56: POC Glucose 199 H 10/16/24 16:25: POC Glucose 198 H 10/16/24 20:18: POC Glucose 202 H 10/17/24 05:39: POC Glucose 162 H 10/17/24 06:23: WBC 10.4, RBC 4.14 L, Hgb 11.7 L, Hct 36.0 L, MCV 87.0, MCH 28.3, MCHC 32.5, RDW 13.2, Plt Count 169, MPV 11.3 H, Neut % (Auto) 81.8 H, Lymph % (Auto) 5.9 L, [place] % (Auto) 9.2, Eos % (Auto) 1.5, Baso % (Auto) 0.4, Neut # (Auto) 8.5 H, Lymph # (Auto) 0.6 L, [place] # (Auto) 1.0, Eos # (Auto) 0.2, Baso # (Auto) 0.0, Sodium 133 L, Potassium 4.1 D, Chloride 108 H, Carbon Dioxide 18 L, Anion Gap 11.1, BUN 28 H, Creatinine 1.70 H, Estimated Creat Clear 34, Estimated GFR 32 L, Est GFR ( Amer) 38 L, Glucose 182 H, Calcium 8.4, Magnesium 1.9 D, Total Bilirubin 0.7, AST 21, ALT 14, Alkaline Phosphatase 103, Total Protein 6.0 L, Albumin 2.8 L, Globulin 3.2, Albumin/Globulin Ratio 0.9 L Temp Pulse Resp BP Pulse Ox O2 Del Method O2 Flow Rate 98.6 F 69 20 121/73 95 Nasal Cannula 1 10/16/24 08:00 10/16/24 08:00 10/16/24 08:00 10/16/24 08:00 10/16/24 08:00 10/16/24 08:56 10/16/24 08:56 Laboratory Results - last 24 hr 10/15/24 11:08: POC Glucose 212 H 10/15/24 15:20: Sodium 125 L, Potassium 3.6, Chloride 98, Carbon Dioxide 21 L, Anion Gap 9.6, BUN 37 H, Creatinine 2.30 H, Estimated Creat Clear 25, Estimated GFR 22 L, Est GFR ( Amer) 27 L, Glucose 212 H, Calcium 7.5 L 10/15/24 16:22: POC Glucose 220 H 10/15/24 19:47: POC Glucose 258 H 10/16/24 06:19: WBC 12.2 H D, RBC 3.74 L, Hgb 10.8 L, Hct 32.4 L, MCV 86.6, MCH 28.9, MCHC 33.3, RDW 13.1, Plt Count 137 L D, MPV 12.4 H, Neut % (Auto) 87.3 H, Lymph % (Auto) 3.5 L, [place] % (Auto) 7.0, Eos % (Auto) 1.1, Baso % (Auto) 0.3, Neut # (Auto) 10.6 H, Lymph # (Auto) 0.4 L, [place] # (Auto) 0.9, Eos # (Auto) 0.1, Baso # (Auto) 0.0, Total Counted 100, Neutrophils % (Manual) 87 H, Lymphocytes % (Manual) 6 L, Monocytes % (Manual) 6, Eosinophils % (Manual) 1, Platelet Estimate Slight decrease, RBC Morphology Normal, Sodium 128 L, Potassium 3.3 L, Chloride 103, Carbon Dioxide 19 L, Anion Gap 9.3, BUN 36 H, Creatinine 2.00 H, Estimated Creat Clear 29, Estimated GFR 26 L, Est GFR ( Amer) 32 L, Glucose 224 H, Calcium 7.6 L, Magnesium 2.2, Total Bilirubin 0.8, AST 22 D, ALT 15, Alkaline Phosphatase 96, Total Protein 5.7 L, Albumin 2.8 L D, Globulin 2.9, Albumin/Globulin Ratio 1.0 L 10/16/24 06:22: POC Glucose 219 H I & O for Labs for Last 24 Hours: Intake & Output 10/14/24 10/15/24 10/16/24 10/17/24 23:59 23:59 23:59 23:59 Intake Total 700 / 1850 3777 / 3827 1541 / 7 505 / 505 Output Total 775 / 875 1750 / 1750 3950 / 3950 0 / 0 Balance -75 / 975 2026 / 505 / 505 Weight 280 lb 273 lb 4.8 oz 277 lb 12.519 oz 274 lb 9.6 oz Intake & Output 10/13/24 10/14/24 10/15/24 10/16/24 23:59 23:59 23:59 23:59 Intake Total 700 / 1850 3777 / 3827 290 / 290 Output Total 775 / 875 1750 / 1750 2300 / 2300 Balance -75 / 975 2026 -2009 Weight 280 lb 273 lb 4.8 oz 278 lb 1 oz Microbiology Reports for the Last 24 Hours: Microbiology 10/14/24 11:50 Urine,Clean Catch Urine Culture - Final Escherichia coli 10/14/24 11:07 Blood Blood Culture - Final Escherichia coli 10/14/24 09:45 Blood Blood Culture - Final Escherichia coli Microbiology 10/14/24 11:07 Blood Blood Culture - Preliminary Gram Negative Rods 10/14/24 09:45 Blood Blood Culture - Preliminary Gram Negative Rods 10/14/24 11:50 Urine,Clean Catch Urine Culture - Preliminary Gram Negative Rods Constitutional: Present moderate distress Head: Present normocephalic and atraumatic ENT: Present normal exam, normal oropharynx and mucous membranes moist Neck: Present normal inspection and full ROM Respiratory: Present normal respiratory effort and able to speak in complete sentences; Absent prolonged expiratory phase, respiratory distress, rhonchi, wheezes or crackles Cardiac: Present S1/S2, Tachycardia and radial pulses present GI: Present soft and distention; Absent tenderness or guarding Rectal (female): Present deferred (female): Present deferred Skin: Present intact; Absent cyanosis or jaundice Neuro: Present alert, awake and oriented x 3 Extremities: Present normal inspection; Absent clubbing or cyanosis Psychiatric: Present normal affect and cooperative Assessment and Plan *Assessment and plan (1) Mediastinal lymphadenopathy: Status: Acute Category: Medical Code(s): R59.0 - Localized enlarged lymph nodes (2) Splenomegaly: Status: Acute Category: Medical Code(s): R16.1 - Splenomegaly, not elsewhere classified (3) Sepsis: Status: Acute Category: Medical Code(s): A41.9 - Sepsis, unspecified organism Plan Ms. Thomson is a 49-year-old female history of diabetes hypertension fibromyalgia presented to the ER with 4-5 history of nausea vomiting and diarrhea pulmonary was called for further evaluation and management. She denies any baseline respiratory symptoms. Not using any inhalers or oxygen at baseline Febrile upon admission Tmax 100.1. Improving. Hemodynamically stable. Significant neutrophilic predominant leukocytosis, and count of 28.9 upon admission, improving. Blood gas upon admission showed respiratory alkalosis. Blood pressure derangements including hyponatremia hypokalemia and JODI. Blood and sputum cultures showing gram-negative rods. Prior history of E. coli UTI sensitive to ceftriaxone, intermediate to levofloxacin. Currently on broad-spectrum antibiotics including vancomycin and Zosyn. CT chest upon admission no dense consolidative/airspace changes. No pleural effusions. Station 4 and 7 lymphadenopathy noted, not significant. Can well be reactive. CT abdomen concerning for hepatomegaly and hepatic parenchymal disease, splenomegaly, possible renal parenchymal disease, proximal colon gastroenteritis and free fluid intraperitoneally. HIV and hepatitis C screeningupon admission negative. Interval update: No acute respiratory vents overnight. Continue treatment improvement during the daytime. Improving leukocytosis. Blood and urine cultures growing E. coli pansensitive. Antibiotics can be weaned to levofloxacin to complete a total of 10-day course Plan: - Antibiotics can be weaned to levofloxacin to complete a total of 10-day course from negative blood cultures. Repeat blood cultures today. - The noted mediastinal lymphadenopathy can well be reactive, however concerning the setting of the noted splenomegaly. Will follow 3-month CT chest without contrast as an outpatient basis to further determine the need for bronchoscopy EBUS FNA. Patient nephew recently diagnosed with lymphoma and her daughter was diagnosed with fungal infection, both presented with lymphadenopathy and had a biopsy performed. Patient would also benefit from outpatient hematology evaluation -Continue oxygen supplementation on as-needed basis to maintain O2 saturation goal of 90% and above. Patient carries a diagnosis sleep apnea, prescribed NIV as an outpatient basis however not been compliant. Continue oxygen supplementation at night to maintain O2 saturation of 90% and above - DuoNebs 4 times daily as needed
--- NOTE | 2024-10-17 10:09 | HMH.PTEV ---
Physical Therapy Evaluation Rehab PT IP Evaluation Start: 10/16/24 21:04 Freq: ONCE Status: Active Protocol: Document 10/17/24 10:03 KOKO (Rec: 10/17/24 10:09 KOKO [id number]) Subjective/History History History Per H&P: Ms. Thomson is a 49-year-old morbidly obese female with diabetes, depression, fibromyalgia, depression, neuropathy who presented the ER with 4 to 5 days of nausea, vomiting, diarrhea. States she has been too weak to care for self. Hurts all over from vomiting so much. Has also been coughing. Denies sheba fever. No blood in vomit or stool. Has not been able to take her medications. Has not been taking them consistently prior to getting sick due to lack of PCP at this time. On arrival to the ER, patient meeting sepsis criteria with tachycardia, white count of 28,000, concern for UTI on urinalysis. Lab abnormalities include elevated anion gap at 19. Acute kidney injury with BUN 30, creatinine 2.3. Glucose elevated almost 400. Severe electrolyte disturbances and magnesium 1.2. Medicine was consulted for admission due to metabolic disturbances and sepsis. Admitted to stepdown unit. Requiring 2 L nasal cannula oxygen at time of admission. CT abdomen relatively unremarkable. Urine grossly abnormal with white cells, bacteria, leuk esterase positive. Initiated on broad- spectrum antibiotics With vancomycin and Zosyn. Currently receiving her third liter of IV fluids at a maintenance rate by the time of my evaluation. Subjective Subjective Pt reports she lives home with her and children . Pt reports she is usually IND with her mobility but does wish to have a RW. Pt usually furniture walks. New diagnosis of No cancer in past 12 months? [facility] How much help from another person do you currently need... Turning from your None back to your side while in a flat bed without using bedrails? Moving from lying on None back to sitting on the side of a flat bed without using bedrails? Moving to and from a None bed to a chair ( including a wheelchair)? Standing up from a None chair using your arms? (e.g., wheelchair, bedside chair) Walking in hospital A little room? Climbing 3-5 steps A little with a railing? Mobility Score 22 Mobility Level [facility] Mobility 7 Walk 25 feet or more Mobility Calculator Rehab PT IP Eval Objective Appearance Patient Behavior Appropriate,Cooperative Patient Orientation Person,Place Difficulty following none instructions Speech Pattern Clear Ambulation Patient Able to Yes Ambulate Ambulation Observation IP General Gait Wide Based Gait Pattern Observation Ambulation Distance 20 (feet) Ambulation Assistive Rolling Walker Device Ambulation Ability Contact Guard/Hand Hold Balance Ability to Arise Able, uses arms to help Sitting Balance Steady, safe Standing Balance Steady, wide stance Dynamic Sitting Good Balance Ability Dynamic Standing Fair Balance Ability Transfers Bed Transfer Ability Independent Sit to Stand Bed Independent Transfer Ability Rehab PT IP prob,goals,plan Problems Date of Evaluation: 10/17/24 Rehab Potential Rehab Potential Innapropriate for Skilled Therapy Discharge Plan PT Discharge Plan Pt most appropriate to d/c home when deemed medically necessary d/t current level of mobility, home set-up, and family support. Pt not appropriate for skilled acute care PT at this time d/t pt?s mobility being at baseline. Pt needs a RW to maximize IND/safety with mobility and minimize furniture walking. Eval Complexity Eval Charge Codes 32104 - Moderate Complexity PHYSICIAN CERTIFICATION: I certify the specified therapy services for Blue (Beth) Joann Bricekim are required, authorized, and reviewed every 30 days.
[2024-10-17 11:02] LABS: POC Glucose,Bedside 151 (70-110)
[2024-10-17] MEDS: ALPRAZolam 0.5MG TABLET 0.5 MG PO (11:19)
[2024-10-17 11:23] LABS: POC Glucose,Bedside 158 (70-110)
[2024-10-17 11:47] VITALS: BP 143/67; PULSE 73; RESP 18; TEMP 36.8; O2SAT 98
--- NOTE | 2024-10-17 12:13 | HMH.OTEV ---
OT Inpatient Evaluation Rehab OT IP Evaluation Start: 10/16/24 21:04 Freq: ONCE Status: Active Protocol: Document 10/17/24 12:06 JIM (Rec: 10/17/24 12:12 JIM [id number]) Rehab OT IP Assessment Subjective History Per HPI narrative: Patient is a 49-year-old female with past medical history of rje-qgipzop-zvpfijstn diabetes, fibromyalgia , irritable bowel syndrome who presents to the emergency department for evaluation of multiple complaints. Over the last 4 days she has had nausea, vomiting, diarrhea. Vomiting diarrhea are nonbloody. She has diffuse myalgias. She has been unable to tolerate her medications at home or p.o. intake causing her to come here for continued evaluation. No chest pain. There is an associated cough. No dysuria reported. She is complaining of muscle tension in her back that is radiating up into her head causing her to have a headache which she has had previously. Subjective I do not want therapy. Pt was supine in bed when therapy arrived. Pt was getting blood drawn and other tests completed. pt agreed to answer questions. Pt was orient x3. pt reports they live with , son and 2 grandchildren in single story home with 3/4 steps with no hand rails due to city making them remove hand rails. pt reports they do not have a walker and uses furniture for functional mobility tasks. pt reports they have a shower chair and raised toilet seat. pt reports asssits in LB dressing and pt is ind in UB dressing. pt reports they still drive occasionally. pt reports has always taken care of home. pt reports they are able to cook and clean when needed. pt reports she is at baseline. pt reports she never really leaves the house unless needed. Objective Patient Orientation Person,Place,Birthday Right Upper WFL Extremity Gross ROM Left Upper Extremity WFL Gross ROM Decrease in Yes Endurance Rehab OT IP prob,goals,plan Problems Date of Evaluation: 10/17/24 OT IP Problems Bed Mobility,Transfers,Balance,Self care,Safety Rehab Potential Rehab Potential Innapropriate for Skilled Therapy Equipment Needs Assistive Devices Standard Walker Discharge Goals Commode/Toilet Raised Toilet Seat,Grab Bars Transfer Assistive Devices Discharge Plan OT Discharge Plan At this time, pt is at baseline and does not require skilled acute OT services and interventions to address functional limitations in occupational performance. Once DC from [facility], pt could benefit from home health services for skilled OT services and interventions to address functional limitations in occupational performance and help with caregiver education and burden. Eval Complexity Eval Charge Codes 70701 - Moderate Complexity PHYSICIAN CERTIFICATION: I certify the specified therapy services for Su MaderaPepper) Joann Thomson are required, authorized, and reviewed every 30 days.
--- NOTE | 2024-10-17 13:01 | P.DS_ITS ---
General Admission date:: 10/14/24 HPI HPI HPI: Ms. Thomson is a 49-year-old morbidly obese female with diabetes, depression, fibromyalgia, depression, neuropathy who presented the ER with 4 to 5 days of nausea, vomiting, diarrhea. States she has been too weak to care for self. Hurts all over from vomiting so much. Has also been coughing. Denies sheba fever. No blood in vomit or stool. Has not been able to take her medications. Has not been taking them consistently prior to getting sick due to lack of PCP at this time. On arrival to the ER, patient meeting sepsis criteria with tachycardia, white count of 28,000, concern for UTI on urinalysis. Lab abnormalities include elevated anion gap at 19. Acute kidney injury with BUN 30, creatinine 2.3. Glucose elevated almost 400. Severe electrolyte disturbances and magnesium 1.2. Medicine was consulted for admission due to metabolic disturbances and sepsis. Admitted to stepdown unit. Requiring 2 L nasal cannula oxygen at time of admission. CT abdomen relatively unremarkable. Urine grossly abnormal with white cells, bacteria, leuk esterase positive. Initiated on broad-spectrum antibiotics With vancomycin and Zosyn. Currently receiving her third liter of IV fluids at a maintenance rate by the time of my evaluation. Exam Data for Last 24 hours Vital signs and Labs for Last 24 Hours: Temp Pulse Resp BP Pulse Ox O2 Del Method O2 Flow Rate 98.2 F 73 18 143/67 H 98 Room Air 1 10/17/24 11:47 10/17/24 11:47 10/17/24 11:47 10/17/24 11:47 10/17/24 11:47 10/17/24 11:47 10/17/24 06:30 Laboratory Results - last 24 hr 10/16/24 09:28: POC Glucose 151 H 10/16/24 16:25: POC Glucose 198 H 10/16/24 20:18: POC Glucose 202 H 10/17/24 05:39: POC Glucose 162 H 10/17/24 06:23: WBC 10.4, RBC 4.14 L, Hgb 11.7 L, Hct 36.0 L, MCV 87.0, MCH 28.3 , MCHC 32.5, RDW 13.2, Plt Count 169, MPV 11.3 H, Neut % (Auto) 81.8 H, Lymph % (Auto) 5.9 L, [place] % (Auto) 9.2, Eos % (Auto) 1.5, Baso % (Auto) 0.4, Neut # (Auto) 8.5 H, Lymph # (Auto) 0.6 L, [place] # (Auto) 1.0, Eos # (Auto) 0.2, Baso # (Auto) 0.0, Sodium 133 L, Potassium 4.1 D, Chloride 108 H, Carbon Dioxide 18 L, Anion Gap 11.1, BUN 28 H, Creatinine 1.70 H, Estimated Creat Clear 34, Estimated GFR 32 L, Est GFR ( Amer) 38 L, Glucose 182 H, Calcium 8.4, Magnesium 1.9 D, Total Bilirubin 0.7, AST 21, ALT 14, Alkaline Phosphatase 103, Total Protein 6.0 L, Albumin 2.8 L, Globulin 3.2, Albumin/Globulin Ratio 0.9 L 10/17/24 11:15: POC Glucose 158 H I & O for Last 24 hours: Intake & Output 10/14/24 10/15/24 10/16/24 10/17/24 23:59 23:59 23:59 23:59 Intake Total 700 / 1850 3777 / 3827 1542 / 2047 505 / 505 Output Total 775 / 875 1750 / 1750 3950 / 3950 0 / 0 Balance -75 / 975 202 / 2076 -2408 / -1903 505 / 505 Weight 127.006 kg 123.967 kg 126 kg 124.556 kg Microbiology Reports for the Last 24 Hours: Microbiology 10/14/24 11:50 Urine,Clean Catch Urine Culture - Final Escherichia coli 10/14/24 11:07 Blood Blood Culture - Final Escherichia coli 10/14/24 09:45 Blood Blood Culture - Final Escherichia coli Results Data Completed and Pending Labs on day of discharge: Labs from last 24 hours 10/17/24 10/17/24 10/17/24 11:15 06:23 05:39 WBC 10.4 RBC 4.14 L Hgb 11.7 L Hct 36.0 L MCV 87.0 MCH 28.3 MCHC 32.5 RDW 13.2 Plt Count 169 MPV 11.3 H Neut % (Auto) 81.8 H Lymph % (Auto) 5.9 L [place] % (Auto) 9.2 Eos % (Auto) 1.5 Baso % (Auto) 0.4 Neut # (Auto) 8.5 H Lymph # (Auto) 0.6 L [place] # (Auto) 1.0 Eos # (Auto) 0.2 Baso # (Auto) 0.0 Sodium 133 L Potassium 4.1 D Chloride 108 H Carbon Dioxide 18 L Anion Gap 11.1 BUN 28 H Creatinine 1.70 H Estimated Creat Clear 34 Estimated GFR 32 L Est GFR ( Amer) 38 L Glucose 182 H POC Glucose 158 H 162 H Calcium 8.4 Magnesium 1.9 D Total Bilirubin 0.7 AST 21 ALT 14 Alkaline Phosphatase 103 Total Protein 6.0 L Albumin 2.8 L Globulin 3.2 Albumin/Globulin Ratio 0.9 L 10/16/24 10/16/24 10/16/24 20:18 16:25 09:28 WBC RBC Hgb Hct MCV MCH MCHC RDW Plt Count MPV Neut % (Auto) Lymph % (Auto) [place] % (Auto) Eos % (Auto) Baso % (Auto) Neut # (Auto) Lymph # (Auto) [place] # (Auto) Eos # (Auto) Baso # (Auto) Sodium Potassium Chloride Carbon Dioxide Anion Gap BUN Creatinine Estimated Creat Clear Estimated GFR Est GFR ( Amer) Glucose POC Glucose 202 H 198 H 151 H Calcium Magnesium Total Bilirubin AST ALT Alkaline Phosphatase Total Protein Albumin Globulin Albumin/Globulin Ratio DS: Diagnosis Discharge Diagnosis (1) Mediastinal lymphadenopathy: Status: Acute Code(s): R59.0 - Localized enlarged lymph nodes (2) Splenomegaly: Status: Acute Code(s): R16.1 - Splenomegaly, not elsewhere classified (3) Sepsis: Status: Acute Code(s): A41.9 - Sepsis, unspecified organism Meds Home Medications and Allergies Home Medications ?Medication ?Instructions ?Recorded ?Confirmed ?Type gabapentin 300 mg capsule 300 mg PO TID Pain 10/01/22 10/15/24 History metformin 1,000 mg tablet 1,000 mg PO BID Diabetes 10/15/24 History propranolol 20 mg tablet 20 mg PO BID HEARTRATE 11/1810/15/24 History tizanidine 4 mg tablet 4 mg PO QIDP PRN Pain 10/15/24 History duloxetine 60 mg capsule,delayed 60 mg PO DAILY 30 day s #30 caps 10/17/24 Rx release levofloxacin 750 mg tablet 750 mg PO Q48H 6 days #3 ta bs 10/17/24 Rx levothyroxine 300 mcg tablet 300 mcg PO AM thyroid 30 days #30 10/17/24 Rx tabs New Prescriptions to Start Prescriptions: Brice Ramirez levofloxacin Brice Hayes levothyroxine Brice Hayes Allergies Allergy/AdvReac Type Severity Reaction Status Date / Time sulfamethazine Allergy Mild I-HIVES Verified 08/18/23 08:26 (SULFAMETHAZINE) tramadol (TRAMADOL) Allergy Mild Rash Verified 10/14/24 11:34 trimethoprim (TRIMETHOPRIM) Allergy Mild I-HIVES Verified 08/18/23 08:26 codeine (CODEINE) Allergy Unknown Other Verified 10/14/24 11:34 Cephalosporins Allergy Hives Verified 10/16/24 07:28 Iodinated Contrast Media Allergy Other Verified 10/14/24 11:34 Discharge Plan Disposition Patient Disposition: Home, Self-Care Condition: Fair Discharge Order Discharge Orders: Discharge Order (Routine); Ordered 10/17/24 Ordered By: Brice Hayes Follow up Plan Follow up with: Provider,ReferralMD [Primary Care Provider, Medical] - Enter time for follow up Arnold Webb MD [Physician, Pulmonology] - 11/14/24 1:00 pm Prescriptions/Medication Reconciliation: New duloxetine 60 mg capsule,delayed release(DR/EC) 60 mg PO DAILY 30 Days Qty: 30 0RF levofloxacin 750 mg tablet 750 mg PO Q48H 6 Days Qty: 3 0RF Continued tizanidine 4 mg tablet 4 mg PO QIDP PRN (Reason: Pain) metformin 1,000 mg tablet 1,000 mg PO BID gabapentin 300 mg capsule 300 mg PO TID propranolol 20 mg tablet 20 mg PO BID levothyroxine 300 mcg tablet 300 mcg PO AM 30 Days Qty: 30 0RF Discontinued duloxetine 30 mg capsule,delayed release(DR/EC) 30 mg PO DAILY Patient Comments: TAKE 1 CAPSULE BY MOUTH ONCE DAILY WITH 60MG DOSE levothyroxine 100 mcg Tablet 100 mcg PO HS Problem Reconciliation Problems Reviewed?: Yes Patient Discharge Instructions Patient Instructions: DI for Escherichia Coli (E. Coli) Infection, DI for Lymphadenopathy, DI for Enlarged Spleen Print Language: Zimbabwean Providers Primary Care Provider: Provider,Referral Admit Provider: Daren Schuler Attending Provider: Daren Schuler
--- NOTE | 2024-10-18 10:21 | SW/DCPLANNER ---
Spoke with patient on the phone. Patient stated that she still feels sick. Patient stated that she is aware of her upcoming appointments. Patient stated that she was able to get her new medicine picked up from clinic pharmacy. Patient stated that she had the best care while she was in the hospital. Patient stated that she has no concerns or questions at this time. Sue Oden
== END 2024-10-17 14:05 | disposition home or self-care (01) | DRG 871 ==
LOC: ER 11:46 → ICU 16:54 → 2ND 10-16 17:29
PROVIDERS: Admitting Provider Internal Medicine Adolescent Medicine; Emergency Provider Emergency Medicine; Visit Provider Internal Medicine Adolescent Medicine
DX: A41.51 Sepsis due to Escherichia coli [E. coli] (principal); E11.10 Type 2 diabetes mellitus with ketoacidosis without coma; N39.0 Urinary tract infection, site not specified; E87.1 Hypo-osmolality and hyponatremia; N17.9 Acute kidney failure, unspecified; Z68.42 Body mass index [BMI] 45.0-49.9, adult; R59.0 Localized enlarged lymph nodes; R16.1 Splenomegaly, not elsewhere classified; E11.40 Type 2 diabetes mellitus with diabetic neuropathy, unspecified; F32.A Depression, unspecified; E66.01 Morbid (severe) obesity due to excess calories; M79.7 Fibromyalgia; I10 Essential (primary) hypertension; F17.210 Nicotine dependence, cigarettes, uncomplicated; E03.9 Hypothyroidism, unspecified; K21.9 Gastro-esophageal reflux disease without esophagitis; F41.9 Anxiety disorder, unspecified; E87.6 Hypokalemia; R09.02 Hypoxemia; G47.30 Sleep apnea, unspecified; Z87.440 Personal history of urinary (tract) infections; Z79.84 Long term (current) use of oral hypoglycemic drugs; Z79.85 Long-term (current) use of injectable non-insulin antidiabetic drugs; Z79.890 Hormone replacement therapy; Z79.899 Other long term (current) drug therapy; Z88.5 Allergy status to narcotic agent; Z88.2 Allergy status to sulfonamides; Z88.6 Allergy status to analgesic agent; Z88.1 Allergy status to other antibiotic agents; Z91.041 Radiographic dye allergy status; Z91.148 Patient's other noncompliance with medication regimen for other reason
CPT/HCPCS: 36415; 70450; 71045; 71250; 74176; 80048; 80053; 80202; 81001; 82009; 82550; 82803; 82962; 83036; 83605; 83690; 83735; 83880; 84100; 84439; 84443; 85007; 85025; 86803; 87040; 87077; 87086; 87088; 87186; 87389; 87633; 87636; 93005; 97162; 97166; J0131; J0780; J1200; J1650; J1956; J2270; J2405; J2543; J3372; J3475; J3480; J7030; J7120

== ENCOUNTER 2024-11-29 16:34 | Outpatient (CLI) | payer OTHER, SELFPAY ==
[2024-11-29 17:45] LABS: Alanine Aminotransferase 15 U/L (12-78); Albumin Level 4.3 g/dl (3.5-5.0); Albumin/Globulin Ratio 1.3 (1.1-1.8); Alkaline Phosphatase 120 U/L (38-126); Anion Gap 18.9 mEq/L (5-15); Aspartate Amino Transferase 21 U/L (14-36); Bilirubin,Total 0.6 mg/dl (0.2-1.3); Blood Urea Nitrogen 20 mg/dl (7-17); Calcium 10.2 mg/dl (8.4-10.2); Carbon Dioxide 17 mmol/L (22.0-30.0); Chloride 102 mmol/L (98-107); Creatinine,Serum 1.20 mg/dl (0.52-1.04); Estimated Glomerular Filt Rate 47 ml/min (>60); GFR (African American) 57 ML/MIN (>60); Globulin 3.4 g/dL (1.3-3.2); Glucose 234 mg/dl (74-100); Potassium 4.9 mmoL/L (3.5-5.1); Sodium 133 mmol/L (136-145); Total Protein,Serum 7.7 g/dl (6.3-8.2)
== END 2024-11-29 23:59 | disposition home or self-care (01) ==
LOC: LAB.DROPOF 16:35
PROVIDERS: PCP Internal Medicine; Visit Provider Internal Medicine
DX: N17.9 Acute kidney failure, unspecified (principal); N18.9 Chronic kidney disease, unspecified
CPT/HCPCS: 80053

== ENCOUNTER 2024-12-06 10:17 | Outpatient (CLI) | payer OTHER, SELFPAY ==
--- NOTE | 2024-12-06 10:21 | XR_ITS ---
FINAL REPORT CLINICAL HISTORY: right hip pain COMPARISON: 08/20/2022 FINDINGS: RIGHT HIP Three views were obtained. There is no fracture or dislocation. There are moderate degenerative changes, similar to prior exam. No soft tissue abnormality is identified. IMPRESSION: Stable degenerative changes. Reviewed, Interpreted and Dictated by Kd Chawla MD Transcribed by Brooke Otero Authenticated and [facility]
== END 2024-12-06 23:59 | disposition home or self-care (01) ==
LOC: RAD 10:18
PROVIDERS: PCP Internal Medicine; Visit Provider Physician Assistant
DX: M16.11 Unilateral primary osteoarthritis, right hip (principal)
CPT/HCPCS: 73502

== ENCOUNTER 2024-12-27 13:02 | Outpatient (POV) | payer OTHER, SELFPAY ==
--- OUTSIDE RECORDS SUMMARY | 2024-12-26 13:50 | XMS_ITS | Encounter Summary ---
Author Organization Healthcare Address [address] [place] [address] Care Team Providers Care Assembly Machine Tender Name Role Phone Pietro Jeff Osmel MONTES Primary Care Provider [phone] Reason for Visit * Reason Comments Pain * Consultation (Routine) - Closed Specialty Diagnoses / Procedures Referred By Contac t Referred To Contact Orthopaedic Surgery Diagnoses Arthritis of right hip Right hip pain Nate Dalton PA [address] [place] [address] [place] [address] Phone: tel: fax: Referral ID Status Reason Start Date Expiration Date V isits Requested Visits Authorized [id number] Closed Specialty Services Required 12/13/2024 06/14/2026 1 1 Encounter Details Date Type Department Care Team (Late st Contact Info) Description 12/26/2024 1:50 PM EDT Office Visit Medical Office Building [facility] [address] [facility], [address] [place] [address] Alejo Plascencia MD [address] [facility] [address] [place] [address] Hip pain, right (Primary Dx) Social History Tobacco Use Types Packs/Day Years Used Date Smoking Tobacco: Every Day Cigarettes 1 31.6 Started: 05/17/1993 Passive Smoke Exposure: Never Smokeless [...] half and stop vaping Get Cleared by upholsterer helper See dentist about teeth Follow up as [...] documented as of this encounter Care Teams Assembly Machine Tender Relationship Specialty Start Date End Date Jeff Westbrook DO [address] [place] [address] [place] [address] PCP - General 12/13/24 documented as of this encounter
--- OUTSIDE RECORDS SUMMARY | 2024-12-26 14:02 | XMS_ITS | Encounter Summary ---
Author Organization Healthcare Address [address] [place] [address] Care Team Providers Care Run Boat Operator Name Role Phone Jeff Westbrook Osmel DO Primary Care Provider [phone] Encounter Details Date Type Department Care Team (Latest Contact Info) Description 12/26/2024 2:02 PM EDT - 12/26/2024 11:59 PM EDT Hospital Encounter Medical Office Building Radiology [address] [place] [address] Hip pain, right Discharge Disposition: [...] documented as of this encounter Care Teams Run Boat Operator Relationship Specialty Start Date End Date Jeff Westbrook DO [address] [place] [address] PCP - General 12/13/24 documented as of this encounter
--- OUTSIDE RECORDS SUMMARY | 2024-12-27 13:08 | XMS_ITS | Encounter Summary ---
Author Organization Healthcare Address [address] [place] [address] Care Team Providers Care Inspector And Adjuster Golf Club Head Name Role Phone Jeff Westbrook DO Primary Care Provider [phone] Encounter Details Date Type Department Care Team (Late st Contact Info) Description 12/06/2024 Orders Only External Location [address] [place] [address] Nate Dalton PA [address] [place] [address] Social History Tobacco Use Types Packs/Day Years Used Date Smoking Tobacco: Never Assessed Comments Unknown Sex and Gender Information Value Date Recorded Sex Assigned at Not on file Legal Sex Female 10:48 AM EDT Gender Identity Not on file Sexual Orientation Not on file documented as of this encounter Plan of Treatment Not on file documented as of this encounter Procedures Procedure Name Priority Date/Time Associated Diagnosis Comments XR OUTSIDE IMAGES 12/06/2024 10:21 AM EDT documented in this encounter Results * XR OUTSIDE IMAGES (12/06/2024 10:21 AM EDT) Anatomical Region Laterality Modality Radiographic Angelique ging 12/06/2024 10:2 1 AM EDT us Nate HERNANDEZ IMG XR PROCEDURES Final Result documented in this encounter Visit Diagnoses Not on filedocumented in this encounter Care Teams Inspector And Adjuster Golf Club Head Relationship Specialty Start Date End Date Jeff Westbrook DO [address] [place], [place] [address] PCP - General 12/13/24 documented as of this encounter
--- OUTSIDE RECORDS SUMMARY | 2024-12-27 13:08 | XMS_ITS | Encounter Summary ---
Author Organization Healthcare Address [address] [place] [id number] Care Team Providers Care College And Career Counselor Name Role Phone Jeff Westbrook DO Primary Care Provider [phone] Encounter Details Date Type Department Care Team (Latest Contact Info) Description 12/26/2024 Travel Social History Tobacco Use Types Packs/Day Years [...] on file documented as of this encounter Visit Diagnoses Not on filedocumented in this encounter Additional Health Concerns Assessment Noted Time A fall risk assessment has been complete d for the patient 12/26/2024 2:28 PM EDT A Body Mass Index follow-up plan has been documented for the patient 12/27/2024 7:35 AM EDT documented as of this encounter Care Teams College And Career Counselor Relationship Specialty Start Date End Date Jeff Westbrook DO [address] [place] [address] PCP - General 12/13/24 documented as of this encounter
--- OUTSIDE RECORDS SUMMARY | 2024-12-27 13:08 | XMS_ITS | Clinical Summary ---
Author Organization Healthcare Address [address] [place] [address] Care Team Providers Care Manager Story Name Role Phone Jeff Westbrook Osmel DO Primary Care Provider [phone] Allergies No known active allergies Medications Acetaminophen Extra Strength 500 MG tablet Take 1 tablet by mouth every 6 hours as needed. 4 Active ALPRAZolam (Xanax) 1 MG tablet TAKE TWO TABLETS BY MOUTH EVERY DAY AT BEDTIME FOR panic attacks 5 Active DULoxetine (Cymbalta) [address] capsule 5 Active Jardiance 10 MG 5 Active gabapentin (Neurontin) 300 MG capsule TAKE ONE CAPSULE BY MOUTH THREE TIMES DAILY FOR PAIN MAY CAUSE DROWSINESS 5 Active levothyroxine (Synthroid, Unithroid) 300 MCG tablet Take 1 tablet by mouth daily. 4 Active meloxicam (Mobic) 15 MG tablet Take 1 tablet by mouth daily. 4 Active promethazine (Phenergan) 12.5 MG tablet 5 Active propranolol (Inderal) 20 MG tablet 5 Active Ozempic, 0.25 or 0.5 MG/DOSE, 2 MG/3ML solution pen-injector 5 Active tiZANidine (Zanaflex) 4 MG tablet 5 Active traZODone (Desyrel) 150 MG tablet 5 Active Encounters Date Type Department Care Team Description 12/26/2024 2:02 PM EDT - 12/26/2024 11:59 PM EDT Hospital Encounter Medical Office Building Radiology [address] [place] [address] Hip pain, right Discharge Disposition: Home or Self Care 12/26/2024 1:50 PM EDT Office Visit Medical Office Building [facility] [address] [facility], [address] [place] [address] Alejo Plascencia MD Hip pain, right (Primary Dx) 12/26/2024 Travel 12/06/2024 Orders Only External Location [address] [place] [address] Nate Dalton PA from Last 3 Months Social History Tobacco Use Types Packs/Day Years [...] on file Sexual Orientation Not on file Last Filed Vital Signs Vital Sign Reading [...] Mass Index 44.11 12/26/2024 2:28 PM EDT Plan of Treatment Health Maintenance Due Date Last Done Comments [facility]-Depression Screening 1973 [facility]-HIV Screening 1973 [facility]-Hepatitis C Screening 1973 [facility]-Infant/Child/Adol SDOH Screenings 1973 [id number] Vaccine (#1) 1978 [facility]- SDOH Screenings 1991 [facility]-Adult SDOH Screenings 1991 [facility]-DTaP,Tdap,and Td Vaccine s (1 - Tdap) 02/10/1992 [facility]-Hepatitis B Vaccines (1 of 3 - 19+ 3-dose series) 02/10/1992 [facility]-Pneumococcal Vaccine: 50 + Years (1 of 2 - PCV) 02/10/1992 [facility]-Pap Smear 1994 [facility]-Cervical Cancer Screening 2003 [facility]-HPV/Cotest 2003 CT Colonography 2018 Colonoscopy 2018 FIT-DNA 2018 FIT 2018 FOBT 2018 Sigmoidoscopy 2018 [facility]-Colorectal Cancer Screening 2018 [facility]-Breast Cancer Screening 2023 [facility]-Lung Cancer Screening 2023 [facility]-Zoster Vaccines (1 of 2) 2023 [facility]-Influenza Vaccine (#1) 2025 [facility]-Obesity Intervention Completed 12/26/2024 HPV Vaccines Aged Out No longer eligi ble based on patient's age to complete this topic [facility]-HIB Vaccines Aged Out No longer e ligible based on patient's age to complete this topic [facility]-Hepatitis A Vaccines Aged Out No longer eligible based on patient's age to complete this topic [facility]-IPV Vaccines Aged Out No longer e ligible based on patient's age to complete this topic [facility]-Rotavirus Vaccines Aged Out No lo nger eligible based on patient's age to complete this topic Procedures Procedure Name Priority Date/Time Associated Diagnosis Comments XR HIP RIGHT 2 OR 3 VIEWS Routine 12/26/2024 2:18 PM EDT Hip pain, right XR OUTSIDE IMAGES 12/06/2024 10: 21 AM EDT from Last 3 Months Results * New Patient: XR Hip (AP [...] MD IMG XR PROCEDURES Final R esult * XR OUTSIDE IMAGES (12/06/2024 10:21 AM EDT) Anatomical Region Laterality Modality Radiographic Angelique ging 12/06/2024 10:2 1 AM EDT Nate HERNANDEZ IMG XR PROCEDURES Final Result from Last 3 Months Insurance [facility] [facility] MEDICAID Care Teams Manager Story Relationship Specialty Start Date End Date Jeff Westbrook DO [address] [place] [address] PCP - General 12/13/24
[2024-12-27 13:59] VITALS: BP 134/64; PULSE 84; RESP 14; O2SAT 96; BMI 44.1
--- NOTE | 2024-12-27 15:08 | A.OFFVIS_ITS ---
[facility] Disclaimer: The information contained in this section may have been updated after the patient was seen, as this information can be updated by other users. Medical History Neuropathy PTSD (post-traumatic stress disorder) Splenomegaly Mediastinal lymphadenopathy Sepsis Kidney stone Urinary tract infection Pneumonia History of COVID-19 Bronchitis History of stroke Migraine Arthritis Hives History of gastroesophageal reflux (GERD) Allergies Hypertension History of anemia Fibromyalgia Migraines IBS (irritable bowel syndrome) Depression Anxiety Hypothyroid Diabetes Surgical History History of surgery RIGHT HIP INJECTION History of cholecystectomy History of tubal ligation History of D&C History of section Family History Other Cancer Family history of cardiac disorder Family history of depression Family history of diabetes mellitus Family history of liver disease Social History Smoking Status: Current every day smoker tobacco type: cigarettes packs per day: 1 second hand exposure: Yes alcohol intake: never substance use type: denies use current occupational status: employed and unemployed Travel in the last 8 weeks?: None household members: spouse housing: house PM Subjective & Objective Subjective Subjective:: Patient is a pleasant 49-year-old female who presents today for worsening low back and hip pain primarily on the right side. Patient was seen in our office in the past however did not get injections. Patient does state that she is interested in any help we may be able to provide. Patient has chronic pain in her back hip and neck. She does state that the low back is definitely worse and that it does interfere with her ability perform activities of daily living such as cooking and cleaning. Patient does describe it as an aching, throbbing sensation with some numbness. She states it is worse with prolonged sitting or walking. Patient has tried xatf-hsy-ubfeyry medications, heat and ice and topicals with minimal changes. Patient did also see a surgeon in [place] who did want to do a hip replacement for her however states because she is a smoker and overweight that it would have to be postponed. Patient is wanting to try conservative therapy such as the injections. Her Noble has been reviewed and is appropriate. Review of Systems: General: No recent weight changes, no fever, no sleep disturbances Respiratory: No cough, no shortness of air, no recurring pulmonary infections Cardiovascular/peripheral vascular: No chest pain, no palpitations, no edema, no shortness of breath Gastrointestinal: No new onset incontinence, normal bowel movements reported Genitourinary: No new onset incontinence Musculoskeletal: Low back pain, right hip pain Psychiatric: [Normal mood/affect] Neurological: [Denies weakness in extremities], [denies balance issues] Pain at rest (0-10 scale): 6 Objective Objective:: Physical Exam: General: Alert and oriented x3, no acute distress, pleasant and cooperative Lungs: Respirations even and unlabored, symmetrical chest expansion Eyes: PERRL Musculoskeletal: Flexion and extension of lumbar [spine] somewhat guarded secondary to pain, [antalgic gait noted] point tenderness along right SI with positive right Isi's, Alxeandria's, Gaenslen's, compression and distraction exam Neurological: Speech clear, no gross sensory deficit Has patient had previous pain injection?: No Conservative treatment options previously tried: Home exercise plan Length of treatment: Longer than 12 weeks Meds Home Medications and Allergies Home Medications ?Medication ?Instructions ?Recorded ?Confirmed ?Type meloxicam 7.5 mg tablet 7.5 mg PO DAILY #30 tabs 03/1012/27/24 Rx gabapentin 300 mg capsule See Rx Instructions .Route 0 11/23/24 12/27/24 Rx .COMPLEX #90 caps levothyroxine 150 mcg tablet 300 mcg (2 x 150 mcg) PO DAILY #60 11/28/24 12/27/24 Rx tabs empagliflozin 10 mg tablet 10 mg PO DAILY #30 tabs 12/27/24 Rx (Jardiance) semaglutide 0.25 mg or 0.5 mg (2 0.25 mg (0.368 mL) SQ WEEKLY #3 mL 11/29/24 12/27/24 Rx mg/3 mL) subcutaneous pen injector (Ozempic) alprazolam 2 mg tablet 2 mg PO HS for panic attacks #15 12/13/24 12/27/24 Rx tabs duloxetine 60 mg capsule,delayed 60 mg PO DAILY #30 ca ps 12/13/24 12/27/24 Rx release mirtazapine 7.5 mg tablet 7.5 mg PO DAILY may take 1 o r 2 12/13/24 12/27/24 Rx tablets hour before bed for sleep 30 days #60 tabs prazosin 1 mg capsule 1 mg PO HS take at bedtime f or 12/13/24 12/27/24 Rx night terrors #30 caps promethazine 12.5 mg tablet See Rx Instructions .Route 12/26/24 12/27/24 Rx .COMPLEX #30 tabs propranolol 20 mg tablet See Rx Instructions .Route 0 12/26/24 12/27/24 Rx .COMPLEX #60 tabs tizanidine 4 mg tablet See Rx Instructions .Route 0 12/26/24 12/27/24 Rx .COMPLEX #60 tabs New Prescriptions to Start Prescriptions: Allergies Allergy/AdvReac Type Severity Reaction Status Date / Time sulfamethazine Allergy Mild I-HIVES Verified 12/13/24 08:17 (SULFAMETHAZINE) tramadol (TRAMADOL) Allergy Mild Rash Verified 12/13/24 08:17 trimethoprim (TRIMETHOPRIM) Allergy Mild I-HIVES Verified 12/13/24 08:17 codeine (CODEINE) Allergy Unknown Other Verified 12/13/24 08:17 Cephalosporins Allergy Hives Verified 12/13/24 08:17 Iodinated Contrast Media Allergy Other Verified 12/13/24 08:17 Assessment and Plan *Assessment and plan (1) Sacroiliitis: Status: Acute Category: Medical Code(s): M46.1 - Sacroiliitis, not elsewhere classified (2) Low back pain with sciatica: Status: Acute Qualifiers: Back pain laterality: unspecified Chronicity: acute Sciatica laterality: sciatica of right side Qualified Code(s): M54.41 - Lumbago with sciatica, right side Category: Medical Code(s): M54.40 - Lumbago with sciatica, unspecified side Plan Patient is experiencing worsening pain along the low back and right hip. They did have limited range of motion of the lumbar spine along with point tenderness along patient is being ordered a custom fitted LSO brace to reduce pain by restricting mobility of the spine. SI joints and a positive right Isi's, Alexandria's, Gaenslen's, compression and distraction exam. I did discuss with the patient that I do believe they would benefit from right SI injections. Risk and benefits were discussed with the patient and they would like to proceed forward with this option. Patient has tried and failed conservative therapy. Patient has been actively doing conservative treatment including oral medication, heat and ice, topicals, at home exercising and stretching for longer than 12 weeks. Patient is having to adjust their activity based off the increased pain resulting in activity modification. I do believe the patient would benefit from SI injection. If the patient does get significant relief following these injections we will see in the future if they would benefit from a second set with the possibility of SI fusion at a later date. This will be a diagnostic injection with less than 1 mL solution to be injected. Patient will be scheduled for right SI injections under fluoroscopy. Patient has been instructed to contact the clinic with any concerns before the next appointment. Dr. Trejo has reviewed this note and agrees with this plan of care. This note was dictated using voice recognition software and make contain errors or omissions. All injections are used with Lidocaine or Bupivacaine and dexamethasone unless diagnostic in which no steroids were injected.
== END 2024-12-27 23:59 | disposition home or self-care (01) ==
PROVIDERS: PCP Internal Medicine; Visit Provider Nurse Practitioner Family
DX: M46.1 Sacroiliitis, not elsewhere classified (principal); M54.41 Lumbago with sciatica, right side
CPT/HCPCS: 99212; G0463

== ENCOUNTER 2025-01-19 10:30 | Outpatient (CLI) | payer OTHER, SELFPAY ==
--- OUTSIDE RECORDS SUMMARY | 2024-12-26 13:50 | XMS_ITS | Encounter Summary ---
Author Organization Healthcare Address [address] [place] [address] Care Team Providers Care Miner Placer Name Role Phone Keli Westbrookew Osmel MONTES Primary Care Provider [phone] Reason for Visit * Reason Comments Pain * Consultation (Routine) - Closed Specialty Diagnoses / Procedures Referred By Contac t Referred To Contact Orthopaedic Surgery Diagnoses Arthritis of right hip Right hip pain Jasen Dalton PA [address] [place] [address] Phone: tel: fax: Referral ID Status Reason Start Date Expiration Date V isits Requested Visits Authorized [id number] Closed Specialty Services Required 12/13/2024 06/14/2026 1 1 Encounter Details Date Type Department Care Team (Late st Contact Info) Description 12/26/2024 1:50 PM EDT Office Visit Medical Office Building [facility] [address] [facility], [address] [place] [address] Alejo Plascencia MD [address] [facility] [address] [place] [address] Hip pain, right (Primary Dx) Social History Tobacco Use Types Packs/Day Years Used Date Smoking Tobacco: Every Day Cigarettes 1 31.7 Started: 05/17/1993 Passive Smoke Exposure: Never Smokeless Tobacco: Never Tobacco Cessation:Ready to Q uit: No; Counseling Given: No Alcohol Use Standard Drinks/Week Comments Never 0 (1 standard drink = 0.6 oz pur e alcohol) Comments No Sex and Gender Information Value Date Recorded Sex Assigned at Not on file Legal Sex Female 10:48 AM EDT Gender Identity Not on file Sexual Orientation Not on file documented as of this encounter Last Filed Vital Signs Vital Sign Reading Time Taken Comments Blood Pressure 123/83 12/26/2024 2:28 PM EDT Pulse 108 12/26/2024 2:28 PM EDT Temperature - - Respiratory Rate 18 12/26/2024 2:28 PM EDT Oxygen Saturation 94% 12/26/2024 2:28 PM EDT Inhaled Oxygen Concentration - - Weight 117 kg (257 lb) 12/26/2024 2:28 PM EDT Height 162.6 cm (5' 4 ) 12/26/2024 2:28 PM EDT Body Mass Index 44.11 12/26/2024 2:28 PM EDT documented in this encounter Miscellaneous Notes * Progress Notes - Ed Bradley PA - 12/26/2024 1:50 PM EDT This is a 49 y.o. female who presents to the clinic today for evaluation of right hip pain. She wasreferred to us for evaluation for JAISON. She has a history of diabetes, tobacco use and recent hospitalization for kidney failure. She is on ozempic and has lost about 100lbs. She does smoke a pack per day and vaping. Medical History: Past Medical History[1] Surgical History: Surgical History[2] Social History: Social History[3] Physical Examination: Vitals: 12/26/24 1428 BP: 123/83 Pulse: 108 Resp: 18 SpO2: 94% PHYSICAL EXAM: General: Alert and oriented and in no acute distress, speech is easily understandable, answers all questions appropriately. Skin: Appropriate for ethnicity, warm, dry, no abnormal skin changes. HEENT: Normocephalic, atraumatic, extraoccular movements intact Cardiopulmonary: Regular rate by palpation, equal chest expansion, no respiratory difficulty on room air Extremities: Extremities warm and well perfused Musculoskeletal: Pathology limited to the right hip, no abnormal skin changes, no palpable masses, no tenderness to palpation, distal circulation motor and sensation intact, muscle strength 5 out of 5, pain with internal/external rotation and log roll, stable to varus and valgus stress Imaging: XR Hip: images reviewed, moderate osteoarthritis of right hip Assessment: This is a 49 y.o. female with right hip osteoarthritis. Discussed that she is currently not a surgical candidate because of her BMI over 40, tobacco use and recent kidney failure. Plan: Discussed losing 50lbs Cut smoking down by half and stop vaping Get Cleared by zigzagger See dentist about teeth Follow up as needed [1] No past medical history on file. [2] No past surgical history on file. [3] Social History Socioeconomic History Marital status: Tobacco Use Smoking status: Every Day Current packs/day: 1.00 Average packs/day: 1 pack/day for 31.6 years (31.6 ttl pk-yrs) Types: Cigarettes Start date: 05/17/1993 Passive exposure: Never Smokeless tobacco: Never Vaping Use Vaping status: Every Day Substances: Nicotine, Flavoring Devices: Disposable Substance and Sexual Activity Alcohol use: Never Drug use: Never Cosigned by Alejo Plascencia MD at 12/27/2024 7:35 AM EDT Associated attestation - Alejo Plascencia MD - 12/27/2024 7:35 AM EDT I attest to being involved in providing substantive part of the medical decision making in patient care. documented in this encounter Plan of Treatment Not on file documented as of this encounter Results * New Patient: XR Hip (AP Pelvis Standing with Randy Marker / Frog Leg Lateral Standing) (12/26/2024 2:18 PM EDT) Anatomical Region Laterality Modality Lower Extremities, Hip Right Digital R adiography Impressions 12/26/2024 2:41 PM EDT Severe osteoarthrosis of the right hip. No acute osseous findings. CRITICAL RESULT: No. COMMUNICATION: Per this written report. Drafted by Aditya Acevedo on 12/26/2024 2:40 PM Final report signed by Aditya Acevedo on 12/26/2024 2:41 PM Narrative 12/26/2024 2:41 PM EDT CLINICAL INDICATION: hip pain TECHNIQUE: XR HIP RIGHT 2 OR 3 VIEWS COMPARISON: None. FINDINGS: Moderate to severe osteoarthrosis of the right hip with narrowing and osteophytosis. Moderate osteoarthrosis of the left hip. Mild osteoarthrosis of the pubic symphysis and joints. Enthesopathy along the iliac wings. No visibly displaced fractures. Femoral heads are well-seated within the acetabulum. Degenerative change of the visualized lower lumbar spine. Procedure Note Aditya Acevedo MD - 12/26/2024 CLINICAL INDICATION: hip pain TECHNIQUE: XR HIP RIGHT 2 OR 3 VIEWS COMPARISON: None. FINDINGS: Moderate to severe osteoarthrosis of the right hip with narrowing andosteophytosis. Moderate osteoarthrosis of the left hip. Mildosteoarthrosis of the pubic symphysis and joints. Enthesopathy along theiliac wings. No visibly displaced fractures. Femoral heads are well-seatedwithin the acetabulum. Degenerative change of the visualized lower lumbarspine. IMPRESSION: Severe osteoarthrosis of the right hip. No acute osseous findings. CRITICAL RESULT: No. COMMUNICATION: Per this written report. Drafted by Aditya Acevedo on 12/26/2024 2:40 PM Final report signed by Aditya Acevedo on 12/26/2024 2:41 PM Alejo Plascencia MD IMG XR PROCEDURES Final R esult documented in this encounter Visit Diagnoses Diagnosis Hip pain, right- Primary Pain in joint, pelvic region and thigh Hip pain, right Pain in joint, pelvic region and thigh documented in this encounter Additional Health Concerns Assessment Noted Time A fall risk assessment has been complete d for the patient 12/26/2024 2:28 PM EDT A Body Mass Index follow-up plan has been documented for the patient 12/27/2024 7:35 AM EDT documented as of this encounter Care Teams Miner Placer Relationship Specialty Start Date End Date Jeff Westbrook DO [address] [place] [address] [place] [address] PCP - General 12/13/24 documented as of this encounter
--- OUTSIDE RECORDS SUMMARY | 2024-12-26 14:02 | XMS_ITS | Encounter Summary ---
Author Organization Healthcare Address [address] [place] [address] Care Team Providers Care Airport Location Manager Name Role Phone Jeff Westbrook Osmel DO Primary Care Provider [phone] Encounter Details Date Type Department Care Team (Latest Contact Info) Description 12/26/2024 2:02 PM EDT - 12/26/2024 11:59 PM EDT Hospital Encounter Medical Office Building Radiology [address] [place] [address] Hip pain, right Discharge Disposition: Home or Self Care Social History Tobacco Use Types Packs/Day Years Used Date Smoking Tobacco: Every Day Cigarettes 1 31.7 Started: 05/17/1993 Passive Smoke Exposure: Never Smokeless Tobacco: Never Alcohol Use Standard Drinks/Week Comments Never 0 (1 standard drink = 0.6 oz pur e alcohol) Comments No Sex and Gender Information Value Date Recorded Sex Assigned at Not on file Legal Sex Female 10:48 AM EDT Gender Identity Not on file Sexual Orientation Not on file documented as of this encounter Medications at Time of Discharge Acetaminophen Extra Strength 500 MG tablet Take 1 tablet by mouth every 6 hours as needed. 02/01/2024 ALPRAZolam (Xanax) 1 MG tablet TAKE TWO TABLETS BY MOUTH EVERY DAY AT BEDTIME FOR panic attacks 12/13/2024 DULoxetine (Cymbalta) [address] capsule 12/25/2024 gabapentin (Neurontin) 300 MG capsule TAKE ONE CAPSULE BY MOUTH THREE TIMES DAILY FOR PAIN MAY CAUSE DROWSINESS 11/23/2024 Jardiance 10 MG 12/25/2024 levothyroxine (Synthroid, Unithroid) 300 MCG tablet Take 1 tablet by mouth daily. 01/21/2024 meloxicam (Mobic) 15 MG tablet Take 1 tablet by mouth daily. 01/21/2024 Ozempic, 0.25 or 0.5 MG/DOSE, 2 MG/3ML solution pen-injector 12/25/2024 promethazine (Phenergan) 12.5 MG tablet 12/26/2024 propranolol (Inderal) 20 MG tablet 12/26/2024 tiZANidine (Zanaflex) 4 MG tablet 12/26/2024 traZODone (Desyrel) 150 MG tablet 12/25/2024 documented as of this encounter Plan of Treatment Not on file documented as of this encounter Procedures Procedure Name Priority Date/Time Associated Diagnosis Comments XR HIP RIGHT 2 OR 3 VIEWS Routine 12/26/2024 2:18 PM EDT Hip pain, right documented in this encounter Results * New Patient: XR [...] by Aditya Acevedo on 12/26/2024 2:41 PM us Alejo Plascencia MD IMG XR PROCEDURES Final R esult documented in this encounter Visit Diagnoses Diagnosis Hip pain, right Pain in joint, pelvic region and thigh documented in this encounter Additional Health Concerns Assessment Noted Time A fall risk assessment has been complete d for the patient 12/26/2024 2:28 PM EDT A Body Mass Index follow-up plan has been documented for the patient 12/27/2024 7:35 AM EDT documented as of this encounter Care Teams Airport Location Manager Relationship Specialty Start Date End Date Jeff Westbrook DO [address] [place] [address] PCP - General 12/13/24 documented as of this encounter
--- OUTSIDE RECORDS SUMMARY | 2025-01-22 09:52 | XMS_ITS | Encounter Summary ---
Author Organization Healthcare Address [address] [place] [id number] Care Team Providers Care Recruiting Associate Name Role Phone Jeff Westbrook DO Primary Care Provider [phone] Encounter Details Date Type Department Care Team (Late st Contact Info) Description 12/06/2024 Orders Only External Location [address] [place] [address] Jasen Dalton PA [address] [place] [address] Social History Tobacco Use Types Packs/Day Years [...] Angelique ging 12/06/2024 10:2 1 AM EDT Jasen AVINA XR PROCEDURES Final Resul t documented in this encounter Visit Diagnoses Not on filedocumented in this encounter Care Teams Recruiting Associate Relationship Specialty Start Date End Date Jeff Westbrook DO [address] [place], [place] [address] PCP - General 12/13/24 documented as of this encounter
--- OUTSIDE RECORDS SUMMARY | 2025-01-22 09:52 | XMS_ITS | Clinical Summary ---
Author Organization Healthcare Address [address] [place] [address] Care Team Providers Care Senior Mechanical Designer Name Role Phone Jeff Westbrook Osmel DO Primary Care Provider [phone] Allergies No known active allergies Medications Acetaminophen [...] Encounter Medical Office Building Radiology [address] [place] [address] Hip pain, right Discharge Disposition: Home or Self Care 12/26/2024 1:50 PM EDT Office Visit Medical Office Building [facility] [address] [facility], [address] [place] [address] Alejo Plascencia MD Hip pain, right (Primary Dx) 12/26/2024 Travel 12/06/2024 Orders Only External Location [address] [place] [address] Jasen Dalton PA from Last 3 Months Social [...] C Screening 1973 [facility]-Infant/Child/Adol SDOH Screenings 1973 [id number] Vaccine (#1) 1978 [facility]- SDOH Screenings 1991 [...] ging 12/06/2024 10:2 1 AM EDT us Jasen HERNANDEZ IMG XR PROCEDURES Final Resul t from Last 3 Months Insurance [place] [id number] [employer] [facility] MEDICAID Care Teams Senior Mechanical Designer Relationship Specialty Start Date End Date Jeff Westbrook DO [address] [place] [address] PCP - General 12/13/24
--- OUTSIDE RECORDS SUMMARY | 2025-01-22 09:52 | XMS_ITS | Encounter Summary ---
Author Organization Healthcare Address [address] [place] [id number] Care Team Providers Care Chlorine Plant Operator Name Role Phone Jeff Westbrook DO Primary Care Provider [phone] Encounter Details Date Type Department Care Team [...] documented as of this encounter Care Teams Chlorine Plant Operator Relationship Specialty Start Date End Date Jeff Westbrook DO [address] [place] [address] PCP - General 12/13/24 documented as of this encounter
== END 2025-01-19 23:59 ==
LOC: LAB.DROPOF 01-22 09:47
PROVIDERS: PCP Internal Medicine; Visit Provider Internal Medicine
DX: N39.0 Urinary tract infection, site not specified (principal)
CPT/HCPCS: 87086; 87088; 87186

== ENCOUNTER 2025-02-06 11:05 | Day surgery (SDC) | payer OTHER, SELFPAY ==
[2025-02-06 11:10] VITALS: BP 114/80; PULSE 58; RESP 18; O2SAT 98; BMI 43.2
--- NOTE | 2025-02-06 11:17 | EXP.PAIN.PRO ---
Procedure Date: 02/06/25 Time: 11:00 Anesthesiologist:: Jose Alberto Orantes CRNA Complications:: None Pre-procedure Diagnosis:: Right sacroiliitis. Post-procedure Diagnosis:: Same. Indications for Procedure:: Patient is a pleasant 49-year-old female who comes our clinic today for right sacroiliac joint injection of local anesthetic for diagnostic purpose. She describes right low lumbar back pain. Right posterior hip pain difficulty transitioning from sitting to standing. Difficulty with ambulation. She rates her pain 7/10. Procedure Details:: Procedure: Right sacroliliac joint injection under fluoroscopy Informed consent was obtained and the risk and benefits of the procedure were explained to the patient.~ The patient was taken to the procedure room and noninvasive monitors were placed including noninvasive blood pressure cuff and pulse oximeter.~ The patient was placed prone on the procedure table.~ The~ right hip was cleansed using Betadine as a cleansing solution.~ C-arm fluorosocpy was used to view the right SI joint.~ The skin and subcutaneous tissues were anesthetized using Lidocaine 1.5% and a 25-gauge needle.~ After this, a 22-gauge spinal needle was inserted under fluoroscopic guidance into the inferior aspect of the right SI joint.~ Omnipaque dye was injected and a good spread was seen throughout the joint.~ After this, approximately 5 mL of bupivacaine 0.25% was incrementally injected into the sacroiliac joint.~ The patient tolerated the procedure well with no complications.~ The patient was observed in the Pain Clinic, then discharged home neurologically intact.~ Plan and Disposition:: Patient was discharged without incident.
[2025-02-06] MEDS: BUPIVACAINE 0.25% 10ML INJ 25 MG IJ (11:18)
[2025-02-06] MEDS: LIDOCAINE 1% 5ML PF VIAL 5 ML (11:18)
[2025-02-06 11:19] VITALS: BP 114/80; PULSE 58; RESP 18; O2SAT 98
[2025-02-06 11:20] VITALS: BP 114/80; PULSE 58; RESP 18; O2SAT 98
[2025-02-06 11:22] VITALS: BP 123/82; PULSE 90; RESP 16; O2SAT 93
== END 2025-02-06 11:22 | disposition home or self-care (01) ==
PROVIDERS: PCP Internal Medicine; Visit Provider Nurse Anesthetist, Certified Registered
DX: M46.1 Sacroiliitis, not elsewhere classified (principal); E03.9 Hypothyroidism, unspecified; F41.9 Anxiety disorder, unspecified; F32.A Depression, unspecified; K21.9 Gastro-esophageal reflux disease without esophagitis; E11.40 Type 2 diabetes mellitus with diabetic neuropathy, unspecified; F43.10 Post-traumatic stress disorder, unspecified; M16.11 Unilateral primary osteoarthritis, right hip; I10 Essential (primary) hypertension; F17.210 Nicotine dependence, cigarettes, uncomplicated; Z86.73 Personal history of transient ischemic attack (TIA), and cerebral infarction without residual deficits; Z88.2 Allergy status to sulfonamides; Z88.6 Allergy status to analgesic agent; Z88.1 Allergy status to other antibiotic agents; Z88.5 Allergy status to narcotic agent; Z91.041 Radiographic dye allergy status; Z79.1 Long term (current) use of non-steroidal anti-inflammatories (NSAID); Z79.890 Hormone replacement therapy; Z79.85 Long-term (current) use of injectable non-insulin antidiabetic drugs; Z79.899 Other long term (current) drug therapy
CPT/HCPCS: 64450; J0665; J2003

== ENCOUNTER 2025-03-02 10:49 | Outpatient (CLI) | payer OTHER, SELFPAY ==
--- NOTE | 2025-03-02 10:50 | XR_ITS ---
FINAL REPORT CLINICAL HISTORY: evaluate left foot pain FINDINGS: AP, oblique and lateral views of the left foot were obtained. There is no acute fracture or dislocation. There is mild multijoint degenerative disease, most pronounced at the first MTP joint. Soft tissues are unremarkable. IMPRESSION: No acute osseous abnormality of the left foot. Authenticated and ERN
--- NOTE | 2025-03-02 10:50 | XR_ITS ---
FINAL REPORT CLINICAL HISTORY: evaluate right foot pain FINDINGS: AP, oblique and lateral views of the right foot were obtained. There is no acute fracture or dislocation. There is mild degenerative joint disease of the hindfoot. Superior and inferior calcaneal spurs are noted. Soft tissues are unremarkable. IMPRESSION: No acute osseous abnormality of the right foot. Authenticated and ERN
--- OUTSIDE RECORDS SUMMARY | 2025-03-02 10:52 | XMS_ITS | Encounter Summary ---
Author Organization Healthcare Address [address] [place] [id number] Care Team Providers Care Tractor Technician Name Role Phone Jeff Westbrook DO Primary Care Provider [phone] Encounter Details Date Type Department Care Team (Late st Contact Info) Description 12/06/2024 Orders Only External Location [address] [place] [address] Jasen Dalton PA [address] [place] [address] Social History Tobacco Use Types Packs/Day Years [...] on filedocumented in this encounter Care Teams Tractor Technician Relationship Specialty Start Date End Date Jeff Westbrook DO [address] [place], [place] [address] PCP - General 12/13/24 documented as of this encounter
--- OUTSIDE RECORDS SUMMARY | 2025-03-02 10:52 | XMS_ITS | Clinical Summary ---
Author Organization Healthcare Address [address] [place] [address] Care Team Providers Care Glue Mill Operator Name Role Phone Jeff Westbrook Osmel DO Primary Care Provider [phone] Allergies No known active allergies Medications Acetaminophen [...] Encounter [facility] [address] [place] [address] Hip pain, right Discharge Disposition: Home or Self Care 12/26/2024 1:50 PM EDT Office Visit [facility] [address] [facility], [address] [place] [address] Alejo Plascencia MD Hip pain, right (Primary Dx) 12/26/2024 Travel 12/06/2024 Orders Only External Location [address] [place] [address] Jasen Dalton PA from Last 3 Months Social History Tobacco Use Types Packs/Day Years Used Date Smoking Tobacco: Every Day Cigarettes 1 31.8 Started: 05/17/1993 Passive Smoke Exposure: Never Smokeless [...] C Screening 1973 [facility]-Infant/Child/Adol SDOH Screenings 1973 [id number] Vaccine (#1) 1978 [facility]- SDOH Screenings 1991 [...] from Last 3 Months Insurance [place] [id number] [employer] [facility] MEDICAID Care Teams Glue Mill Operator Relationship Specialty Start Date End Date Jeff Westbrook DO [address] [place] [address] [place] [id number] PCP - General 12/13/24
--- NOTE | 2025-03-02 11:00 | US_ITS ---
FINAL REPORT TECHNIQUE: Sonographic images of the abdomen were obtained in all four quadrants. CLINICAL HISTORY: Splenomegaly FINDINGS: LIVER: Homogeneous. No focal hepatic lesion or intrahepatic biliary dilatation. The portal vein is patent. GALLBLADDER: The gallbladder is absent. The common duct measures 9 mm. This is mildly dilated after cholecystectomy. PANCREAS: Visualized pancreas is unremarkable. The tail is obscured. RIGHT KIDNEY: 9.6 cm. No hydronephrosis, mass or stone. LEFT KIDNEY: 11.1 cm. No hydronephrosis, mass or stone. SPLEEN: 11.7 cm. No focal splenic lesion. AORTA/IVC: No abdominal aortic aneurysm. Visualized IVC within normal limits. OTHER: No ascites. IMPRESSION: 1. Common duct dilatation even after cholecystectomy. If indicated, MRCP could be performed. 2. Unremarkable ultrasound of the spleen. Normal size. Authenticated and ERN
--- NOTE | 2025-03-02 12:30 | CT_ITS ---
FINAL REPORT TECHNIQUE: Thin section axial images were obtained from the lung apices through the upper abdomen without contrast. This study was performed with techniques to keep radiation doses as low as reasonably achievable (ALARA). Individualized dose reduction techniques using automated exposure control or adjustment of mA and/or kV according to the patient's size were employed. CLINICAL HISTORY: nodule COMPARISON: 10/14/2024 FINDINGS: There is no axillary lymphadenopathy. There are mildly enlarged mediastinal lymph nodes. For example, right paratracheal lymph node measures 21 mm, was 23 mm. The difference is likely due to slice selection. Other lymphadenopathy appears stable. No pleural or pericardial effusion. There is evidence of granulomatous disease. Left perihilar nodule measuring 7 mm on series 2, image 32 has not significantly changed. Right upper lobe nodule measuring 3 mm on series 2, image 29 is also unchanged. There is a very small nodule along the right minor fissure that is stable. Several additional nodules are seen in the inferior right upper lobe and right middle lobe. These are all stable as compared to prior. Several subpleural right lower lobe nodules are stable. For example, 5 mm nodule on series 2, image 47 previously measured 5 mm. Limited, unenhanced evaluation of the upper abdomen is without acute abnormality. There is no acute osseous abnormality. IMPRESSION: Stable mildly enlarged mediastinal lymphadenopathy and stable bilateral subcentimeter pulmonary nodules. Recommend continued follow-up. Reviewed, Interpreted and Dictated by Soni Augustine MD Transcribed by Brooke Otero Authenticated and [facility]
== END 2025-03-02 23:59 | disposition home or self-care (01) ==
LOC: RAD 10:49
PROVIDERS: PCP Internal Medicine; Visit Provider Internal Medicine Pulmonary Disease
DX: K83.8 Other specified diseases of biliary tract (principal); R59.0 Localized enlarged lymph nodes; R91.8 Other nonspecific abnormal finding of lung field; M79.671 Pain in right foot; M79.672 Pain in left foot; R16.1 Splenomegaly, not elsewhere classified; Z90.49 Acquired absence of other specified parts of digestive tract
CPT/HCPCS: 71250; 73630; 76700